=== PATIENT | female | born 1935 | race Caucasian/White ===

== ENCOUNTER 2021-02-25 16:56 | Inpatient (IN) | payer MEDICARE, OTHER, SELFPAY ==
--- NOTE | 2021-02-25 | ECG_ITS ---
Test Reason : LOW BP Blood Pressure : / mmHG Vent. Rate : 119 BPM Atrial Rate : 119 BPM P-R Int : 198 ms QRS Dur : 080 ms QT Int : 344 ms P-R-T Axes : 077 009 013 degrees QTc Int : 483 ms Sinus tachycardia Nonspecific ST and T wave abnormality Abnormal ECG When compared with ECG of 21-NOV-2012 16:13, Vent. rate has increased BY [address] now depressed in Lateral leads Inferior leads Referred By: Generic ED Physician Electronically Signed By:SHYANNE BOJORQUEZ MD
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
--- NOTE | ~2021-02-25 | XR_ITS ---
EXAMINATION: XR CHEST CLINICAL INFORMATION: Shortness of breath. COMPARISON: CT chest dated 08/20/2016. TECHNIQUE: Frontal view of the chest was obtained. FINDINGS: Diffuse, chronic-appearing interstitial prominence. Focal left lower lobe airspace opacity, which could represent atelectasis versus pneumonia. No pleural effusion or pneumothorax. Unremarkable cardiomediastinal silhouette. XR/XR chest 1V IMPRESSION: Left lower lobe opacity which could represent atelectasis versus pneumonia.
[2021-02-25 17:21] VITALS: BP 82/40; PULSE 124; RESP 20; TEMP 36.5; O2SAT 99; BMI 23.8
--- NOTE | 2021-02-25 18:07 | ED.NAVMDI ---
HPI - Nausea/Vomiting/Diarrhea General Chief complaint: Nausea/Vomiting/Diarrhea Stated complaint: vomiting Time Seen by Provider: 02/25/21 17:43 Source: patient Mode of arrival: ambulatory Limitations: no limitations History of Present Illness HPI Narrative: 85 y/o female with history of HTN, thyroid nodule, HLD who presents to the ER from home with 1 day of nausea, vomiting and diarrhea. She reports being at her sister's house playing cards yesterday afternoon, she drank 2 glasses of wine like she usually does. She had ham sandwich at home for lunch. On the way home from her sister's she started feeling unwell with severe nausea. She developed dark brown diarrhea last night and then vomiting all day today. She continues to have episodes of loose very dark stools. She feels very weak. She has some generalized abdominal discomfort but denies any pain. No fever, chills, urinary symptoms, chest pain or SOB. She has not eaten or drank anything today. No one else at home is sick. She is not on blood thinners. No hx GI bleed. Reports drinking ETOH 2x per week on Wednesdays and Fridays. MD elicited complaint: nausea, vomiting and diarrhea Onset (ago): day(s) (1) Description of vomiting: coffee grounds and continuous Description of diarrhea: black tarry Associated nausea: Yes Associated abdominal pain: No Location of pain: none Pain consistency: intermittent Severity: mild Quality: cramping Exacerbating factors: none Relieving factors: none Associated symptoms: loss of appetite, malaise and nausea/vomiting Related Data Home Medications Medication Instructions Recorded Confirmed amlodipine 5 mg tablet 1 tab PO DAILY 02/25/21 02/25/21 aspirin 81 mg tablet,delayed 81 mg PO Q7D 02/25/21 02/25/21 release losartan 100 1 tab PO DAILY 02/25/21 02/25/21 mg-hydrochlorothiazide 25 mg tablet methimazole 5 mg tablet 1 tab PO DAILY 02/25/21 02/25/21 metoprolol succinate 200 mg 200 mg PO DAILY 02/25/21 02/25/21 tablet,extended release 24 hr pravastatin 80 mg tablet 1 tab PO BEDTIME 02/25/21 02/25/21 Allergies Allergy/AdvReac Type Severity Reaction Status Date / Time No Known Allergies Allergy Verified 02/25/21 17:21 Review of Systems Review of Systems: Constitutional: No Fever, No Chills ENT/Mouth: No sore throat, No Rhinorrhea, No Swallowing Difficulty Eyes: No Eye Pain, No Swelling, No Redness Cardiovascular: No Chest Pain, No SOB, No Orthopnea, No Edema Respiratory: No Cough, No Sputum, No Wheezing, No dyspnea Gastrointestinal: + Nausea, + Vomiting, + Diarrhea, No abdominal Pain, No Hematochezia, + Melena Genitourinary: No Dysuria, No Urinary Frequency, No Hematuria Musculoskeletal: No joint pain, No Myalgias Skin: No Skin Lesions, No rash Neuro: + Weakness, No Numbness, No Dizziness, No Headache Psych: No Anxiety/Panic, No Depression Heme/Lymph: No Bruising, No Lymphadenopathy Endocrine: No Polyuria, No Polydipsia Gastrointestinal: Gastrointestinal: Reports nausea PMFSH Past Medical History Medical History (Updated 02/25/21 @ 21:34 by GEOFF Cash) High cholesterol Hypertension Surgical History (Updated 02/25/21 @ 17:24 by Jyothi Bangura RN) H/O: hysterectomy Social History Social History Advance Directives: No Advance Directives Information Provided: No Physical Exam Vital Signs: Vital Signs: Last Vital Signs Temp 98.0 F 02/25/21 20:00 Pulse 124 H 02/25/21 20:00 Resp 20 02/25/21 20:00 BP 109/43 L 02/25/21 20:00 Pulse Ox 99 02/25/21 20:00 Body Mass Index 23.8 Appearance: Alert. Oriented X3. No acute distress. Eyes: Pupils equal, round and reactive to light. ENT: Pharynx normal. Neck: Normal inspection. Neck supple. CVS: Normal heart rate and rhythm. Pulses normal. Respiratory: Mild respiratory distress with increased RR. Able to speak in complete sentences. Lungs are clear throughout Abdomen: Soft and nontender. +BS x4 JOSEMANUEL: black stool on panty liner, black stool on glove, no stool in rectal vault. normal rectal tone. no palpable hemorrhoids. Skin: Skin warm and dry. Normal skin color. Normal skin turgor. No rashes. Extremities: No lower extremity edema. Neuro: Oriented X 3. No motor deficit. No sensory deficit. Course Course Course Narrative: 85 y/o female presenting with 1 day of nausea with coffee ground emesis and melena. She is hypotensive and tachycardic on arrival, tachypenic with exertion. Concern for GI bleed and severe dehydration. Will give 30 cc/kg NS bolus now, IV protonix and IV zofran. CBC, coags, basic lab workup ordered as well as lactic acid and cultures. Reevaluation(s) Reevaluation #1: BP improved to 110s systolic before fluids started. Labs showing normocytic anemia with H/H 9.3/27.1, with a baseline of 13.4/39.1 back in August 2016. She also has a leukocytosis with WBC 15.3 which is most likely reactive from vomiting. Lactic acid 4.4. BUN significantly elevated at 70 concerning for UGIB. Doubt sepsis at this time, most likely etiology is GI bleed and dehydration. Will repeat lactic and H/H after hydration. Hold off on abx for now and will get CT abd/pelvis for further evaluation. Reevaluation #2: CT abdomen pelvis did not show any acute intra-abdominal findings. Her lactic acid improved to 2.4 after IV fluids. She remained slightly tachycardic in the low 100s. She is hoping to hold off on blood transfusion for now. Her hemoglobin remained stable at in the 9 range, although her hematocrit did down trend, this could be dilutional. She has had small amounts of melena but no large volume black tarry stool and no hematemesis or coffee-ground emesis while in the ED. Patient is to be admitted for further evaluation and management. Patient agreeable with plan. MDM - Nausea/Vomiting/Diarrhea Medical Records Attestation: I reviewed the patient's medical records. Lab Data Attestation: I reviewed the patient's lab results. Result diagrams: 02/25/21 20:23 02/25/21 17:59 Labs: Lab Results 02/25/21 02/25/21 02/25/21 Range/Units 17:59 17:59 17:59 WBC 15.3 H (4.8-10.8) X10*3/uL RBC 2.98 L (4.20-5.50) X10*6/uL Hgb 9.3 L (12.0-16.0) g/dl Hct 27.1 L (37.0-47.0) % MCV 90.9 (80.0-98.0) fL MCH 31.2 (27.0-33.0) pg MCHC 34.3 (31.0-35.0) g/dl RDW 12.5 (11.0-16.0) % Plt Count 373 (160-400) X10*3/uL MPV 9.9 (9.4-12.3) fL Immature Gran % (Auto) 0.6 H (0.0-0.4) % Neut % (Auto) 84.7 H (45-73) % Lymph % (Auto) 9.0 L (20-40) % [place] % (Auto) 5.4 (2-11) % Eos % (Auto) 0.1 (0-4) % Baso % (Auto) 0.2 (0-2) % Lymph # (Auto) 1.4 (1.2-4.9) X10*3/uL [place] # (Auto) 0.8 (0.1-1.2) X10*3/uL Eos # (Auto) 0.0 (0.0-0.4) X10*3/uL Baso # (Auto) 0.0 (0.0-0.2) X10*3/uL Abs Immat Gran (auto) 0.09 H (0.00-0.03) X10*3/uL Absolute Neuts (auto) 13.0 H (2.0-8.3) x10*3/uL Absolute Nucleated RBC 0.000 (0.0-0.012) X10*3/uL Nucleated RBC % (auto) 0.0 (0.0-0.2) /100WBC PT (9.9-13.0) SEC INR (0.9-1.1) Sodium 131 L (135-145) mmol/L Potassium 3.5 (3.3-5.1) mmol/L Chloride 96 (96-108) mmol/L Carbon Dioxide 22 (22-29) mmol/L Anion Gap 17 (12-20) BUN 70 H (9-16) mg/dL Creatinine 0.71 (0.5-1.4) mg/dL Estim Creat Clear Calc 47.4 Estimated GFR > 60 Random Glucose 192 H (60-115) mg/dL Lactic Acid 4.4 H* (0.5-2.0) mmol/L Calcium 10.2 (8.4-10.2) mg/dL Total Bilirubin 0.6 (0.0-1.0) mg/dL Direct Bilirubin 0.2 (0.0-0.5) mg/dL AST 17 (5-31) U/L ALT 13 (0-31) U/L Alkaline Phosphatase 61 (39-117) U/L Total Protein 6.0 L (6.5-8.0) g/dL Albumin 3.5 (3.5-5.0) g/dL Lipase 18 (8-78) U/L Urine Color Urine Appearance Urine pH (5.0-8.0) Ur Specific [place] (1.005-1.025) Urine Protein (NEG-TRACE) MG/DL Urine Glucose (UA) (NEG) MG/DL Urine Ketones (NEG) MG/DL Urine Blood (NEG) Urine Nitrite (NEG) Ur Leukocyte Esterase (NEG) Stool Occult Blood (NEGATIVE) COVID-19 (ERROL) (Negative) COVID-19 Clin Com Blood Type Antibody Screen 02/25/21 02/25/21 02/25/21 Range/Units 18:00 18:18 18:27 WBC (4.8-10.8) X10*3/uL RBC (4.20-5.50) X10*6/uL Hgb (12.0-16.0) g/dl Hct (37.0-47.0) % MCV (80.0-98.0) fL MCH (27.0-33.0) pg MCHC (31.0-35.0) g/dl RDW (11.0-16.0) % Plt Count (160-400) X10*3/uL MPV (9.4-12.3) fL Immature Gran % (Auto) (0.0-0.4) % Neut % (Auto) (45-73) % Lymph % (Auto) (20-40) % [place] % (Auto) (2-11) % Eos % (Auto) (0-4) % Baso % (Auto) (0-2) % Lymph # (Auto) (1.2-4.9) X10*3/uL [place] # (Auto) (0.1-1.2) X10*3/uL Eos # (Auto) (0.0-0.4) X10*3/uL Baso # (Auto) (0.0-0.2) X10*3/uL Abs Immat Gran (auto) (0.00-0.03) X10*3/uL Absolute Neuts (auto) (2.0-8.3) x10*3/uL Absolute Nucleated RBC (0.0-0.012) X10*3/uL Nucleated RBC % (auto) (0.0-0.2) /100WBC PT 12.7 (9.9-13.0) SEC INR 1.1 (0.9-1.1) Sodium (135-145) mmol/L Potassium (3.3-5.1) mmol/L Chloride (96-108) mmol/L Carbon Dioxide (22-29) mmol/L Anion Gap (12-20) BUN (9-16) mg/dL Creatinine (0.5-1.4) mg/dL Estim Creat Clear Calc Estimated GFR Random Glucose (60-115) mg/dL Lactic Acid (0.5-2.0) mmol/L Calcium (8.4-10.2) mg/dL Total Bilirubin (0.0-1.0) mg/dL Direct Bilirubin (0.0-0.5) mg/dL AST (5-31) U/L ALT (0-31) U/L Alkaline Phosphatase (39-117) U/L Total Protein (6.5-8.0) g/dL Albumin (3.5-5.0) g/dL Lipase (8-78) U/L Urine Color Urine Appearance Urine pH (5.0-8.0) Ur Specific [place] (1.005-1.025) Urine Protein (NEG-TRACE) MG/DL Urine Glucose (UA) (NEG) MG/DL Urine Ketones (NEG) MG/DL Urine Blood (NEG) Urine Nitrite (NEG) Ur Leukocyte Esterase (NEG) Stool Occult Blood POSITIVE (NEGATIVE) COVID-19 (ERROL) (Negative) COVID-19 Clin Com Blood Type O Positive Antibody Screen NEGATIVE 02/25/21 02/25/21 02/25/21 Range/Units 20:22 20:23 20:23 WBC (4.8-10.8) X10*3/uL RBC (4.20-5.50) X10*6/uL Hgb 9.1 L (12.0-16.0) g/dl Hct 23.8 L (37.0-47.0) % MCV (80.0-98.0) fL MCH (27.0-33.0) pg MCHC (31.0-35.0) g/dl RDW (11.0-16.0) % Plt Count (160-400) X10*3/uL MPV (9.4-12.3) fL Immature Gran % (Auto) (0.0-0.4) % Neut % (Auto) (45-73) % Lymph % (Auto) (20-40) % [place] % (Auto) (2-11) % Eos % (Auto) (0-4) % Baso % (Auto) (0-2) % Lymph # (Auto) (1.2-4.9) X10*3/uL [place] # (Auto) (0.1-1.2) X10*3/uL Eos # (Auto) (0.0-0.4) X10*3/uL Baso # (Auto) (0.0-0.2) X10*3/uL Abs Immat Gran (auto) (0.00-0.03) X10*3/uL Absolute Neuts (auto) (2.0-8.3) x10*3/uL Absolute Nucleated RBC (0.0-0.012) X10*3/uL Nucleated RBC % (auto) (0.0-0.2) /100WBC PT (9.9-13.0) SEC INR (0.9-1.1) Sodium (135-145) mmol/L Potassium (3.3-5.1) mmol/L Chloride (96-108) mmol/L Carbon Dioxide (22-29) mmol/L Anion Gap (12-20) BUN (9-16) mg/dL Creatinine (0.5-1.4) mg/dL Estim Creat Clear Calc Estimated GFR Random Glucose (60-115) mg/dL Lactic Acid 2.4 H* (0.5-2.0) mmol/L Calcium (8.4-10.2) mg/dL Total Bilirubin (0.0-1.0) mg/dL Direct Bilirubin (0.0-0.5) mg/dL AST (5-31) U/L ALT (0-31) U/L Alkaline Phosphatase (39-117) U/L Total Protein (6.5-8.0) g/dL Albumin (3.5-5.0) g/dL Lipase (8-78) U/L Urine Color Urine Appearance Urine pH (5.0-8.0) Ur Specific [place] (1.005-1.025) Urine Protein (NEG-TRACE) MG/DL Urine Glucose (UA) (NEG) MG/DL Urine Ketones (NEG) MG/DL Urine Blood (NEG) Urine Nitrite (NEG) Ur Leukocyte Esterase (NEG) Stool Occult Blood (NEGATIVE) COVID-19 (ERROL) Negative (Negative) COVID-19 Clin Com See Note Blood Type Antibody Screen 02/25/21 Range/Units 20:34 WBC (4.8-10.8) X10*3/uL RBC (4.20-5.50) X10*6/uL Hgb (12.0-16.0) g/dl Hct (37.0-47.0) % MCV (80.0-98.0) fL MCH (27.0-33.0) pg MCHC (31.0-35.0) g/dl RDW (11.0-16.0) % Plt Count (160-400) X10*3/uL MPV (9.4-12.3) fL Immature Gran % (Auto) (0.0-0.4) % Neut % (Auto) (45-73) % Lymph % (Auto) (20-40) % [place] % (Auto) (2-11) % Eos % (Auto) (0-4) % Baso % (Auto) (0-2) % Lymph # (Auto) (1.2-4.9) X10*3/uL [place] # (Auto) (0.1-1.2) X10*3/uL Eos # (Auto) (0.0-0.4) X10*3/uL Baso # (Auto) (0.0-0.2) X10*3/uL Abs Immat Gran (auto) (0.00-0.03) X10*3/uL Absolute Neuts (auto) (2.0-8.3) x10*3/uL Absolute Nucleated RBC (0.0-0.012) X10*3/uL Nucleated RBC % (auto) (0.0-0.2) /100WBC PT (9.9-13.0) SEC INR (0.9-1.1) Sodium (135-145) mmol/L Potassium (3.3-5.1) mmol/L Chloride (96-108) mmol/L Carbon Dioxide (22-29) mmol/L Anion Gap (12-20) BUN (9-16) mg/dL Creatinine (0.5-1.4) mg/dL Estim Creat Clear Calc Estimated GFR Random Glucose (60-115) mg/dL Lactic Acid (0.5-2.0) mmol/L Calcium (8.4-10.2) mg/dL Total Bilirubin (0.0-1.0) mg/dL Direct Bilirubin (0.0-0.5) mg/dL AST (5-31) U/L ALT (0-31) U/L Alkaline Phosphatase (39-117) U/L Total Protein (6.5-8.0) g/dL Albumin (3.5-5.0) g/dL Lipase (8-78) U/L Urine Color YELLOW Urine Appearance CLEAR Urine pH 5.5 (5.0-8.0) Ur Specific [place] <= 1.005 (1.005-1.025) Urine Protein NEG (NEG-TRACE) MG/DL Urine Glucose (UA) NEG (NEG) MG/DL Urine Ketones NEG (NEG) MG/DL Urine Blood NEG (NEG) Urine Nitrite NEG (NEG) Ur Leukocyte Esterase NEG (NEG) Stool Occult Blood (NEGATIVE) COVID-19 (ERROL) (Negative) COVID-19 Clin Com Blood Type Antibody Screen ECG Data Attestation: I personally reviewed and interpreted this ECG as follows: ECG interpretation date: 02/25/21 ECG interpretation time: 19:23 Interpretation: Sinus tachycardia, HR 119 bpm, nonspecific ST and T wave abnormality, No ST segment elevations. Critical Care Time Critical Care Time Critical Care Time: Yes Total Critical Care Time: 48 Attestation: I have personally provided critical care time exclusive of time spent on separately billable procedures. Time includes review of lab data, radiology results, discussion with consultants, and monitoring for potential decompensation. Intervention performed as documented. Discharge Plan Discharge Clinical Impression: Acute GI bleeding, Hypovolemia, Gastroenteritis Patient Disposition: Admitted As Inpatient
[2021-02-25] MEDS: 0.9 % Sodium Chloride 1,769.01 ML 1769.01 ML IV (18:24)
[2021-02-25 18:25] LABS: MANUAL DIFF FLAG NO
[2021-02-25] MEDS: Pantoprazole Sodium 40 MG/10 ML VIAL IVPUSH (18:25)
[2021-02-25] MEDS: ondansetron HCL 4 MG/2 ML VIAL IVPUSH (18:25)
[2021-02-25 18:34] LABS: OBS Int Ctl Valid YES; OBS1 POSITIVE (NEGATIVE)
[2021-02-25 18:38] LABS: INTERNATIONAL NORM RATIO 1.1 (0.9-1.1); Prothrombin Time 12.7 SEC (9.9-13.0)
[2021-02-25 18:43] LABS: Alanine Aminotransferase 13 U/L (0-31); Albumin Level 3.5 g/dL (3.5-5.0); Alkaline Phosphatase 61 U/L (39-117); Anion Gap 17 (12-20); Aspartate Amino Transferase 17 U/L (5-31); Bilirubin Direct 0.2 mg/dL (0.0-0.5); Bilirubin Total 0.6 mg/dL (0.0-1.0); Blood Urea Nitrogen 70 mg/dL (9-16); Calcium 10.2 mg/dL (8.4-10.2); Carbon Dioxide 22 mmol/L (22-29); Chloride 96 mmol/L (96-108); Creatinine Clr Calc Pharmacy 47.4; Estimated Glomerular Filt Rate > 60; Glucose Random 192 mg/dL (60-115); Lipase 18 U/L (8-78); Potassium 3.5 mmol/L (3.3-5.1); Sodium 131 mmol/L (135-145)
[2021-02-25 18:45] LABS: Lactic Acid 4.4 mmol/L (0.5-2.0)
[2021-02-25 18:49] LABS: Basophils Percent Auto 0.2 % (0-2); Eosinophils Percent Auto 0.1 % (0-4); Hematocrit 27.1 % (37.0-47.0); Hemoglobin 9.3 g/dl (12.0-16.0); Imm Gran Abs Auto 0.09 X10*3/uL (0.00-0.03); Imm Gran Pct Auto 0.6 % (0.0-0.4); Lymphocytes Absolute Auto 1.4 X10*3/uL (1.2-4.9); Mean Corpuscular HGB Conc 34.3 g/dl (31.0-35.0); Mean Corpuscular Hemoglobin 31.2 pg (27.0-33.0); Mean Corpuscular Volume 90.9 fL (80.0-98.0); Mean Platelet Volume 9.9 fL (9.4-12.3); Monocytes Absolute Auto 0.8 X10*3/uL (0.1-1.2); Monocytes Percent Auto 5.4 % (2-11); Neutrophils Percent Auto 84.7 % (45-73); Platelet Count 373 X10*3/uL (160-400); Red Blood Count 2.98 X10*6/uL (4.20-5.50); Red Cell Distribution Width 12.5 % (11.0-16.0); White Blood Count 15.3 X10*3/uL (4.8-10.8)
[2021-02-25 19:00] VITALS: BP 126/65; PULSE 108; RESP 21; TEMP 36.9; O2SAT 99
[2021-02-25] MEDS: iohexoL 350 MG/ML 100 ML INFUS..BTL IV (19:18)
--- NOTE | 2021-02-25 19:47 | PHA.MEDREC ---
Pharmacy Consult ? Medication Reconciliation Pharmacy has completed the medication reconciliation. Patient takes ASA 81mg once a week Thanks Ruddy Valenzuela
[2021-02-25 20:00] VITALS: BP 109/43; PULSE 124; RESP 20; TEMP 36.7; O2SAT 99
[2021-02-25 20:23] LABS: Reflex Lactate? Lactic Acid Added
[2021-02-25 20:30] LABS: Hematocrit 23.8 % (37.0-47.0); Hemoglobin 9.1 g/dl (12.0-16.0)
[2021-02-25 20:41] LABS: Appearance Urine CLEAR; Color Urine YELLOW; Glucose Urine UA NEG (NEG); Leukocyte Esterase Urine NEG (NEG); Nitrite Urine NEG (NEG); PH 5.5 (5.0-8.0); Specific Gravity - Urine <= 1.005 (1.005-1.025); Urine Blood NEG (NEG); Urine Ketones NEG (NEG); Urine Protein NEG (NEG-TRACE)
[2021-02-25] MEDS: Piperacillin Sodium/Tazobactam 3.375 GM in 0.9 % Sodium Chloride 50 ML IV (20:43)
[2021-02-25 20:44] LABS: COVID-19 Test Negative (Negative)
[2021-02-25 20:49] LABS: Lactic Acid 2.4 mmol/L (0.5-2.0)
[2021-02-25 21:42] VITALS: BP 125/51; PULSE 114; RESP 16; TEMP 36.8; O2SAT 99
[2021-02-25 22:27] LABS: Reflex Lactate? Lactic Acid Added
--- NOTE | 2021-02-25 22:40 | P.HPHOSP_ITS ---
History of Present Illness Date of Service: 02/25/21 Chief Complaint: Nausea/vomiting 85-year-old female with a past medical history of hypertension, hyperlipidemia presented to the hospital with a chief complaint of nausea/vomiting. Patient reported that suggest today she has been having profuse nausea and vomiting, productive vomiting; dark brown vomitus; also had diarrhea with a dark stool. Mentioned that she has poor oral intake; and has been tired and exhausted; subsequently came to the ER for further evaluation. Mentions that she has abdominal discomfort secondary to vomiting. Denies any chest pain palpitations. Denies any numbness tingling or focal weakness. Denies any urinary symptoms. Denies any cough or sputum production. Review of all other systems is negative except mentioned above ER course: Per ER team patient was initially noted to be hypotensive with blood pressure of 80/40; noted to be dehydrated; given IR IV fluids. Blood pressure improved. Lactate was noted to be severely elevated; patient stool guaiac was positive; given pantoprazole. Admitted to the hospital for further management. [facility] Medical History (Updated 02/25/21 @ 21:34 by GEOFF Cash) High cholesterol Hypertension Pertinent family history: Reviewed Surgical History (Updated 02/25/21 @ 17:24 by Jyothi Bangura RN) H/O: hysterectomy Social History Smoked in Last 30 Days: No Advance Directives: No Advance Directives Information Provided: No Meds Allergies Allergy/AdvReac Type Severity Reaction Status Date / Time No Known Allergies Allergy Verified 02/25/21 17:21 Active Medications: Current Medications Acetaminophen (Acetaminophen 325 Mg Tablet) 650 mg PO Q6H PRN PRN Reason: Pain, Mild (Pain Scale 1-3) Dextrose/Sodium Chloride (D5ns) 1,000 mls @ 75 mls/hr IVCONT .[id number] MUNIRA Melatonin (Melatonin 3 Mg Tablet) 6 mg PO BEDTIME PRN PRN Reason: Insomnia Methimazole (Methimazole 5 Mg Tablet) 5 mg PO DAILY MUNIRA Metoprolol Succinate (Metoprolol Succinate Er 12.5 Mg Halftab.Er.24h) 12.5 mg PO DAILY MUNIRA; Protocol Ondansetron HCl (Ondansetron Hcl 4 Mg/2 Ml Vial) 4 mg IVPUSH Q8H PRN PRN Reason: Nausea and Vomiting Pantoprazole Sodium (Pantoprazole Sodium 40 Mg/10 Ml Vial) 40 mg IVPUSH DAILY@0630 [facility] Pharmacy Consult (Consult Rx Perform Med Rec) 1 each MISCELLANE ONCE PRN PRN Reason: Consult order Pravastatin Sodium (Pravastatin Sodium 80 Mg Tablet) 80 mg PO BEDTIME [facility] Senna (Sennosides 8.6 Mg Tablet) 17.2 mg PO BEDTIME PRN PRN Reason: Constipation Sodium Chloride (0.9 % Sodium Chloride Flush 3 Ml Syringe) 3 ml IVFLUSH QSHIFT [facility] Home Medications Medication Instructions Recorded Confirmed Last Taken Type amlodipine 5 mg tablet 1 tab PO DAILY 02/25/21 02/25/21 02/25/21 History aspirin 81 mg tablet,delayed 81 mg PO Q7D 02/25/21 02/25/21 02/24/21 History release losartan 100 1 tab PO DAILY 02/25/21 02/25/21 02/25/21 History mg-hydrochlorothiazide 25 mg tablet methimazole 5 mg tablet 1 tab PO DAILY 02/25/21 02/25/21 02/25/21 History metoprolol succinate 200 mg 200 mg PO DAILY 02/25/21 02/25/21 02/25/21 History tablet,extended release 24 hr pravastatin 80 mg tablet 1 tab PO BEDTIME 02/25/21 02/25/21 02/24/21 History Physical Exam Vital Signs and Narrative: Vital Signs: Last Vital Signs Temp 98.2 F 02/25/21 21:42 Pulse 114 H 02/25/21 21:42 Resp 16 02/25/21 21:42 BP 125/51 L 02/25/21 21:42 Pulse Ox 99 02/25/21 21:42 Body Mass Index 23.8 Gen: Appears be in no acute distress HEENT: NCAT, Moist mucosa. Pulmonary: Vesicular breath sounds, fair air entry CVS: Normal S1-S2 Abdomen: BS+, Soft, Nontender Extremities: Warm well perfused Neuro: Alert and awake. Results Labs CBC and Chem 7: 02/26/21 05:32 02/25/21 17:59 Labs: Laboratory Results - last 24 hr 02/25/21 02/25/21 02/25/21 17:59 17:59 17:59 MCV 90.9 MCH 31.2 MCHC 34.3 RDW 12.5 Plt Count 373 MPV 9.9 Immature Gran % (Auto) 0.6 H Neut % (Auto) 84.7 H Lymph % (Auto) 9.0 L [place] % (Auto) 5.4 Eos % (Auto) 0.1 Baso % (Auto) 0.2 Lymph # (Auto) 1.4 [place] # (Auto) 0.8 Eos # (Auto) 0.0 Baso # (Auto) 0.0 Abs Immat Gran (auto) 0.09 H Absolute Neuts (auto) 13.0 H Absolute Nucleated RBC 0.000 Nucleated RBC % (auto) 0.0 PT INR Anion Gap 17 Estim Creat Clear Calc 47.4 Estimated GFR > 60 Random Glucose 192 H Lactic Acid 4.4 H* Calcium 10.2 Total Bilirubin 0.6 Direct Bilirubin 0.2 AST 17 ALT 13 Alkaline Phosphatase 61 Total Protein 6.0 L Albumin 3.5 Lipase 18 Urine Color Urine Appearance Urine pH Ur Specific [place] Urine Protein Urine Glucose (UA) Urine Ketones Urine Blood Urine Nitrite Ur Leukocyte Esterase Stool Occult Blood COVID-19 (ERROL) COVID-19 [facility] Blood Type Antibody Screen 02/25/21 02/25/21 02/25/21 18:00 18:18 18:27 MCV MCH MCHC RDW Plt Count MPV Immature Gran % (Auto) Neut % (Auto) Lymph % (Auto) [place] % (Auto) Eos % (Auto) Baso % (Auto) Lymph # (Auto) [place] # (Auto) Eos # (Auto) Baso # (Auto) Abs Immat Gran (auto) Absolute Neuts (auto) Absolute Nucleated RBC Nucleated RBC % (auto) PT 12.7 INR 1.1 Anion Gap Estim Creat Clear Calc Estimated GFR Random Glucose Lactic Acid Calcium Total Bilirubin Direct Bilirubin AST ALT Alkaline Phosphatase Total Protein Albumin Lipase Urine Color Urine Appearance Urine pH Ur Specific [place] Urine Protein Urine Glucose (UA) Urine Ketones Urine Blood Urine Nitrite Ur Leukocyte Esterase Stool Occult Blood POSITIVE COVID-19 (ERROL) COVID-19 [facility] Com Blood Type O Positive Antibody Screen NEGATIVE 02/25/21 02/25/21 02/25/21 20:22 20:23 20:34 MCV MCH MCHC RDW Plt Count MPV Immature Gran % (Auto) Neut % (Auto) Lymph % (Auto) [place] % (Auto) Eos % (Auto) Baso % (Auto) Lymph # (Auto) [place] # (Auto) Eos # (Auto) Baso # (Auto) Abs Immat Gran (auto) Absolute Neuts (auto) Absolute Nucleated RBC Nucleated RBC % (auto) PT INR Anion Gap Estim Creat Clear Calc Estimated GFR Random Glucose Lactic Acid 2.4 H* Calcium Total Bilirubin Direct Bilirubin AST ALT Alkaline Phosphatase Total Protein Albumin Lipase Urine Color YELLOW Urine Appearance CLEAR Urine pH 5.5 Ur Specific [employer] <= 1.005 Urine Protein NEG Urine Glucose (UA) NEG Urine Ketones NEG Urine Blood NEG Urine Nitrite NEG Ur Leukocyte Esterase NEG Stool Occult Blood COVID-19 (ERROL) Negative COVID-19 Clin Com See Note Blood Type Antibody Screen Imaging Radiologist's Impressions: Impressions Chest X-Ray 02/25/21 18:17 IMPRESSION: Left lower lobe opacity which could represent atelectasis versus pneumonia. Abdomen/Pelvis CT 02/25/21 18:52 IMPRESSION: CHEST: Left 7th through 11th anterior lateral rib fractures. Small left pleural effusion. No pneumothorax. Small amount of fluid in the superior pericardial recess. Heterogeneous thyroid gland with question dominant lower right or isthmus nodule. This could be better evaluated with thyroid ultrasound. ABDOMEN AND PELVIS: Liver and bilateral renal cysts. Diverticulosis. Large high attenuation collection in the left lateral and posterior abdominal wall adjacent to the left lower ribs suggestive of hematoma. Old L2 vertebral body compression fracture. Findings were communicated to Belkys Frank by telephone 08/20/2016 at 1:50 PM. SPLEEN: Unremarkable. ADRENAL GLANDS: Lobulated left adrenal gland, unchanged. Unremarkable right adrenal gland. No new adrenal nodule. KIDNEYS AND URETERS: The kidneys are normal in size, shape, and attenuation. No hydronephrosis, hydroureter, or calculi seen. Multiple bilateral renal cysts have slightly increased in size when compared to the prior examination. Findings are not clinically significant and no follow-up imaging is recommended. BLADDER: Small amount of air within the urinary bladder, likely related to recent instrumentation. No wall thickening or inflammatory change. GASTROINTESTINAL TRACT: Colonic diverticulosis without evidence of acute diverticulitis. No bowel wall thickening or associated inflammatory change. No small or large bowel obstruction. Appendix not identified, however, no right lower quadrant inflammatory change to suggest acute appendicitis. Redemonstration of a small, sliding hiatal hernia. PERITONEAL CAVITY: No intra-abdominal free air or free fluid. No intra-abdominal fluid collection/abscess formation. ABDOMINAL WALL: No significant hernia is appreciated. LYMPH NODES: No significant lymphadenopathy. VASCULAR: No abdominal aortic dilatation or dissection. Scattered atherosclerotic calcifications. PELVIC VISCERA: Uterus appears surgically absent. OSSEOUS STRUCTURES: Chronic superior endplate compression deformity of L1, unchanged. No acute osseous abnormality. IMPRESSION: 1. No acute intra-abdominal or intrapelvic findings to explain the patient's pain. 2. Diverticulosis without evidence of acute diverticulitis. No small or large bowel obstruction. 3. Additional chronic findings, not significantly changed as above. Assessment and Plan (1) Acute GI bleeding: Status: Acute (2) Hypovolemia: Status: Acute (3) Gastroenteritis: Status: Acute 85-year-old female with a past medical history of hypertension, hyperlipidemia presented to the hospital with a chief complaint of nausea/vomiting. Gastroenteritis: IV fluids. Supportive care. If any further episodes of diarrhea will send stool studies. GI bleed: Patient reports dark vomitus and dark stool. Stool guaiac was positive. IV tPA. Gastroenterology consult. Serial H7H f/u HGB dropped to 6.8; Obtained blood consent; Will transfuse 1 u. Lactic acidosis: In The setting of dehydration. On IV fluids. Hypotension: Patient blood pressure improving with IV fluids. Will hold home antihypertensives except for metoprolol. Metoprolol dose reduced to 12.5 mg with holding parameters. DVT prophylaxis: SCD boots Code status: Full code Quality Stroke Does the patient have a stroke diagnosis?: No VTE Prior VTE?: No VTE Risk Level:: Medical - moderate - high VTE Device Contraindication: N/A - Device Ordered VTE Drug Contraindication: Treatment Not Indicated
[2021-02-25 22:48] VITALS: BP 121/63; PULSE 102; RESP 18; TEMP 37.1; O2SAT 99
[2021-02-25] MEDS: Dextrose 5 % and 0.9 % NaCl 1,000 ML 75 ML IVCONT (22:50)
[2021-02-25 23:30] LABS: ~Lactic Acid-LAB USE ONLY 1.2 mmol/L (0.5-2.0)
[2021-02-26] VITALS (18 sets, daily range): BP systolic 92–153; BP diastolic 45–72; PULSE 79–106; RESP 14–22; TEMP 36.1–37.4; O2SAT 96–100
[2021-02-26 05:49] LABS: MANUAL DIFF FLAG NO
[2021-02-26 05:51] LABS: Basophils Percent Auto 0.4 % (0-2); Eosinophils Percent Auto 0.1 % (0-4); Imm Gran Abs Auto 0.03 X10*3/uL (0.00-0.03); Imm Gran Pct Auto 0.4 % (0.0-0.4); Lymphocytes Absolute Auto 1.2 X10*3/uL (1.2-4.9); Lymphocytes Percent Auto 14.7 % (20-40); Mean Corpuscular HGB Conc 35.1 g/dl (31.0-35.0); Mean Corpuscular Hemoglobin 31.8 pg (27.0-33.0); Mean Corpuscular Volume 90.7 fL (80.0-98.0); Mean Platelet Volume 9.3 fL (9.4-12.3); Monocytes Absolute Auto 0.8 X10*3/uL (0.1-1.2); Monocytes Percent Auto 9.4 % (2-11); Neutrophils Absolute Auto 6.2 x10*3/uL (2.0-8.3); Platelet Count 244 X10*3/uL (160-400); Red Blood Count 2.14 X10*6/uL (4.20-5.50); Red Cell Distribution Width 12.7 % (11.0-16.0); White Blood Count 8.3 X10*3/uL (4.8-10.8)
[2021-02-26 05:57] LABS: Hemoglobin 6.8 g/dl (12.0-16.0)
[2021-02-26 05:58] LABS: Hematocrit 19.4 % (37.0-47.0)
[2021-02-26 06:13] LABS: Anion Gap 8 (12-20); Blood Urea Nitrogen 45 mg/dL (9-16); Calcium 9.1 mg/dL (8.4-10.2); Carbon Dioxide 27 mmol/L (22-29); Chloride 106 mmol/L (96-108); Creatinine Clr Calc Pharmacy 59.1; Estimated Glomerular Filt Rate > 60; Glucose Random 123 mg/dL (60-115); Sodium 138 mmol/L (135-145)
[2021-02-26] MEDS: Pantoprazole Sodium 40 MG/10 ML VIAL IVPUSH ×2 (06:23→16:00)
[2021-02-26] MEDS: 0.9 % Sodium Chloride Flush 3 ML SYRINGE IVFLUSH (08:00)
[2021-02-26] MEDS: methIMAzole 5 MG TABLET PO (08:40)
[2021-02-26] MEDS: Metoprolol Succinate ER 12.5 MG HALFTAB.ER.24H PO (08:40)
--- NOTE | 2021-02-26 08:46 | P.PNIM_ITS ---
Subjective Subjective Date of Service: 02/26/21 Interval History: cc: melena and hematemesis interval history: feeling much better, no beeding so far today Cardiovascular Cardiovascular: Reports no additional cardiovascular complaints Respiratory Respiratory: Reports no additional respiratory complaints Physical Exam Vital Signs: Vital Signs: Last Vital Signs Temp 97 F 02/26/21 06:51 Pulse 101 H 02/26/21 08:40 Resp 19 02/26/21 07:57 BP 134/69 02/26/21 08:40 Pulse Ox 100 02/26/21 07:57 Body Mass Index 23.8 General: AO X 3, no acute distress Resp: CTA bilateral, no accessory muscles used CVS: S1,S2,RRR GI: soft, non tender, non distended Neuro: motor grossly intact, alert Psych: appropriate affect, appropriate insight Objective Data Active Medications Acetaminophen (Acetaminophen 325 Mg Tablet) 650 mg PO Q6H PRN PRN Reason: Pain, Mild (Pain Scale 1-3) Dextrose/Sodium Chloride (D5ns) 1,000 mls @ 75 mls/hr IVCONT .[id number] [facility] Last Admin: 02/25/21 22:50 Dose: 75 mls/hr Documented by: LEW Melatonin (Melatonin 3 Mg Tablet) 6 mg PO BEDTIME PRN PRN Reason: Insomnia Methimazole (Methimazole 5 Mg Tablet) 5 mg PO DAILY [facility] Last Admin: 02/26/21 08:40 Dose: 5 mg Documented by: CHRISTINA Metoprolol Succinate (Metoprolol Succinate Er 12.5 Mg Halftab.Er.24h) 12.5 mg PO DAILY [facility]; Protocol Last Admin: 02/26/21 08:40 Dose: 12.5 mg Documented by: CHRISTINA Ondansetron HCl (Ondansetron Hcl 4 Mg/2 Ml Vial) 4 mg IVPUSH Q8H PRN PRN Reason: Nausea and Vomiting Pantoprazole Sodium (Pantoprazole Sodium 40 Mg/10 Ml Vial) 40 mg IVPUSH BID@0630,1630 [facility] Pharmacy Consult (Consult Rx Perform Med Rec) 1 each MISCELLANE ONCE PRN PRN Reason: Consult order Pravastatin Sodium (Pravastatin Sodium 80 Mg Tablet) 80 mg PO BEDTIME [facility] Senna (Sennosides 8.6 Mg Tablet) 17.2 mg PO BEDTIME PRN PRN Reason: Constipation Sodium Chloride (0.9 % Sodium Chloride Flush 3 Ml Syringe) 3 ml IVFLUSH QSHIFT [facility] Last Admin: 02/26/21 08:00 Dose: 3 ml Documented by: CHRISTINA Labs CBC & Chem 7: 02/26/21 05:32 02/26/21 05:32 Labs: Laboratory Results - last 24 hr 02/25/21 02/25/21 02/25/21 17:59 17:59 17:59 MCV 90.9 MCH 31.2 MCHC 34.3 RDW 12.5 Plt Count 373 MPV 9.9 Immature Gran % (Auto) 0.6 H Neut % (Auto) 84.7 H Lymph % (Auto) 9.0 L Bullock % (Auto) 5.4 Eos % (Auto) 0.1 Baso % (Auto) 0.2 Lymph # (Auto) 1.4 Bullock # (Auto) 0.8 Eos # (Auto) 0.0 Baso # (Auto) 0.0 Abs Immat Gran (auto) 0.09 H Absolute Neuts (auto) 13.0 H Absolute Nucleated RBC 0.000 Nucleated RBC % (auto) 0.0 PT INR Anion Gap 17 Estim Creat Clear Calc 47.4 Estimated GFR > 60 Random Glucose 192 H Lactic Acid 4.4 H* Lactic Acid Fup @ 2Hr Calcium 10.2 Total Bilirubin 0.6 Direct Bilirubin 0.2 AST 17 ALT 13 Alkaline Phosphatase 61 Total Protein 6.0 L Albumin 3.5 Lipase 18 Urine Color Urine Appearance Urine pH Ur Specific [place] Urine Protein Urine Glucose (UA) Urine Ketones Urine Blood Urine Nitrite Ur Leukocyte Esterase Stool Occult Blood COVID-19 (ERROL) COVID-19 Clin Com Blood Type Antibody Screen Crossmatch 02/25/21 02/25/21 02/25/21 18:00 18:18 18:27 MCV MCH MCHC RDW Plt Count MPV Immature Gran % (Auto) Neut % (Auto) Lymph % (Auto) Bullock % (Auto) Eos % (Auto) Baso % (Auto) Lymph # (Auto) Bull[place] # (Auto) Eos # (Auto) Baso # (Auto) Abs Immat Gran (auto) Absolute Neuts (auto) Absolute Nucleated RBC Nucleated RBC % (auto) PT 12.7 INR 1.1 Anion Gap Estim Creat Clear Calc Estimated GFR Random Glucose Lactic Acid Lactic Acid Fup @ 2Hr Calcium Total Bilirubin Direct Bilirubin AST ALT Alkaline Phosphatase Total Protein Albumin Lipase Urine Color Urine Appearance Urine pH Ur Specific [place] Urine Protein Urine Glucose (UA) Urine Ketones Urine Blood Urine Nitrite Ur Leukocyte Esterase Stool Occult Blood POSITIVE COVID-19 (ERROL) COVID-19 Clin Com Blood Type O Positive Antibody Screen NEGATIVE Crossmatch See Detail 02/25/21 02/25/21 02/25/21 20:22 20:23 20:34 MCV MCH MCHC RDW Plt Count MPV Immature Gran % (Auto) Neut % (Auto) Lymph % (Auto) [place] % (Auto) Eos % (Auto) Baso % (Auto) Lymph # (Auto) Bull[place] # (Auto) Eos # (Auto) Baso # (Auto) Abs Immat Gran (auto) Absolute Neuts (auto) Absolute Nucleated RBC Nucleated RBC % (auto) PT INR Anion Gap Estim Creat Clear Calc Estimated GFR Random Glucose Lactic Acid 2.4 H* Lactic Acid Fup @ 2Hr Calcium Total Bilirubin Direct Bilirubin AST ALT Alkaline Phosphatase Total Protein Albumin Lipase Urine Color YELLOW Urine Appearance CLEAR Urine pH 5.5 Ur Specific [place] <= 1.005 Urine Protein NEG Urine Glucose (UA) NEG Urine Ketones NEG Urine Blood NEG Urine Nitrite NEG Ur Leukocyte Esterase NEG Stool Occult Blood COVID-19 (ERROL) Negative COVID-19 Clin Com See Note Blood Type Antibody Screen Crossmatch 02/25/21 02/26/21 02/26/21 23:11 05:32 05:32 MCV 90.7 MCH 31.8 MCHC 35.1 H RDW 12.7 Plt Count 244 D MPV 9.3 L Immature Gran % (Auto) 0.4 Neut % (Auto) 75.0 H Lymph % (Auto) 14.7 L Bull[place] % (Auto) 9.4 Eos % (Auto) 0.1 Baso % (Auto) 0.4 Lymph # (Auto) 1.2 [place] # (Auto) 0.8 Eos # (Auto) 0.0 Baso # (Auto) 0.0 Abs Immat Gran (auto) 0.03 Absolute Neuts (auto) 6.2 Absolute Nucleated RBC 0.000 Nucleated RBC % (auto) 0.0 PT INR Anion Gap 8 L Estim Creat Clear Calc 59.1 Estimated GFR > 60 Random Glucose 123 H Lactic Acid Lactic Acid Fup @ 2Hr 1.2 Calcium 9.1 D Total Bilirubin Direct Bilirubin AST ALT Alkaline Phosphatase Total Protein Albumin Lipase Urine Color Urine Appearance Urine pH Ur Specific [place] Urine Protein Urine Glucose (UA) Urine Ketones Urine Blood Urine Nitrite Ur Leukocyte Esterase Stool Occult Blood COVID-19 (ERROL) COVID-19 Clin Com Blood Type Antibody Screen Crossmatch Assessment and Plan (1) Acute GI bleeding: Status: Acute Assessment and Plan: 85F presented with coffee ground emesis and melena acute blood loss anemia due to upper GI bleed complicated by hypotension and lactic acidosis IV protonix bid transsfuse 2 untis prbc monitor cbc GI eval hold aspirin hold antihypertensives lactic acidosis due to hypovolemia not sepsis hyperthyroid tapazole dvt prophylaxis - mechanical due to gi bleed Quality Stroke Does the patient have a stroke diagnosis?: No VTE Prior VTE?: No VTE Risk Level:: Medical - moderate - high VTE Device Contraindication: N/A - Device Ordered VTE Drug Contraindication: Treatment Not Indicated
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
[2021-02-26] MEDS: Dextrose 5 % and 0.9 % NaCl 1,000 ML 75 ML IVCONT (11:50)
[2021-02-26] MEDS: Furosemide 20 MG/2 ML VIAL IVPUSH (13:02)
--- NOTE | 2021-02-26 13:39 | PC.NURSE ---
Patient left to short stay for EGD at 1338.
--- NOTE | 2021-02-26 13:48 | MHC.SHP ---
Pre-Procedural Eval Section A Date of Service: 02/26/21 The patient is an INPATIENT: Yes Changes since office visit: No Cold of Flu in the past 2 weeks, No New Medical Problems, No Changes in Medication and No Patient answered all questions The History & Physical has been completed within 30 days and I have reviewed it.: Yes Section B Chief Complaint: Nausea/Vomiting Allergies: Allergies Allergy/AdvReac Type Severity Reaction Status Date / Time No Known Allergies Allergy Verified 02/25/21 17:21 Plan I have reviewed the history and physical and performed a pertinent physical examination on my patient. No changes have occurred unless specified.
--- NOTE | 2021-02-26 13:48 | PM.EVENT ---
Event Note Date of Service: 02/26/21 Event Note: GI 85 yo admitted with UGI bleed s/p 2u PRBCs, ddx includes pud, ca, avms, esophagitis and gastritis. Plan for EGD today pt aware of risks and benefits and agrees to proceed.
--- NOTE | 2021-02-26 13:54 | HO.ANESPROP2 ---
[facility] Active Problems Active Problems: All Active Problems (Updated 02/25/21 @ 21:34 by GEOFF Cash) Acute GI bleeding (Acute) Hypovolemia (Acute) Gastroenteritis (Acute) Past Medical History Medical History (Updated 02/25/21 @ 21:34 by GEOFF Cash) High cholesterol Hypertension Surgical History Surgical History (Updated 02/25/21 @ 17:24 by Jyothi Bangura RN) H/O: hysterectomy Social History Social History Patient Tobacco Use Status: Former Tobacco user Tobacco use type: Cigarette Years Smoked: 10 Smoked in Last 30 Days: No Use of substances other than those prescribed or required for medical reasons: No Are you DNR?: No Advance Directives: No Advance Directives Information Provided: No service: No Current occupational status: retired [employer] Allergies Allergy/AdvReac Type Severity Reaction Status Date / Time No Known Allergies Allergy Verified 02/25/21 17:21 Active Medications: Current Medications Acetaminophen (Acetaminophen 325 Mg Tablet) 650 mg PO Q6H PRN PRN Reason: Pain, Mild (Pain Scale 1-3) Dextrose/Sodium Chloride (D5ns) 1,000 mls @ 75 mls/hr IVCONT .[id number] [facility] Last Admin: 02/26/21 11:50 Dose: 75 mls/hr Documented by: Melatonin (Melatonin 3 Mg Tablet) 6 mg PO BEDTIME PRN PRN Reason: Insomnia Methimazole (Methimazole 5 Mg Tablet) 5 mg PO DAILY [facility] Last Admin: 02/26/21 08:40 Dose: 5 mg Documented by: Metoprolol Succinate (Metoprolol Succinate Er 12.5 Mg Halftab.Er.24h) 12.5 mg PO DAILY [facility]; Protocol Last Admin: 02/26/21 08:40 Dose: 12.5 mg Documented by: Ondansetron HCl (Ondansetron Hcl 4 Mg/2 Ml Vial) 4 mg IVPUSH Q8H PRN PRN Reason: Nausea and Vomiting Pantoprazole Sodium (Pantoprazole Sodium 40 Mg/10 Ml Vial) 40 mg IVPUSH BID@0630,1630 [facility] Pharmacy Consult (Consult Rx Perform Med Rec) 1 each MISCELLANE ONCE PRN PRN Reason: Consult order Pravastatin Sodium (Pravastatin Sodium 80 Mg Tablet) 80 mg PO BEDTIME [facility] Senna (Sennosides 8.6 Mg Tablet) 17.2 mg PO BEDTIME PRN PRN Reason: Constipation Sodium Chloride (0.9 % Sodium Chloride Flush 3 Ml Syringe) 3 ml IVFLUSH QSHIFT [facility] Last Admin: 02/26/21 08:00 Dose: 3 ml Documented by: Home Medications Medication Instructions Recorded Confirmed Last Taken Type amlodipine 5 mg tablet 1 tab PO DAILY 02/25/21 02/25/21 02/25/21 History aspirin 81 mg tablet,delayed 81 mg PO Q7D 02/25/21 02/25/21 02/21/21 History release losartan 100 1 tab PO DAILY 02/25/21 02/25/21 02/25/21 History mg-hydrochlorothiazide 25 mg tablet methimazole 5 mg tablet 1 tab PO DAILY 02/25/21 02/25/21 02/25/21 History metoprolol succinate 200 mg 200 mg PO DAILY 02/25/21 02/25/21 02/25/21 History tablet,extended release 24 hr pravastatin 80 mg tablet 1 tab PO BEDTIME 02/25/21 02/25/21 02/24/21 History Exam Exam Date and Time: February 26, 2021 1354 Height,Weight and Vital Signs: Height 5 ft 2 in Weight 58.967 kg Last Vital Signs Temp 97.9 F 02/26/21 13:49 Pulse 95 02/26/21 13:49 Resp 16 02/26/21 13:49 BP 153/71 H 02/26/21 13:49 Pulse Ox 99 02/26/21 13:49 Pertinent Lab Results Pertinent Lab Results: Laboratory Tests 02/25/21 02/25/21 02/25/21 17:59 17:59 17:59 WBC 15.3 H RBC 2.98 L Hgb 9.3 L Hct 27.1 L MCV 90.9 MCH 31.2 MCHC 34.3 RDW 12.5 Plt Count 373 MPV 9.9 Immature Gran % (Auto) 0.6 H Neut % (Auto) 84.7 H Lymph % (Auto) 9.0 L [place] % (Auto) 5.4 Eos % (Auto) 0.1 Baso % (Auto) 0.2 Lymph # (Auto) 1.4 [place] # (Auto) 0.8 Eos # (Auto) 0.0 Baso # (Auto) 0.0 Abs Immat Gran (auto) 0.09 H Absolute Neuts (auto) 13.0 H Absolute Nucleated RBC 0.000 Nucleated RBC % (auto) 0.0 PT INR Sodium 131 L Potassium 3.5 Chloride 96 Carbon Dioxide 22 Anion Gap 17 BUN 70 H Creatinine 0.71 Estim Creat Clear Calc 47.4 Estimated GFR > 60 Random Glucose 192 H Lactic Acid 4.4 H* Lactic Acid Fup @ 2Hr Calcium 10.2 Total Bilirubin 0.6 Direct Bilirubin 0.2 AST 17 ALT 13 Alkaline Phosphatase 61 Total Protein 6.0 L Albumin 3.5 Lipase 18 Urine Color Urine Appearance Urine pH Ur Specific [place] Urine Protein Urine Glucose (UA) Urine Ketones Urine Blood Urine Nitrite Ur Leukocyte Esterase Stool Occult Blood COVID-19 (ERROL) [employer] Blood Type Antibody Screen Crossmatch 02/25/21 02/25/21 02/25/21 18:00 18:18 18:27 WBC RBC Hgb Hct MCV MCH MCHC RDW Plt Count MPV Immature Gran % (Auto) Neut % (Auto) Lymph % (Auto) [place] % (Auto) Eos % (Auto) Baso % (Auto) Lymph # (Auto) [place] # (Auto) Eos # (Auto) Baso # (Auto) Abs Immat Gran (auto) Absolute Neuts (auto) Absolute Nucleated RBC Nucleated RBC % (auto) PT 12.7 INR 1.1 Sodium Potassium Chloride Carbon Dioxide Anion Gap BUN Creatinine Estim Creat Clear Calc Estimated GFR Random Glucose Lactic Acid Lactic Acid Fup @ 2Hr Calcium Total Bilirubin Direct Bilirubin AST ALT Alkaline Phosphatase Total Protein Albumin Lipase Urine Color Urine Appearance Urine pH Ur Specific [place] Urine Protein Urine Glucose (UA) Urine Ketones Urine Blood Urine Nitrite Ur Leukocyte Esterase Stool Occult Blood POSITIVE COVID-19 (ERROL) [email or web address] Blood Type O Positive Antibody Screen NEGATIVE Crossmatch See Detail 02/25/21 02/25/21 02/25/21 20:22 20:23 20:23 WBC RBC Hgb 9.1 L Hct 23.8 L MCV MCH MCHC RDW Plt Count MPV Immature Gran % (Auto) Neut % (Auto) Lymph % (Auto) [place] % (Auto) Eos % (Auto) Baso % (Auto) Lymph # (Auto) [place] # (Auto) Eos # (Auto) Baso # (Auto) Abs Immat Gran (auto) Absolute Neuts (auto) Absolute Nucleated RBC Nucleated RBC % (auto) PT INR Sodium Potassium Chloride Carbon Dioxide Anion Gap BUN Creatinine Estim Creat Clear Calc Estimated GFR Random Glucose Lactic Acid 2.4 H* Lactic Acid Fup @ 2Hr Calcium Total Bilirubin Direct Bilirubin AST ALT Alkaline Phosphatase Total Protein Albumin Lipase Urine Color Urine Appearance Urine pH Ur Specific [place] Urine Protein Urine Glucose (UA) Urine Ketones Urine Blood Urine Nitrite Ur Leukocyte Esterase Stool Occult Blood COVID-19 (ERROL) Negative COVID-19 Clin Com See Note Blood Type Antibody Screen Crossmatch 02/25/21 02/25/21 02/26/21 20:34 23:11 05:32 WBC 8.3 RBC 2.14 L D Hgb 6.8 L* D Hct 19.4 L* MCV 90.7 MCH 31.8 MCHC 35.1 H RDW 12.7 Plt Count 244 D MPV 9.3 L Immature Gran % (Auto) 0.4 Neut % (Auto) 75.0 H Lymph % (Auto) 14.7 L [place] % (Auto) 9.4 Eos % (Auto) 0.1 Baso % (Auto) 0.4 Lymph # (Auto) 1.2 [place] # (Auto) 0.8 Eos # (Auto) 0.0 Baso # (Auto) 0.0 Abs Immat Gran (auto) 0.03 Absolute Neuts (auto) 6.2 Absolute Nucleated RBC 0.000 Nucleated RBC % (auto) 0.0 PT INR Sodium Potassium Chloride Carbon Dioxide Anion Gap BUN Creatinine Estim Creat Clear Calc Estimated GFR Random Glucose Lactic Acid Lactic Acid Fup @ 2Hr 1.2 Calcium Total Bilirubin Direct Bilirubin AST ALT Alkaline Phosphatase Total Protein Albumin Lipase Urine Color YELLOW Urine Appearance CLEAR Urine pH 5.5 Ur Specific [place] <= 1.005 Urine Protein NEG Urine Glucose (UA) NEG Urine Ketones NEG Urine Blood NEG Urine Nitrite NEG Ur Leukocyte Esterase NEG Stool Occult Blood COVID-19 (ERROL) COVID-19 Clin Com Blood Type Antibody Screen Crossmatch 02/26/21 05:32 WBC RBC Hgb Hct MCV MCH MCHC RDW Plt Count MPV Immature Gran % (Auto) Neut % (Auto) Lymph % (Auto) [place] % (Auto) Eos % (Auto) Baso % (Auto) Lymph # (Auto) [place] # (Auto) Eos # (Auto) Baso # (Auto) Abs Immat Gran (auto) Absolute Neuts (auto) Absolute Nucleated RBC Nucleated RBC % (auto) PT INR Sodium 138 Potassium 3.0 L Chloride 106 Carbon Dioxide 27 Anion Gap 8 L BUN 45 H Creatinine 0.57 Estim Creat Clear Calc 59.1 Estimated GFR > 60 Random Glucose 123 H Lactic Acid Lactic Acid Fup @ 2Hr Calcium 9.1 D Total Bilirubin Direct Bilirubin AST ALT Alkaline Phosphatase Total Protein Albumin Lipase Urine Color Urine Appearance Urine pH Ur Specific [place] Urine Protein Urine Glucose (UA) Urine Ketones Urine Blood Urine Nitrite Ur Leukocyte Esterase Stool Occult Blood COVID-19 (ERROL) COVID-19 Clin Com Blood Type Antibody Screen Crossmatch Airway Mallampati Class: II TM Dist: >3cm Neck ROM: Full Partial: Upper and Lower
--- NOTE | 2021-02-26 13:57 | PC.NURSE ---
Dr. Wang made aware of Hgb 6.8 and Hct 19.4 that were drawn this am pre RBC transfusions. No new labs ordered. Okay to proceed with procedure.
[2021-02-26] MEDS: Lactated Ringers 1,000 ML 100 ML IVCONT ×2 (14:09→16:07)
--- NOTE | 2021-02-26 14:18 | PM.EVENT ---
Event Note Date of Service: 02/26/21 Event Note: EGD nonbleeding 12 mm antral ulcer with clean base. bxs obtained from margin of ulcer cont ppi, no nsaids/etoh advance diet, follow hct f/u bx results
--- NOTE | 2021-02-26 14:20 | PM.OP ---
Brief Operative Note Date of Service: 02/26/21 Pre-op diagnosis: ugi bleed Post-op diagnosis: same (gastric ulcer) Procedure: egd Surgeon: Alfonzo Mary Anesthesia: MAC Was an Transportation Superintendent used for this Procedure?: No Estimated blood loss (mL): 2 Pathology: other (bx's gastric ulcer) Condition: stable Disposition: PACU
--- NOTE | 2021-02-26 15:15 | OP_ITS ---
SURGEON: Alfonzo Mary MD INDICATIONS: Upper GI bleeding. PREOPERATIVE DIAGNOSIS: POSTOPERATIVE DIAGNOSIS: PROCEDURE PERFORMED: Upper endoscopy with biopsy. ESTIMATED BLOOD LOSS: COMPLICATIONS: ANESTHESIA: ASSISTANTS: SPECIMENS: MEDICATIONS: Monitored anesthesia care. DESCRIPTION OF PROCEDURE: History and physical performed. The risks and benefits of the procedure were explained to the patient. Informed consent was obtained. The patient was placed in left lateral decubitus position. The Olympus video gastroscope was introduced into the esophagus, stomach, and duodenum. Examination was performed and the scope was removed. She tolerated the procedure well and was taken to recovery area in stable condition. FINDINGS: Esophagus: The esophagus was normal. There was no esophagitis. Stomach: The stomach showed antral gastritis with a 12 mm ulcer in the antrum with a clean base on the lesser curvature approximately 3 cm before the pylorus. There was no blood in the stomach. Duodenum: The bulb and second portion were normal. Biopsies were obtained from the margin of the ulcer. No therapy was performed. IMPRESSION: Gastric ulcer. RECOMMENDATIONS: 1. Continue proton pump inhibitor. 2. Avoid NSAIDs and alcohol. 3. Follow up the biopsy results. 4. Repeat endoscopy in 12 weeks to assess for healing. MD BEE Engel/VALERI / [id number]
--- NOTE | 2021-02-26 15:36 | CONS_ITS ---
DATE OF SERVICE: 02/26/2021 REFERRING PHYSICIAN: Sunil Shepard REASON FOR CONSULTATION: Upper GI bleeding. HISTORY OF PRESENT ILLNESS: The patient is a pleasant 85-year-old woman, who presented to the emergency room with black stool and coffee-grounds emesis. She states she was well until the day of admission. She had played cards with her sister the day before and had 2 glasses of wine. She went to bed, but woke up feeling nauseous, tired, and generally weak. She vomited coffee-ground materials at home and had black stools at home. She denies abdominal pain. She has no prior history of peptic ulcer disease. She denies chronic reflux symptoms. She has not had previous endoscopy. She does take a baby aspirin, but does not use regular doses of other nonsteroidals. She drinks alcohol 1 to 2 drinks once or twice per week. She does not smoke. In the emergency department, she was evaluated with laboratory testing, which showed a hematocrit of 27.1, this dropped to 19.4 this morning. She did have black tarry stools, but no further hematemesis. She was transfused 2 units of packed red blood cells and feels much better. PAST MEDICAL HISTORY: 1. Hypertension. 2. Elevated cholesterol. 3. Hysterectomy. 4. Hyperthyroidism. CURRENT MEDICATIONS: Her current medication list is reviewed in the chart. ALLERGIES: THERE ARE NONE REPORTED. FAMILY HISTORY: This is reviewed with the patient and is negative for GI malignancy. SOCIAL HISTORY: She does not smoke. Alcohol use is as above. REVIEW OF SYSTEMS: SKIN: No pruritus. HEENT: Negative. CARDIOPULMONARY: She denies shortness of breath or chest pain. GASTROINTESTINAL: As above. GENITOURINARY: Negative. NEUROPSYCHIATRIC: Negative. PHYSICAL EXAMINATION: GENERAL: Shows a pleasant female, lying in bed. VITAL SIGNS: Reviewed in the electronic medical record and are stable. SKIN: Anicteric. HEENT: Shows no scleral icterus. NECK: Without lymphadenopathy or thyromegaly. LUNGS: Clear. HEART: Shows a regular rate and rhythm. S1, S2. No murmur. ABDOMEN: Soft without focal masses or tenderness. Bowel sounds are present. No organomegaly is noted. EXTREMITIES: Without edema. LABORATORY DATA: Reviewed. IMPRESSION: Gastrointestinal bleeding. Her presentation appears consistent with an upper GI source. Differential diagnosis for this includes peptic ulcer disease, esophagitis, gastritis, AVMs, and malignancy. I discussed risks and benefits of upper endoscopy with her. She understands these and agrees to proceed. This will be arranged for later today. I would recommend continuing a proton pump inhibitor as you are doing and discontinuing NSAIDs and alcohol. Thanks for asking me to see her. I will follow her in the hospital with you. MD BEE Engel/VALERI / [id number]
[2021-02-26] MEDS: Pravastatin Sodium 80 MG TABLET PO (20:34)
[2021-02-27] VITALS: BP 134/62; PULSE 72; RESP 74; TEMP 36.2; O2SAT 98
[2021-02-27] MEDS: Lactated Ringers 1,000 ML 100 ML IVCONT (02:19)
[2021-02-27 04:00] VITALS: BP 142/74; PULSE 64; RESP 16; TEMP 36.7; O2SAT 97
[2021-02-27] MEDS: Pantoprazole Sodium 40 MG/10 ML VIAL IVPUSH (05:37)
[2021-02-27 05:55] LABS: Anion Gap 10 (12-20); Blood Urea Nitrogen 11 mg/dL (9-16); Calcium 8.9 mg/dL (8.4-10.2); Carbon Dioxide 27 mmol/L (22-29); Chloride 106 mmol/L (96-108); Creatinine Clr Calc Pharmacy 70.2; Estimated Glomerular Filt Rate > 60; Glucose Fasting 92 mg/dL (60-99); Potassium 2.7 mmol/L (3.3-5.1); Sodium 140 mmol/L (135-145)
[2021-02-27 06:04] LABS: Hematocrit 27.9 % (37.0-47.0); Mean Corpuscular HGB Conc 35.8 g/dl (31.0-35.0); Mean Corpuscular Hemoglobin 31.4 pg (27.0-33.0); Mean Corpuscular Volume 87.7 fL (80.0-98.0); Mean Platelet Volume 9.2 fL (9.4-12.3); Platelet Count 218 X10*3/uL (160-400); Red Blood Count 3.18 X10*6/uL (4.20-5.50); Red Cell Distribution Width 13.6 % (11.0-16.0); White Blood Count 6.8 X10*3/uL (4.8-10.8)
[2021-02-27 08:00] VITALS: BP 118/57; PULSE 98; RESP 16; TEMP 36.5; O2SAT 99
[2021-02-27] MEDS: 0.9 % Sodium Chloride Flush 3 ML SYRINGE IVFLUSH (08:00)
[2021-02-27] MEDS: Metoprolol Succinate ER 12.5 MG HALFTAB.ER.24H PO (08:51)
[2021-02-27] MEDS: methIMAzole 5 MG TABLET PO (08:52)
[2021-02-27] MEDS: Potassium Chloride ER 20 MEQ TAB.ER.PRT 40 MEQ PO (08:52)
--- NOTE | 2021-02-27 09:41 | PM.DS ---
DS: Providers Provider Date of Service: 02/27/21 Date of admission: 02/25/21 22:23 Primary care physician: Sunitha Matt MD Consults: 02/25/21 22:26 Consult to Gastroenterology Routine Consulting Provider: Alfonzo Mary Reason for consultation: GI bleed DS: Diagnosis Discharge Diagnosis (1) Acute GI bleeding: Status: Acute DS: Summary Hospital Course Hospital Course: Patient was admitted for acute blood loss anemia due to upper GI bleeding complicated by hypotension and lactic acidosis. She was treated with IV Protonix. She was transfused 2 units PRBC. Her aspirin was held. She was seen by Gastroenterology who performed EGD which showed nonbleeding gastric ulcer. Patient's blood pressure stabilized, her hemoglobin improved appropriately after transfusion, it is 10 on discharge. She is feeling much better will be discharged home. Her amlodipine will be held as well as her aspirin, she will be started on omeprazole and will follow up with Gastroenterology for biopsy results and repeat EGD in about 12 weeks. Time Spent with Patient Time attestation: Total time spent providing and/or coordinating discharge services: Discharge coordination time: Greater than 30 minutes Quality: Stroke Does the patient have a stroke diagnosis?: No Physical Exam Vital Signs: Vital Signs: Last Vital Signs Temp 97.7 F 02/27/21 08:00 Pulse 98 02/27/21 08:00 Resp 16 02/27/21 08:00 BP 118/57 L 02/27/21 08:00 Pulse Ox 99 02/27/21 08:00 Body Mass Index 23.8 General: AO X 3, no acute distress Resp: CTA bilateral, no accessory muscles used CVS: S1,S2,RRR GI: soft, non tender, non distended Neuro: motor grossly intact, alert Psych: appropriate affect, appropriate insight DS: Data Data Completed and Pending Pending studies at discharge: Pending at discharge 02/26/21 14:09 Surgical [PTH] Routine Labs on day of discharge: Laboratory Results - last 24 hr 02/25/21 02/27/21 02/27/21 18:18 05:28 05:28 WBC 6.8 RBC 3.18 L D Hgb 10.0 L D Hct 27.9 L D MCV 87.7 MCH 31.4 MCHC 35.8 H RDW 13.6 Plt Count 218 MPV 9.2 L Absolute Nucleated RBC 0.000 Nucleated RBC % (auto) 0.0 Sodium 140 Potassium 2.7 L Chloride 106 Carbon Dioxide 27 Anion Gap 10 L BUN 11 D Creatinine 0.48 L Estim Creat Clear Calc 70.2 Estimated GFR > 60 Fasting Glucose 92 Calcium 8.9 Crossmatch See Detail Preliminary micro results at discharge 02/25/21 17:59 Blood Culture - Preliminary Blood - Venous No growth after 24 hours. 02/25/21 18:18 Blood Culture - Preliminary Blood - Venous No growth after 24 hours. Discharge Plan Discharge Patient Disposition: Home, Self-Care Discharge Diagnosis: gi bleed Referrals: Alfonzo Mary [Physician] - 1 Week Po,Sunitha Mora MD [Primary Care Provider] - 1 Week Discharge Medications: New omeprazole 40 mg capsule,delayed release(DR/EC) 40 mg PO BID Qty: 60 RF: 0 Continued metoprolol succinate 200 mg tablet extended release 24 hr 200 mg PO DAILY RF: 0 losartan-hydrochlorothiazide 100-25 mg tablet 1 tab PO DAILY RF: 0 pravastatin 80 mg tablet 1 tab PO BEDTIME RF: 0 methimazole 5 mg tablet 1 tab PO DAILY RF: 0 Discontinued amlodipine 5 mg tablet 1 tab PO DAILY RF: 0 aspirin 81 mg Tablet,Delayed Release (Dr/Ec) 81 mg PO Q7D RF: 0 Discharge Orders: Discharge Order (Routine); Ordered 02/27/21 Ordered By: Ludwig Randall Diet: advance to usual diet Activity on Discharge: As tolerated Stand Alone Forms: Patient Portal Discharge page Care Plan Goals: Recovery Health Concerns: Stomach ulcer Plan of Treatment: Start omeprazole, follow-up with Gastroenterology, repeat EGD in 12 weeks, will hold off on amlodipine because her blood pressure has been borderline. Hold aspirin, avoid alcohol Assessment: see above
--- NOTE | 2021-02-27 10:00 | MHC.CM.PN ---
PATIENT IS DISCHARGED HOME - SELF CARE FAMILY TO TRANSPORT
[2021-02-27] MEDS: Potassium Chloride ER 20 MEQ TAB.ER.PRT PO (10:01)
--- NOTE | 2021-02-28 19:46 | HO.POSTANES ---
Post Anesthesia Evaluation Post Anesthesia Evaluation Anesthesia: Monitored Mental Status: Awake Pain Control: Satisfactory Nausea/Vomiting: None Hydration: Adequate Anesthesia-Related Issues: No Anes. Related Issues
== END 2021-02-27 11:45 | disposition home or self-care (01) | DRG 378 ==
LOC: HO.ED 19:27 → HO.EDOVER 22:56 → HO.S3 02-26 15:16
PROVIDERS: Internal Medicine Gastroenterology; Physician Assistant; Admitting Provider Hospitalist; Emergency Provider Internal Medicine; PCP Internal Medicine; Visit Provider Internal Medicine
PROC: 0DJ08ZZ Inspection of Upper Intestinal Tract, Via Natural or Artificial Opening Endoscopic (ICD-10-PCS; CPT 43235; principal; 2021-02-26 14:00)
DX: K29.71 Gastritis, unspecified, with bleeding (principal); E87.2 Acidosis; D62 Acute posthemorrhagic anemia; K25.4 Chronic or unspecified gastric ulcer with hemorrhage; I10 Essential (primary) hypertension; E05.90 Thyrotoxicosis, unspecified without thyrotoxic crisis or storm; E78.5 Hyperlipidemia, unspecified; I95.9 Hypotension, unspecified; E86.0 Dehydration; Z72.89 Other problems related to lifestyle; Z20.822 Contact with and (suspected) exposure to COVID-19; Z87.891 Personal history of nicotine dependence; Z79.899 Other long term (current) drug therapy
CPT/HCPCS: 36415; 71045; 74177; 80048; 80076; 81003; 82272; 83605; 83690; 85014; 85018; 85025; 85027; 85610; 86850; 86900; 86901; 86923; 87040; 87635; 88305; 88342; 93005; 96361; 96365; 96375; 99285; 99291; J1940; J2370; J2405; J2543; P9016; Q9967

== ENCOUNTER 2021-03-08 15:32 | Outpatient (REF) | payer MEDICARE, OTHER, SELFPAY ==
[2021-03-08 16:43] LABS: Hemoglobin 12.2 g/dl (12.0-16.0); Mean Corpuscular HGB Conc 33.9 g/dl (31.0-35.0); Mean Corpuscular Volume 91.4 fL (80.0-98.0); Mean Platelet Volume 9.9 fL (9.4-12.3); Platelet Count 507 X10*3/uL (160-400); Red Blood Count 3.94 X10*6/uL (4.20-5.50); Red Cell Distribution Width 13.2 % (11.0-16.0); White Blood Count 8.1 X10*3/uL (4.8-10.8)
[2021-03-08 16:45] LABS: Anion Gap 14 (12-20); Blood Urea Nitrogen 7 mg/dL (9-16); Calcium 10.9 mg/dL (8.4-10.2); Carbon Dioxide 28 mmol/L (22-29); Chloride 98 mmol/L (96-108); Estimated Glomerular Filt Rate > 60; Glucose Random 99 mg/dL (60-115); Sodium 136 mmol/L (135-145)
== END 2021-03-08 15:33 | disposition home or self-care (01) ==
LOC: HO.LAB 15:32
PROVIDERS: PCP Internal Medicine; Visit Provider Nurse Practitioner Family
DX: K25.0 Acute gastric ulcer with hemorrhage (principal)
CPT/HCPCS: 36415; 80048; 85027

== ENCOUNTER 2021-03-22 07:52 | Outpatient (REF) | payer MEDICARE, OTHER, SELFPAY ==
[2021-03-22 08:40] LABS: Platelet Count 379 X10*3/uL (160-400)
== END 2021-03-22 07:53 | disposition home or self-care (01) ==
LOC: HO.LAB 07:52
PROVIDERS: PCP Internal Medicine; Visit Provider Nurse Practitioner Family
DX: R79.89 Other specified abnormal findings of blood chemistry (principal)
CPT/HCPCS: 36415; 85049

== ENCOUNTER 2021-06-08 06:16 | Day surgery (SDC) | payer MEDICARE, OTHER, SELFPAY ==
[2021-05-31 15:12] VITALS: BMI 23.2
--- NOTE | 2021-06-04 12:40 | P.CONAN_ITS ---
Documented by User: Merry Mason NP 06/04/21 12:41 HPI - Anesthesia Eval Consult details Narrative: 85yo F for Upper Endoscopy PMFSH Active Problems Active Problems: All Active Problems (Updated 05/31/21 @ 15:16 by Keri Blanchard RN) Acute GI bleeding (Acute) Hypovolemia (Acute) Gastroenteritis (Acute) Gastric ulcer (Acute) High platelet count (Acute) Hyperthyroidism (Acute) Osteoarthritis (Acute) Anxiety, generalized (Acute) High cholesterol (Acute) Hypertension (Acute) Past Medical History Medical History Arthritis COVID-19 vaccine series completed Gastric ulcer High cholesterol History of blood transfusion Hx of flexible sigmoidoscopy Hypertension Hyperthyroidism Surgical History Surgical History History of endoscopy History of tonsillectomy Hx of cataract extraction S/P JEFF-BSO Social History Social History Household Members: Spouse Household Members Other:: lives w/ in 2 family home-daughter lives on 1st floor Housing: House Are you a primary hospice home care coordinator to a significant other at home: No Do you presently have visiting nurse or other home services: No Alcohol intake: current Alcohol intake frequency: does not drink Patient Tobacco Use Status: Former Tobacco user Quit Date: Tobacco use type: Cigarette Years Smoked: 10 e-Cigarette/Vaping Use: Never Used Second Hand Smoke Exposure: No Use of substances other than those prescribed or required for medical reasons: No Have you been hit, kicked, punched, or otherwise hurt by someone within the past year? If so, by whom?: No Are you DNR?: No Advance Directives Information Provided: Yes (brochure mailed) Advance Directives on File: No Recently lost weight without trying: No Eating poorly because of decreased appetite: No Nutrition Risks: Surgical patient >75years Poor oral hygiene: No (upper & lower partials) service: No Current occupational status: retired Cognitive needs: Yes (cane) Hearing needs: No Vision needs: Yes (Reading glasses) Meds Allergies Allergy/AdvReac Type Severity Reaction Status Date / Time No Known Allergies Allergy Verified 05/05/21 10:12 Home Medications Medication Instructions Recorded Confirmed Last Taken Type pravastatin 80 mg tablet 1 tab PO BEDTIME 02/25/21 05/31/21 02/24/21 History cholecalciferol (vitamin D3) 25 25 mcg PO DAILY 05/05/21 05/31/21 Unknown History mcg (1,000 unit) capsule glucosamine-chondroitin 250 mg-200 2 tab PO DAILY tab 05/05/21 05/31/21 Unknown History mg tablet (Osteo Bi-Flex) melatonin 5 mg tablet 10 mg PO BEDTIME 05/31/21 05/31/21 Unknown History Exam Exam Date and Time: June 04, 2021 1240 Height,Weight and Vital Signs: Height 5 ft 2 in Weight 57.606 kg Pertinent Lab Results Pertinent Lab Results: Laboratory Tests 03/08/21 03/08/21 03/22/21 15:41 15:41 08:14 WBC 8.1 Hgb 12.2 D Hct 36.0 L D Plt Count 379 D Sodium 136 Potassium 4.0 D Chloride 98 Carbon Dioxide 28 BUN 7 L Creatinine 0.68 Narrative Narrative: EKG 02/2021 Vent. Rate : 119 BPM ? ? Atrial Rate : 119 BPM ?? P-R Int : 198 ms? QRS Dur : 080 ms ? ? QT Int : 344 ms ? ? ? P-R-T Axes : 077 009 013 degrees ?? QTc Int : 483 ms ? Sinus tachycardia Nonspecific ST and T wave abnormality Abnormal ECG When compared with ECG of 21-NOV-2012 16:13, Vent. rate has increased BY? [address] now depressed in Lateral leads Inferior leads Assessment and Plan Assessment Anesthesia Assessment: Chart Reviewed Documented by User: Ifrah Wang MD 06/08/21 07:24 [facility] Past Medical History Medical History Arthritis COVID-19 vaccine series completed Gastric ulcer High cholesterol History of blood transfusion Hx of flexible sigmoidoscopy Hypertension Hyperthyroidism Functional capacity: independent ambulation Patient : No Family History Family history of problems with anesthesia: No Surgical History Surgical History History of endoscopy History of tonsillectomy Hx of cataract extraction S/P JEFF-BSO History of Problems with Anesthesia: No Social History Social History Household Members: Spouse Household Members Other:: lives w/ in 2 family home-daughter lives on 1st floor Housing: House Are you a primary hospice home care coordinator to a significant other at home: No Do you presently have visiting nurse or other home services: No Alcohol intake: current Alcohol intake frequency: does not drink Patient Tobacco Use Status: Former Tobacco user Quit Date: Tobacco use type: Cigarette Years Smoked: 10 e-Cigarette/Vaping Use: Never Used Second Hand Smoke Exposure: No Use of substances other than those prescribed or required for medical reasons: No Have you been hit, kicked, punched, or otherwise hurt by someone within the past year? If so, by whom?: No Are you DNR?: No Advance Directives Information Provided: Yes (brochure mailed) Advance Directives on File: No Recently lost weight without trying: No Eating poorly because of decreased appetite: No Nutrition Risks: Surgical patient >75years Poor oral hygiene: No (upper & lower partials) service: No Current occupational status: retired Cognitive needs: Yes (cane) Hearing needs: No Vision needs: Yes (Reading glasses) Meds Allergies Allergy/AdvReac Type Severity Reaction Status Date / Time No Known Allergies Allergy Verified 05/05/21 10:12 Home Medications Medication Instructions Recorded Confirmed Last Taken Type pravastatin 80 mg tablet 1 tab PO BEDTIME 02/25/21 05/31/21 02/24/21 History cholecalciferol (vitamin D3) 25 25 mcg PO DAILY 05/05/21 05/31/21 Unknown History mcg (1,000 unit) capsule glucosamine-chondroitin 250 mg-200 2 tab PO DAILY tab 05/05/21 05/31/21 Unknown History mg tablet (Osteo Bi-Flex) melatonin 5 mg tablet 10 mg PO BEDTIME 05/31/21 05/31/21 Unknown History Exam Airway Mallampati Class: II TM Dist: >3cm Neck ROM: Full Heart: RRR Lungs: CTA Assessment and Plan Final Anesthetic Review Family History of Problems with Anesthesia: No History of Problems with Anesthesia: No Final Preanesthetic Review: No Changes in Pt Med Stat, Meds/Allgs Chart Reviewed, Consent Obtained/Reviewed and Anes Risks/Benef Reviewed Patient Risk: Low Procedure Risk: Low Anesthetic Plan Anesthetic Plan: MAC: Disposition: Standard PACU
[2021-06-08 06:28] VITALS: BP 157/85; PULSE 79; RESP 16; TEMP 36.8; O2SAT 96
[2021-06-08] MEDS: Lactated Ringers 1,000 ML 100 ML IVCONT (06:42)
--- NOTE | 2021-06-08 07:19 | MHC.SHP ---
Pre-Procedural Eval Section A Date of Service: 06/08/21 Section B Chief Complaint: ulcer Details of Present Illness: See H&P no changes Relevant Family History (Specify if Yes): No Relevant Social History: None Present Medications: see Short Stay Collaborative assessment Medical History: No relevant PMH Allergies: Allergies Allergy/AdvReac Type Severity Reaction Status Date / Time No Known Allergies Allergy Verified 05/05/21 10:12 Review of Systems Sugical H&P ROS: Negative: Constitution, Cardiovascular, Respiratory, Neurological, Psychiatric, Hem-Onc, Allergic/Immunologic, Gastrointestinal, Genitourinary, Musculoskeletal, Integumentary, Endocrine and Eyes/Ears/Nose/Throat Exam Surgical H&P Exam: Normal: HEENT, Normal: Heart, Normal: Lungs, Normal: Extremities, Normal: Abdomen, Normal: Skin and Normal: Neurological Plan Diagnosis/Plan: Unchanged I have reviewed the history and physical and performed a pertinent physical examination on my patient. No changes have occurred unless specified.
--- NOTE | 2021-06-08 07:43 | PM.OP ---
Brief Operative Note Date of Service: 06/08/21 Pre-op diagnosis: gastric ulcer Post-op diagnosis: same (normal egd) Procedure: egd Surgeon: Alfonzo Mary Anesthesia: MAC Was an Traveling Nurse used for this Procedure?: No Estimated blood loss (mL): 2 Pathology: other (antral biopsies)
[2021-06-08 07:48] VITALS: BP 92/59; PULSE 59; RESP 16; TEMP 36.4; O2SAT 98
--- NOTE | 2021-06-08 08:00 | OP_ITS ---
SURGEON: Alfonzo Mary MD INDICATIONS: Gastric ulcer with history of upper gastrointestinal bleeding. PREOPERATIVE DIAGNOSIS: POSTOPERATIVE DIAGNOSIS: PROCEDURE PERFORMED: ESTIMATED BLOOD LOSS: COMPLICATIONS: ANESTHESIA: ASSISTANTS: SPECIMENS: PROCEDURE: Upper endoscopy with biopsy. MEDICATIONS: Monitored anesthesia care. DESCRIPTION OF PROCEDURE: History and physical performed. The risks and benefits of the procedure were explained to the patient. Informed consent was obtained. The patient was placed in the left lateral decubitus position. The Olympus video gastroscope was introduced into the esophagus, stomach, and duodenum. Examination was performed. The scope was removed. She tolerated the procedure well and was taken to recovery room in stable condition. FINDINGS: Esophagus: The esophagus was normal. There was no esophagitis. Stomach: The stomach showed no evidence of masses or polyps. The site where the previous ulcer had been did show some slight scarring, but was healed completely. Biopsies were obtained from the antrum at the ulcer site. Duodenum: The bulb and second portion were normal. IMPRESSION: Normal upper endoscopy. RECOMMENDATION: Follow up the biopsy results. MD BEE Engel/MODL / [id number]
[2021-06-08 08:02] VITALS: BP 109/58; PULSE 65; RESP 18; TEMP 36.2; O2SAT 99
--- NOTE | 2021-06-08 14:06 | HO.POSTANES ---
Post Anesthesia Evaluation Post Anesthesia Evaluation Vital Signs: Vital Signs Temp Pulse Resp BP Pulse Ox 06/08/21 08:02 97.1 F 65 18 109/58 L 99 06/08/21 07:48 97.6 F 59 16 92/59 L 98 06/08/21 06:28 98.3 F 79 16 157/85 H 96 Anesthesia: Monitored Mental Status: Awake Pain Control: Satisfactory Nausea/Vomiting: None Hydration: Adequate Anesthesia-Related Issues: No Anes. Related Issues
== END 2021-06-08 09:28 | disposition home or self-care (01) ==
PROVIDERS: PCP Internal Medicine; Visit Provider Internal Medicine Gastroenterology
PROC: 0DJ08ZZ Inspection of Upper Intestinal Tract, Via Natural or Artificial Opening Endoscopic (ICD-10-PCS; CPT 43235; principal; 2021-06-08 07:30)
DX: K31.9 Disease of stomach and duodenum, unspecified (principal); I10 Essential (primary) hypertension; E78.00 Pure hypercholesterolemia, unspecified; E05.90 Thyrotoxicosis, unspecified without thyrotoxic crisis or storm; Z79.82 Long term (current) use of aspirin; Z79.899 Other long term (current) drug therapy; Z87.891 Personal history of nicotine dependence
CPT/HCPCS: 43239; 88305; 88342

== ENCOUNTER 2021-06-28 07:45 | Outpatient (REF) | payer MEDICARE, OTHER, SELFPAY ==
[2021-06-28 08:00] LABS: MANUAL DIFF FLAG NO
[2021-06-28 08:40] LABS: Basophils Absolute Auto 0.1 X10*3/uL (0.0-0.2); Basophils Percent Auto 0.8 % (0-2); Eosinophils Absolute Auto 0.2 X10*3/uL (0.0-0.4); Hematocrit 34.6 % (37.0-47.0); Hemoglobin 12.9 g/dl (12.0-16.0); Imm Gran Abs Auto 0.01 X10*3/uL (0.00-0.03); Imm Gran Pct Auto 0.2 % (0.0-0.4); Immature Retic Fraction 5.9 % (3.0-15.9); Lymphocytes Absolute Auto 1.8 X10*3/uL (1.2-4.9); Lymphocytes Percent Auto 29.9 % (20-40); Mean Corpuscular HGB Conc 37.3 g/dl (31.0-35.0); Mean Corpuscular Volume 91.3 fL (80.0-98.0); Mean Platelet Volume 9.6 fL (9.4-12.3); Monocytes Absolute Auto 0.7 X10*3/uL (0.1-1.2); Monocytes Percent Auto 10.7 % (2-11); Neutrophils Absolute Auto 3.4 x10*3/uL (2.0-8.3); Neutrophils Percent Auto 55.4 % (45-73); Platelet Count 416 X10*3/uL (160-400); Red Blood Count 3.79 X10*6/uL (4.20-5.50); Red Cell Distribution Width 14.6 % (11.0-16.0); Retic HGB Equivalent 33.4 pg (30.0-35.0); Reticulocyte Percent 1.5 % (0.5-1.8); Reticulocytes Absolute 0.055 X10*6/uL (0.026-0.095); White Blood Count 6.1 X10*3/uL (4.8-10.8)
[2021-06-28 09:30] LABS: Alanine Aminotransferase 14 U/L (0-31); Albumin Level 4.1 g/dL (3.5-5.0); Alkaline Phosphatase 87 U/L (39-117); Anion Gap 13 (12-20); Aspartate Amino Transferase 24 U/L (5-31); Bilirubin Total 0.6 mg/dL (0.0-1.0); Blood Urea Nitrogen 8 mg/dL (9-16); Carbon Dioxide 30 mmol/L (22-29); Chloride 96 mmol/L (96-108); Cholesterol 190 mg/dL; Estimated Glomerular Filt Rate > 60; Glucose Random 113 mg/dL (60-115); HDL Cholesterol 67 mg/dL; Iron 111 mcg/dL (30-160); LDL Cholesterol Calculated 104 mg/dl; Percent Iron Saturation 29 % (15-50); Potassium 4.1 mmol/L (3.3-5.1); Sodium 135 mmol/L (135-145); Total Iron Binding Capacity 384 mcg/dL (228-428); Total Protein 7.3 g/dL (6.5-8.0); Triglycerides 99 mg/dL; Unsaturated Iron Binding 273 ug/dL
[2021-06-28 09:41] LABS: Calcium 11.2 mg/dL (8.4-10.2)
[2021-06-28 09:47] LABS: Folate 3.5 ng/mL (> or = 4.0); Vitamin B12 283 pg/mL (200-900)
[2021-06-28 09:50] LABS: Ferritin 72 ng/mL (10-250); Free T4 (Free Thyroxine) 1.09 ng/dL (0.71-1.85); Thyroid Stimulating Hormone 3.17 uIU/mL (0.32-4.0); Vitamin D 25-OH Total 34.5 ng/mL (>30)
== END 2021-06-28 07:46 | disposition home or self-care (01) ==
LOC: HO.LAB 07:45
PROVIDERS: PCP Internal Medicine; Visit Provider Internal Medicine
DX: I10 Essential (primary) hypertension (principal); E78.00 Pure hypercholesterolemia, unspecified
CPT/HCPCS: 36415; 80053; 80061; 82306; 82607; 82728; 82746; 83540; 84439; 84443; 85025; 85045

== ENCOUNTER 2021-06-29 12:19 | Outpatient (REF) | payer MEDICARE, OTHER, SELFPAY ==
[2021-06-30 14:21] LABS: Calcium (PTHI) 10.5 mg/dL (8.6-10.4); PTHI 121 pg/mL (16-77)
[2021-06-30 14:37] LABS: Calcium, Ionized 5.4 mg/dL (4.8-5.6)
== END 2021-06-29 12:20 | disposition home or self-care (01) ==
LOC: HO.LAB 12:19
PROVIDERS: PCP Internal Medicine; Visit Provider Internal Medicine
DX: E83.52 Hypercalcemia (principal)
CPT/HCPCS: 36415; 82330; 83970

== ENCOUNTER → 2021-07-28 08:48 | Outpatient (BNVA) | payer MEDICARE, OTHER, SELFPAY | PROVIDERS: PCP Internal Medicine; Visit Provider Internal Medicine Endocrinology, Diabetes & Metabolism | DX: E83.52 Hypercalcemia (principal); E05.90 Thyrotoxicosis, unspecified without thyrotoxic crisis or storm | CPT/HCPCS: 99202 ==

== ENCOUNTER 2021-08-23 07:09 | Outpatient (REF) | payer MEDICARE, OTHER, SELFPAY ==
[2021-08-23 08:05] LABS: Albumin Level 3.9 g/dL (3.5-5.0); Calcium 10.7 mg/dL (8.4-10.2)
[2021-08-24 12:42] LABS: Calcium (PTHI) 10.4 mg/dL (8.6-10.4); PTHI 102 pg/mL (16-77)
== END 2021-08-23 07:10 | disposition home or self-care (01) ==
LOC: HO.LAB 07:09
PROVIDERS: Internal Medicine Endocrinology, Diabetes & Metabolism; Absent Provider Internal Medicine; PCP Internal Medicine; Visit Provider Physical Medicine & Rehabilitation
DX: E83.52 Hypercalcemia (principal)
CPT/HCPCS: 36415; 82040; 82310; 83970

== ENCOUNTER 2021-09-27 07:13 | Outpatient (REF) | payer MEDICARE, OTHER, SELFPAY ==
[2021-09-27 07:32] LABS: MANUAL DIFF FLAG NO
[2021-09-27 08:16] LABS: Basophils Absolute Auto 0.1 X10*3/uL (0.0-0.2); Basophils Percent Auto 1.2 % (0-2); Eosinophils Absolute Auto 0.2 X10*3/uL (0.0-0.4); Eosinophils Percent Auto 3.2 % (0-4); Hematocrit 36.2 % (37.0-47.0); Hemoglobin 13.4 g/dl (12.0-16.0); Imm Gran Abs Auto 0.02 X10*3/uL (0.00-0.03); Imm Gran Pct Auto 0.4 % (0.0-0.4); Lymphocytes Absolute Auto 1.1 X10*3/uL (1.2-4.9); Lymphocytes Percent Auto 22.8 % (20-40); Mean Corpuscular Hemoglobin 34.2 pg (27.0-33.0); Mean Corpuscular Volume 92.3 fL (80.0-98.0); Mean Platelet Volume 9.9 fL (9.4-12.3); Monocytes Absolute Auto 0.5 X10*3/uL (0.1-1.2); Monocytes Percent Auto 10.8 % (2-11); Neutrophils Absolute Auto 3.1 x10*3/uL (2.0-8.3); Neutrophils Percent Auto 61.6 % (45-73); Platelet Count 357 X10*3/uL (160-400); Red Blood Count 3.92 X10*6/uL (4.20-5.50)
[2021-09-27 08:29] LABS: Alanine Aminotransferase 11 U/L (0-31); Albumin Level 4.2 g/dL (3.5-5.0); Alkaline Phosphatase 90 U/L (39-117); Anion Gap 11 (12-20); Aspartate Amino Transferase 17 U/L (5-31); Bilirubin Total 0.9 mg/dL (0.0-1.0); Blood Urea Nitrogen 8 mg/dL (9-16); Calcium 10.7 mg/dL (8.4-10.2); Carbon Dioxide 28 mmol/L (22-29); Chloride 101 mmol/L (96-108); Estimated Glomerular Filt Rate > 60; Glucose Random 118 mg/dL (60-115); Potassium 4.1 mmol/L (3.3-5.1); Sodium 136 mmol/L (135-145); Total Protein 7.2 g/dL (6.5-8.0)
[2021-09-27 08:42] LABS: Vitamin D 25-OH Total 36.2 ng/mL (>30)
[2021-09-27 08:47] LABS: Thyroid Stimulating Hormone 0.98 uIU/mL (0.32-4.0)
[2021-09-27 09:50] LABS: Folate > 20.0 ng/mL (> or = 4.0); Vitamin B12 603 pg/mL (200-900)
[2021-09-28 14:16] LABS: PTHI 118 pg/mL (16-77)
== END 2021-09-27 07:14 | disposition home or self-care (01) ==
LOC: HO.LAB 07:13
PROVIDERS: Absent Provider Internal Medicine Endocrinology, Diabetes & Metabolism; PCP Internal Medicine; Visit Provider Internal Medicine
DX: E21.3 Hyperparathyroidism, unspecified (principal); R79.89 Other specified abnormal findings of blood chemistry; E05.90 Thyrotoxicosis, unspecified without thyrotoxic crisis or storm
CPT/HCPCS: 36415; 80053; 82306; 82607; 82746; 83970; 84443; 85025

== ENCOUNTER 2021-10-08 14:12 | Outpatient (REF) | payer MEDICARE, OTHER, SELFPAY ==
--- NOTE | ~2021-10-08 | MM_ITS ---
EXAMINATION: BONE DENSITOMETRY CLINICAL INDICATION: Hyperparathyroidism. COMPARISON: Previous BD dated 08/03/2012 and baseline BD dated 03/04/2005. TECHNIQUE: Using a [employer] DXA System (software version: 13.1) manufactured by [employer], dual-energy x-ray absorptiometry was performed of the lumbar spine, left hip, and left forearm radius 33%. The images are of good technical quality. Summary results are attached. FINDINGS: AP SPINE L1-L4: Current: BMD 1.192 g/cm2, Z-score 2.2, T-score 0.1, normal, 0.7% decrease from previous, 7.4% increase from baseline (<5% change is not significant). Prior: BMD 1.200 g/cm2. Baseline: BMD 1.110 g/cm2. LEFT FEMUR, NECK: Current: BMD 0.587 g/cm2, Z-score -0.8, T-score -3.2, osteoporosis. Prior: BMD 0.628 g/cm2. Baseline: BMD 0.703 g/cm2. LEFT FEMUR, TOTAL: Current: BMD 0.537 g/cm2, Z-score -1.4, T-score -3.7, osteoporosis, 18.9% decrease from previous, 26.1% decrease from baseline (<5% change is not significant). Prior: BMD 0.662 g/cm2. Baseline: BMD 0.727 g/cm2. LEFT FOREARM RADIUS 33%: BMD 0.513 g/cm2, Z-score -1.1, T-score -4.1, osteoporosis. IDENTIFIED RISK FACTORS: Early menopause, height loss, history of fracture (adult), bilateral oophorectomy, hyperparathyroidism, hysterectomy, secondary osteoporosis. HISTORY OF FRACTURE: Spine. MEDICATIONS: Calcium, vitamin D. MM/XR DEXA appendicular skeleton IMPRESSION: 1. DIAGNOSIS: Severe osteoporosis based on the lowest T-score value of -4.1 in the forearm radius 33% and history of fracture of spine applying World Health Organization criteria. 2. 10-YEAR FRACTURE RISK PREDICTION, FRAX: Major osteoporotic fracture (clinical spine, forearm, hip or shoulder) 27.4%. Hip fracture 12.1%. 3. Treatment Recommendations: NOF guidelines recommend consideration for treatment in postmenopausal women and men age 50 and older presenting with the following: -A hip or vertebral (clinical or morphometric) fracture. -T-score less than or equal to -2.5 at the femoral neck or spine after appropriate evaluation to exclude secondary causes. -Low bone mass at the hip or spine and a 10-year fracture probability by FRAX of greater than or equal to 3% for hip fracture or greater than or equal to 20% for major osteoporotic fracture based on the [place] adapted WHO algorithm. 4. Other Recommendations: All treatment decisions require clinical judgment and consideration of individual patient factors, including patient preferences, comorbidities, previous drug use, risk factors not captured in the FRAX model (e.g. frailty, falls, vitamin D deficiency, increased bone turnover, interval significant decline in bone density) and possible under or overestimation of fracture risk by FRAX. Additional medical evaluation for secondary cause of low bone mineral density may be appropriate. FUTURE SCAN RECOMMENDATION: People with diagnosed cases of osteoporosis or at high risk for fracture should have regular bone mineral density tests. For patients eligible for Medicare, routine testing is allowed once every 2 years. The testing frequency can be increased to one year for patients who have rapidly progressing disease, those who are receiving or discontinuing medical therapy to restore bone mass, or have additional risk factors.
== END 2021-10-08 14:13 | disposition home or self-care (01) ==
LOC: HO.MAMMO 14:12
PROVIDERS: PCP Internal Medicine; Visit Provider Internal Medicine Endocrinology, Diabetes & Metabolism
DX: Z13.820 Encounter for screening for osteoporosis (principal); E21.3 Hyperparathyroidism, unspecified; Z78.0 Asymptomatic menopausal state; M81.0 Age-related osteoporosis without current pathological fracture
CPT/HCPCS: 77081

== ENCOUNTER 2021-10-14 07:36 | Outpatient (REF) | payer MEDICARE, OTHER, SELFPAY ==
[2021-10-14 09:35] LABS: Albumin Level 4.5 g/dL (3.5-5.0); Calcium 10.5 mg/dL (8.4-10.2); Estimated Glomerular Filt Rate > 60
[2021-10-14 11:23] LABS: Total Volume 24 Hour Urine 1650 mL
[2021-10-14 11:59] LABS: Creatinine, 24Hr Urine 0.6 G/Day (1.0-2.0); Creatinine, mg/dL 37.14
[2021-10-16 17:56] LABS: Calcium, 24 Hr Urine 274 mg/24 h; Calcium/Creatinine Ratio 405 mg/g creat (30-275); Creatinine 24Hr Urine 0.68 g/24 h (0.50-2.15)
== END 2021-10-14 07:37 | disposition home or self-care (01) ==
LOC: HO.LAB 07:36
PROVIDERS: PCP Internal Medicine; Visit Provider Internal Medicine Endocrinology, Diabetes & Metabolism
DX: E21.3 Hyperparathyroidism, unspecified (principal)
CPT/HCPCS: 36415; 82040; 82310; 82340; 82565; 82570

== ENCOUNTER → 2021-11-04 09:39 | Outpatient (BNVA) | payer MEDICARE, OTHER, SELFPAY | PROVIDERS: PCP Internal Medicine; Visit Provider Internal Medicine Endocrinology, Diabetes & Metabolism | DX: E21.3 Hyperparathyroidism, unspecified (principal); M81.0 Age-related osteoporosis without current pathological fracture; R82.994 Hypercalciuria; Z79.899 Other long term (current) drug therapy | CPT/HCPCS: 99212 ==

== ENCOUNTER 2022-01-14 12:31 | Outpatient (REF) | payer MEDICARE, OTHER, SELFPAY ==
[2022-01-14 13:51] LABS: Calcium 10.9 mg/dL (8.4-10.2)
== END 2022-01-14 12:32 | disposition home or self-care (01) ==
LOC: HO.LAB 12:31
PROVIDERS: PCP Internal Medicine; Visit Provider Internal Medicine Endocrinology, Diabetes & Metabolism
DX: E21.3 Hyperparathyroidism, unspecified (principal)
CPT/HCPCS: 36415; 82310

== ENCOUNTER 2022-04-19 08:22 | Outpatient (REF) | payer MEDICARE, OTHER, SELFPAY ==
--- NOTE | ~2022-04-19 | US_ITS ---
EXAMINATION: US THYROID CLINICAL INFORMATION: Nontoxic single thyroid nodule. COMPARISON: CT chest 02/25/2021. Nuclear medicine thyroid uptake scan 09/19/2018. CTA neck 11/21/2012. TECHNIQUE: Linear transducer grayscale and color Doppler examination with attention to the region of the thyroid. FINDINGS: SIZE: Measurements of the thyroid lobes and nodules are given in sagittal, anteroposterior and transverse dimensions respectively. Right Thyroid Lobe: 5.9 x 1.9 x 1.7 cm, volume 9.7 mL. Parenchyma: The gland echotexture is heterogeneous. Thyroid vascularity is increased. Left Thyroid Lobe: 5.1 x 2.3 x 1.4 cm, volume 8.8 mL. Parenchyma: The gland echotexture is heterogeneous. Thyroid vascularity is increased. Isthmus: 0.6 cm in maximum AP dimension. Estimated total number of nodules greater than or equal to 1 cm: 5. Precision Machine Operator nodules are described as follows: 1. Location: Isthmus. Size: 2.4 x 1.1 x 2.0 cm, volume 2.7 mL. Nodule characteristics: Composition: Mixed cystic and solid (1). Echogenicity: Hypoechoic (2). Shape: Not taller than wide (0). Margins: Ill-defined (0). Echogenic Foci: Macrocalcifications (1). ACR TI-RADS total points: 4 ACR TI-RADS category: 4 2. Location: Right medial/mid pole. Size: 1.3 x 0.6 x 1.3 cm, volume 0.6 mL. Nodule characteristics: Composition: Solid/almost completely solid (2). Echogenicity: Isoechoic (1). Shape: Not taller than wide (0). Margins: Ill-defined (0). Echogenic Foci: Punctate echogenic foci (3). ACR TI-RADS total points: 6 ACR TI-RADS category: 4 3. Location: Right mid pole. Size: 1.1 x 0.8 x 0.8 cm, volume 0.3 mL. Nodule characteristics: Composition: Solid/almost completely solid (2). Echogenicity: Isoechoic (1). Shape: Not taller than wide (0). Margins: Smooth (0). Echogenic Foci: Macrocalcifications (1). ACR TI-RADS total points: 4 ACR TI-RADS category: 4 4. Location: Left mid pole. Size: 1.2 x 0.6 x 1.0 cm, volume 0.4 mL. Nodule characteristics: Composition: Solid/almost completely solid (2). Echogenicity: Isoechoic (1). Shape: Not taller than wide (0). Margins: Smooth (0). Echogenic Foci: Comet-tail artifacts (0). ACR TI-RADS total points: 3 ACR TI-RADS category: 3 5. Location: Left mid pole. Size: 1.5 x 0.8 x 1.4 cm, volume 0.9 mL. Nodule characteristics: Composition: Mixed cystic and solid (1). Echogenicity: Isoechoic (1). Shape: Not taller than wide (0). Margins: Ill-defined (0). Echogenic Foci: None (0). ACR TI-RADS total points: 2 ACR TI-RADS category: 2 NODES: No lymphadenopathy is seen in the tissue surrounding the thyroid gland. US/US thyroid IMPRESSION: 1. Diffusely heterogeneous, hypervascular thyroid gland. 2. Isthmus 2.4 cm TR 4 nodule for which fine-needle aspiration is recommended. 3. Right mid 1.3 cm and 1.1 cm TR 4 nodules for which follow-up in 1 year is recommended. ACR TI-RADS RECOMMENDATION REFERENCE: Ultrasound-guided fine-needle aspiration, followup ultrasound, no further follow up. * TR1 (0 point) and TR 2 (2 points): No FNA or follow up. * TR3 (3 points): FNA if more than or equal to 2.5 cm in maximum dimension, followup ultrasound in 1, 3 and 5 years if 1.5 to 2.4 cm in maximum dimension. * TR4 (4-6 points): FNA if more than or equal to 1.5 cm in maximum dimension, followup ultrasound in 1, 2, 3 and 5 years if 1 to 1.4 cm in maximum dimension. * TR5 (more than or equal to 7 points): FNA if more than or equal to 1 cm in maximum dimension, followup ultrasound every year for 5 years if 0.5 to 0.9 cm in maximum dimension. * TR3, TR4 or TR5 nodules that are below the size threshold for followup receive no follow up.
== END 2022-04-19 08:23 | disposition home or self-care (01) ==
LOC: HO.US 08:22
PROVIDERS: Visit Provider Internal Medicine Endocrinology, Diabetes & Metabolism
DX: E04.1 Nontoxic single thyroid nodule (principal)
CPT/HCPCS: 76536

== ENCOUNTER → 2022-05-10 08:53 | Outpatient (BNVA) | payer MEDICARE, OTHER, SELFPAY | PROVIDERS: PCP Internal Medicine; Visit Provider Internal Medicine Endocrinology, Diabetes & Metabolism | DX: E21.0 Primary hyperparathyroidism (principal); E04.2 Nontoxic multinodular goiter; M81.0 Age-related osteoporosis without current pathological fracture | CPT/HCPCS: 99212 ==

== ENCOUNTER 2022-06-16 09:40 | Outpatient (REF) | payer MEDICARE, OTHER, SELFPAY ==
[2022-06-16 09:49] LABS: MANUAL DIFF FLAG NO
[2022-06-16 11:11] LABS: Basophils Percent Auto 0.9 % (0-2); Eosinophils Percent Auto 1.9 % (0-4); Hematocrit 42.4 % (37.0-47.0); Hemoglobin 13.9 g/dl (12.0-16.0); Imm Gran Abs Auto 0.04 X10*3/uL (0.00-0.03); Imm Gran Pct Auto 0.5 % (0.0-0.4); Lymphocytes Absolute Auto 1.7 X10*3/uL (1.2-4.9); Lymphocytes Percent Auto 20.4 % (20-40); Mean Corpuscular HGB Conc 32.8 g/dl (31.0-35.0); Mean Corpuscular Volume 88.5 fL (80.0-98.0); Mean Platelet Volume 9.9 fL (9.4-12.3); Monocytes Absolute Auto 0.9 X10*3/uL (0.1-1.2); Monocytes Percent Auto 10.6 % (2-11); Neutrophils Absolute Auto 5.4 x10*3/uL (2.0-8.3); Neutrophils Percent Auto 65.7 % (45-73); Platelet Count 386 X10*3/uL (160-400); Red Blood Count 4.79 X10*6/uL (4.20-5.50); Red Cell Distribution Width 13.1 % (11.0-16.0); White Blood Count 8.2 X10*3/uL (4.8-10.8)
[2022-06-16 11:12] LABS: Basophils Absolute Auto 0.1 X10*3/uL (0.0-0.2); Eosinophils Absolute Auto 0.2 X10*3/uL (0.0-0.4)
[2022-06-16 11:33] LABS: Alanine Aminotransferase 13 U/L (0-31); Albumin Level 4.5 g/dL (3.5-5.0); Alkaline Phosphatase 100 U/L (39-117); Anion Gap 14 (12-20); Aspartate Amino Transferase 19 U/L (5-31); Bilirubin Total 0.8 mg/dL (0.0-1.0); Blood Urea Nitrogen 8 mg/dL (9-16); Calcium 10.6 mg/dL (8.4-10.2); Carbon Dioxide 26 mmol/L (22-29); Chloride 97 mmol/L (96-108); Cholesterol 187 mg/dL; Estimated Glomerular Filt Rate > 60; Glucose Random 112 mg/dL (60-115); HDL Cholesterol 77 mg/dL; LDL Cholesterol Calculated 92 mg/dl; Potassium 3.7 mmol/L (3.3-5.1); Sodium 133 mmol/L (135-145); Total Protein 7.5 g/dL (6.5-8.0); Triglycerides 91 mg/dL
[2022-06-16 11:51] LABS: Folate > 20.0 ng/mL (> or = 4.0); Free T4 (Free Thyroxine) 1.08 ng/dL (0.71-1.85); Vitamin B12 1192 pg/mL (200-900); Vitamin D 25-OH Total 37.4 ng/mL (>30)
== END 2022-06-16 09:41 | disposition home or self-care (01) ==
LOC: HO.LAB 09:40
PROVIDERS: PCP Internal Medicine; Visit Provider Internal Medicine
DX: I10 Essential (primary) hypertension (principal); E05.90 Thyrotoxicosis, unspecified without thyrotoxic crisis or storm; E78.00 Pure hypercholesterolemia, unspecified; M81.0 Age-related osteoporosis without current pathological fracture
CPT/HCPCS: 36415; 80053; 80061; 82306; 82607; 82746; 84439; 84443; 85025

== ENCOUNTER 2022-08-25 07:58 | Outpatient (REF) | payer MEDICARE, OTHER, SELFPAY ==
--- NOTE | 2022-08-25 08:37 | P.BOP_ITS ---
Brief Operative Note Date of Service: 08/25/22 Pre-op diagnosis: Multinodular Thyroid Procedure: EXAMINATION: US THYROID CLINICAL INFORMATION: Multinodular Thyroid COMPARISON: Prior TECHNIQUE: Linear transducer lozano-scale and color Doppler examination with attention to the region of the thyroid. FINDINGS: The thyroid is diffusely heterogenous with multiple spongiform nodules bilaterally. Nodules were not individually measured at this time. NODES: No lymphadenopathy is seen in the tissue surrounding the thyroid gland. Surgeon: Elizabeth Emanuel, DO Was an Brasswind Instrument Repairer used for this Procedure?: No Estimated blood loss (mL): 0
== END 2022-08-25 07:59 | disposition home or self-care (01) ==
LOC: HO.US 07:58
PROVIDERS: PCP Internal Medicine; Visit Provider Internal Medicine Endocrinology, Diabetes & Metabolism
DX: E04.2 Nontoxic multinodular goiter (principal)
CPT/HCPCS: 76536

== ENCOUNTER → 2022-09-08 08:08 | Outpatient (BNVA) | payer MEDICARE, OTHER, SELFPAY | PROVIDERS: PCP Internal Medicine; Visit Provider Internal Medicine Endocrinology, Diabetes & Metabolism | DX: E21.3 Hyperparathyroidism, unspecified (principal); E04.2 Nontoxic multinodular goiter | CPT/HCPCS: 99212 ==

== ENCOUNTER 2023-03-23 08:35 | Outpatient (REF) | payer MEDICARE, OTHER, SELFPAY ==
[2023-03-23 08:53] LABS: MANUAL DIFF FLAG NO
[2023-03-23 10:28] LABS: Basophils Absolute Auto 0.1 X10*3/uL (0.0-0.2); Basophils Percent Auto 0.9 % (0-2); Eosinophils Absolute Auto 0.2 X10*3/uL (0.0-0.4); Eosinophils Percent Auto 2.1 % (0-4); Hematocrit 42.6 % (37.0-47.0); Imm Gran Abs Auto 0.02 X10*3/uL (0.00-0.03); Imm Gran Pct Auto 0.3 % (0.0-0.4); Lymphocytes Absolute Auto 1.7 X10*3/uL (1.2-4.9); Lymphocytes Percent Auto 22.9 % (20-40); Mean Corpuscular HGB Conc 32.9 g/dl (31.0-35.0); Mean Corpuscular Hemoglobin 29.4 pg (27.0-33.0); Mean Corpuscular Volume 89.5 fL (80.0-98.0); Mean Platelet Volume 9.8 fL (9.4-12.3); Monocytes Absolute Auto 0.7 X10*3/uL (0.1-1.2); Monocytes Percent Auto 9.1 % (2-11); Neutrophils Absolute Auto 4.9 x10*3/uL (2.0-8.3); Neutrophils Percent Auto 64.7 % (45-73); Platelet Count 413 X10*3/uL (160-400); Red Blood Count 4.76 X10*6/uL (4.20-5.50); Red Cell Distribution Width 12.5 % (11.0-16.0); White Blood Count 7.5 X10*3/uL (4.8-10.8)
[2023-03-23 10:59] LABS: Alanine Aminotransferase 8 U/L (0-31); Albumin Level 4.4 g/dL (3.5-5.0); Alkaline Phosphatase 109 U/L (39-117); Anion Gap 13 (12-20); Aspartate Amino Transferase 17 U/L (5-31); Bilirubin Total 0.6 mg/dL (0.0-1.0); Blood Urea Nitrogen 9 mg/dL (9-16); Calcium 10.4 mg/dL (8.4-10.2); Carbon Dioxide 28 mmol/L (22-29); Chloride 102 mmol/L (96-108); Cholesterol 198 mg/dL (<200); Estimated Glomerular Filt Rate > 60; Glucose Random 101 mg/dL (60-115); HDL Cholesterol 79 mg/dL (>40); LDL Cholesterol Calculated 99 mg/dL (<100); Potassium 3.4 mmol/L (3.3-5.1); Sodium 140 mmol/L (135-145); Total Protein 7.9 g/dL (6.5-8.0); Triglycerides 100 mg/dL (<150)
[2023-03-23 11:03] LABS: Free T4 (Free Thyroxine) 0.91 ng/dL (0.71-1.85); Thyroid Stimulating Hormone 1.05 uIU/mL (0.32-4.0); Vitamin D 25-OH Total 41.9 ng/mL (>30)
[2023-03-23 11:12] LABS: Folate 15.6 ng/mL (> or = 4.0); Vitamin B12 863 pg/mL (200-900)
== END 2023-03-23 08:36 | disposition home or self-care (01) ==
LOC: HO.LAB 08:35
PROVIDERS: PCP Internal Medicine; Visit Provider Internal Medicine
DX: E05.90 Thyrotoxicosis, unspecified without thyrotoxic crisis or storm (principal); E78.00 Pure hypercholesterolemia, unspecified
CPT/HCPCS: 36415; 80053; 80061; 82306; 82607; 82746; 84439; 84443; 85025

== ENCOUNTER 2023-03-30 08:10 | Outpatient (AMB) | payer MEDICARE, OTHER, SELFPAY ==
[2023-03-30 08:27] VITALS: BP 136/74; PULSE 74; O2SAT 97; BMI 22.7
--- NOTE | 2023-03-30 08:27 | A.OFFPC_ITS ---
Vital Signs 03/30/23 08:27 Height 5 ft 2 in Weight 124 lb BMI 22.7 BP 136/74 Blood Pressure Location Lt brachial Position Sitting Pulse 74 Pulse Source Pulse Oximeter Pulse Oximetry (%) 97 Oxygen Delivery Method Room Air Intake Visit Reasons: hyperparathyroid, hyperthyroid Allergies hydrochlorothiazide Adverse Reaction (Intermediate, Verified 03/30/23 08:27) hypercalcemia Tobacco use date assessed: 06/20/22 Fall risk assessment: No Falls in past year Last assessed Fall Risk: 03/30/23 Dental Screening Dental Screen Date: 03/30/23 Did you have a dental visit in the last 12 months?: No Did you have a dental problem in the last 6 months where you did not have access to dental care?: No Was dental information given to patient?: No HPI hyperparathyroid, hyperthyroid HPI Details 87-year-old female with osteoporosis hyp erparathyroidism hyperthyroidism hypertension hypercholesterolemia coming in for follow-up. Patient was last seen in September 2022. Patient just had blood work done. Noted weight [facility] Medical History Arthritis COVID-19 vaccine series completed Gastric ulcer High cholesterol History of blood transfusion Hx of flexible sigmoidoscopy Hypertension Hyperthyroidism Multinodular goiter (nontoxic) Surgical History History of endoscopy History of tonsillectomy Hx of cataract extraction S/P JEFF-BSO Social History Household Members: Family Household Members Other:: 2 family home-daughter lives on 1st floor Housing: House Are you a primary progressive care unit registered nurse to a significant other at home: No Do you presently have visiting nurse or other home services: No Alcohol intake: current Alcohol type: wine Patient Tobacco Use Status: Former Tobacco user Quit Date: Tobacco use type: Cigarette e-Cigarette/Vaping Use: Never Used Second Hand Smoke Exposure: No service: No Current occupational status: retired Cognitive needs: Yes (cane) Hearing needs: No Vision needs: Yes (Reading glasses) Questionnaire PHQ-9 Over the last 2 weeks, how often have you been bothered by any of the following problems? 1. Little interest or pleasure in doing things: not at all 2. Feeling down, depressed, or hopeless: not at all 3. Trouble falling or staying asleep, or sleeping too much: not at all 4. Feeling tired or having little energy: not at all 5. Poor appetite or overeating: not at all 6. Feeling bad about yourself - or that you are a failure or have let yourself or your family down: not at all 7. Trouble concentrating on things, such as reading the newspaper or watching television: not at all 8. Moving or speaking so slowly that other people could have noticed. Or the opposite - being so fidgety or restless that you have been moving around a lot more than usual: not at all 9. Thoughts that you would be better off or of hurting yourself in some way: not at all Total score: 0 Depression Screening Interpretation: Negative Depression Screening Done: Yes Source: Developed by Drs. Drake Love, Lidia Muniz, Zak Crandall and colleagues, with an educational esperanza from [employer]. Thrive Questionnaire Date Thrive assessed: 06/20/22 AUDIT C Alcohol Use Questionnaire (AUDIT-C) 1. How often do you have a drink containing alcohol?: Never Total Score: 0 SWATI-7 AMB Questionnaire SWATI-7 Date SWATI - 7 assessed: 06/20/22 Source: Developed by Drs. Drake Love, Lidia Muniz, Zak Crandall and colleagues, with an educational esperanza from [employer]. Physical exam (Primary Care) Vital Signs: Last Vital Signs Pulse 74 03/30/23 08:27 BP 136/74 03/30/23 08:27 Pulse Ox 97 03/30/23 08:27 Oxygen Delivery Method Room Air 03/30/23 08:27 BMI result Body Mass Index 22.7 Tobacco/Smoking Status: Tobacco use Status Tobacco use date assessed 06/20/22 03/30/23 08:33 Patient Tobacco Use Status Former Tobacco user 03/30/23 08:33 Tobacco use type Cigarette 03/30/23 08:33 e-Cigarette/Vaping Use Never Used 03/30/23 08:33 PHQ-9: PHQ-9 Score PHQ-9: Total score 0 03/30/23 08:33 Depression Screening Interpretation: Negative Thrive Assessment: Date of Thrive Assessment Date Thrive assessed 06/20/22 03/30/23 08:33 Const General: alert; No acute distress Eyes Conjunctivae: conjunctivae normal Resp Auscultation: clear to auscultation bilaterally Cardio Rate: regular rate Rhythm: regular rhythm GI Inspection: Yes normal to inspection Extrem General: Yes normal to inspection and No edema Assessment and Plan Assessment & Plan (1) Hypertension: Code(s): I10 - Essential (primary) hypertension Plan: Continue with blood pressure medication. Decrease salt intake and exercise presently on amlodipine 5 mg once a day losartan 100 mg once a day and metoprolol 200 mg once a day (2) High cholesterol: Code(s): E78.00 - Pure hypercholesterolemia, unspecified Plan: Avoid fried foods, chicken skin, eggs, butter margarine, pastries and meat. Be it pork or beef they have a lot of cholesterol LDL goal of less than 130 and triglyceride of less than 150 patient is on pravastatin 80 mg once a day (3) Hyperthyroidism: Code(s): E05.90 - Thyrotoxicosis, unspecified without thyrotoxic crisis or storm Plan: Continue with methimazole 5 mg once a day (4) Hyperparathyroidism: Code(s): E21.3 - Hyperparathyroidism, unspecified Plan: Continuing to monitor. Patient does have osteoporosis (5) Hypokalemia: Code(s): E87.6 - Hypokalemia Plan: Will do some replacement Medications: Discontinued alendronate Discontinued Reason: Patient Refused 70 mg PO QWEEK 7 tabs 4RF Coding Level of Care Code Est Pt Level 4 (09620) Diagnoses Hypertension I10 High cholesterol E78.00 Hyperthyroidism E05.90 Hyperparathyroidism E21.3 Hypokalemia E87.6
== END 2023-03-30 08:57 | disposition home or self-care (01) ==
PROVIDERS: PCP Internal Medicine; Visit Provider Internal Medicine
DX: I10 Essential (primary) hypertension (principal); E78.00 Pure hypercholesterolemia, unspecified; E05.90 Thyrotoxicosis, unspecified without thyrotoxic crisis or storm; E21.3 Hyperparathyroidism, unspecified; E87.6 Hypokalemia
CPT/HCPCS: 99214

== ENCOUNTER 2023-09-29 08:37 | Outpatient (AMB) | payer MEDICARE, OTHER, SELFPAY ==
[2023-09-29 08:38] VITALS: BP 146/82; PULSE 88; O2SAT 98; BMI 24.1
--- NOTE | 2023-09-29 08:38 | A.OFFPC_ITS ---
Vital Signs 09/29/23 08:38 Height 5 ft 2 in Weight 132 lb 0.2 oz BMI 24.1 BP 146/82 H Blood Pressure Location Lt brachial Position Sitting Pulse 88 Pulse Source Pulse Oximeter Pulse Oximetry (%) 98 Oxygen Delivery Method Room Air Intake Visit Reasons: Hypertension Formula Maker Required: No Allergies hydrochlorothiazide Adverse Reaction (Intermediate, Verified 09/29/23 08:38) hypercalcemia Tobacco use date assessed: 09/29/23 Fall risk assessment: No Falls in past year Last assessed Fall Risk: 09/29/23 Dental Screening Dental Screen Date: 03/30/23 HPI Hypertension HPI Details 88-year-old female with hypertension hyp ercholesterolemia hyperthyroidism hyperparathyroidism coming in for follow-up. Last seen in 04/05/2023. eat ing better and icecream [facility] Medical History Arthritis COVID-19 vaccine series completed Gastric ulcer High cholesterol History of blood transfusion Hx of flexible sigmoidoscopy Hypertension Hyperthyroidism Multinodular goiter (nontoxic) Surgical History History of endoscopy History of tonsillectomy Hx of cataract extraction S/P JEFF-BSO Social History Household Members: Family Household Members Other:: 2 family home-daughter lives on 1st floor Housing: House Are you a primary client care coordinator to a significant other at home: No Do you presently have visiting nurse or other home services: No Alcohol intake: current Alcohol type: wine Patient Tobacco Use Status: Former Tobacco user Tobacco use type: Cigarette e-Cigarette/Vaping Use: Never Used Second Hand Smoke Exposure: No service: No Current occupational status: retired Cognitive needs: Yes (cane) Hearing needs: No Vision needs: Yes (Reading glasses) Questionnaire PHQ-9 Over the last 2 weeks, how often have you been bothered by any of the following problems? 1. Little interest or pleasure in doing things: not at all 2. Feeling down, depressed, or hopeless: not at all 3. Trouble falling or staying asleep, or sleeping too much: not at all 4. Feeling tired or having little energy: not at all 5. Poor appetite or overeating: not at all 6. Feeling bad about yourself - or that you are a failure or have let yourself or your family down: not at all 7. Trouble concentrating on things, such as reading the newspaper or watching television: not at all 8. Moving or speaking so slowly that other people could have noticed. Or the opposite - being so fidgety or restless that you have been moving around a lot more than usual: not at all 9. Thoughts that you would be better off or of hurting yourself in some way: not at all Total score: 0 Depression Screening Interpretation: Negative Depression Screening Done: Yes Source: Developed by Drs. Drake Love, Lidia Muniz, Zak Crandall and colleagues, with an educational esperanza from [employer]. Thrive Questionnaire Date Thrive assessed: 09/29/23 I am a: Patient What is your living situation today?: I have a steady place to live Within the past 12 months, did the food you bought not last and you didn't have the money to get more?: Never true Within the past 12 months, did you worry whether your food would run out before you got money to buy more?: Never true Do you have trouble paying for medicines?: No Do you have trouble getting transportation to medical appointments?: No Do you have trouble paying your heating and electricity bill?: No Do you have trouble taking care of your child, family member or friend?: No Do you have trouble with day-to-day activities such as bathing, preparing meals, shopping, managing finances, etc.?: No Are you currently unemployed and looking for a job?: No Are you interested in more education?: No Please select the resources that you would like help with: None Currently or been in a relationship where the following occur: no concerns reported THRIVE Score: 0 AUDIT C Alcohol Use Questionnaire (AUDIT-C) 1. How often do you have a drink containing alcohol?: Never 3. How often do you have six or more drinks on one occasion?: Never Total Score: 0 SWATI-7 AMB Questionnaire SWATI-7 Date SWATI - 7 assessed: 09/29/23 Feeling nervous, anxious, or on edge: 0 = Not at all Not being able to stop or control worryin = Not at all Worrying too much about different things: 0 = Not at all Trouble relaxin = Not at all Being so restless that it is hard to sit still: 0 = Not at all Becoming easily annoyed or irritable: 0 = Not at all Feeling afraid as if something awful might happen: 0 = Not at all Total SWATI-7 score (0-4 normal; 5-9 mild; 10-14 moderate; 15-21 severe): 0 Source: Developed by Drs. Drake Love, Lidia Muniz, Zak Crandall and colleagues, with an educational esperanza from [employer]. SWATI-7 Assessment Billing SWATI-7 Assessment Tool: SWATI-7 Assessment 96205 Physical exam (Primary Care) Vital Signs: Last Vital Signs Pulse 88 09/29/23 08:38 BP 146/82 H 09/29/23 08:38 Pulse Ox 98 09/29/23 08:38 Oxygen Delivery Method Room Air 09/29/23 08:38 BMI result Body Mass Index 24.1 Tobacco/Smoking Status: Tobacco use Status Tobacco use date assessed 09/29/23 09/29/23 08:40 Patient Tobacco Use Status Former Tobacco user 09/29/23 08:40 Tobacco use type Cigarette 09/29/23 08:40 e-Cigarette/Vaping Use Never Used 09/29/23 08:40 PHQ-9: PHQ-9 Score PHQ-9: Total score 0 09/29/23 08:40 Depression Screening Interpretation: Negative Thrive Assessment: Date of Thrive Assessment Date Thrive assessed 09/29/23 09/29/23 08:40 Currently or been in a relationship where the following occur: no concerns reported Const General: alert; No acute distress Eyes Conjunctivae: conjunctivae normal Resp Auscultation: clear to auscultation bilaterally Cardio Rate: regular rate Rhythm: regular rhythm GI Inspection: Yes normal to inspection Extrem General: Yes normal to inspection and No edema Assessment and Plan Assessment & Plan (1) Hyperthyroidism: Code(s): E05.90 - Thyrotoxicosis, unspecified without thyrotoxic crisis or storm Plan: Presently on methimazole last blood work March (2) Hypertension: Code(s): I10 - Essential (primary) hypertension Plan: Continue with blood pressure medication. Decrease salt intake and exercise metoprolol 200 mg once a day losartan 100 mg once a day amlodipine 5 mg once a day (3) High cholesterol: Code(s): E78.00 - Pure hypercholesterolemia, unspecified Plan: Avoid fried foods, chicken skin, eggs, butter margarine, pastries and meat. Be it pork or beef they have a lot of cholesterol 04/05/2023 last blood work on pravastatin 80 mg once a day (4) Hyperparathyroidism: Code(s): E21.3 - Hyperparathyroidism, unspecified Plan: Continue to monitor calcium (5) Osteoporosis: Comment: 10/04/2021 last bone density Code(s): M81.0 - Age-related osteoporosis without current pathological fracture Plan: . Orders: Orders Complete Blood Count Auto Diff 6 Months I10 - Essential (primary) hypertension Lipid Panel 6 Months E78.00 - Pure hypercholesterolemia, unspecified, I10 - Essential (primary) hypertension Thyroid Stimulating Hormone 6 Months I10 - Essential (primary) hypertension Vitamin D 25-OH Total 6 Months I10 - Essential (primary) hypertension Comprehensive Met. Panel 6 Months I10 - Essential (primary) hypertension Free T4 (Free Thyroxine) 6 Months I10 - Essential (primary) hypertension Vitamin B12 and Folate 6 Months I10 - Essential (primary) hypertension Coding Level of Care Code Est Pt Level 4 (84539) Diagnoses Hyperthyroidism E05.90 Hypertension I10 High cholesterol E78.00 Hyperparathyroidism E21.3 Osteoporosis M81.0 Additional Codes SWATI-7 Assessment Billing - SWATI-7 Assessment Tool: SWATI-7 Assessment [id number] ([id number])
== END 2023-09-29 09:09 | disposition home or self-care (01) ==
PROVIDERS: PCP Internal Medicine; Visit Provider Internal Medicine
DX: I10 Essential (primary) hypertension (principal); E05.90 Thyrotoxicosis, unspecified without thyrotoxic crisis or storm; E78.00 Pure hypercholesterolemia, unspecified; E21.3 Hyperparathyroidism, unspecified; M81.0 Age-related osteoporosis without current pathological fracture
CPT/HCPCS: 99214

== ENCOUNTER 2024-03-12 14:50 | Outpatient (AMB) | payer MEDICARE, OTHER, SELFPAY ==
[2024-03-12 15:00] VITALS: BP 138/68; PULSE 70; O2SAT 94; BMI 24.6
--- NOTE | 2024-03-12 15:00 | MHC.PC.OV ---
Vital Signs 03/12/24 15:00 Height 5 ft 2 in Weight 134 lb 4.184 oz BMI 24.6 BP 138/68 Blood Pressure Location Lt brachial Position Sitting Pulse 70 Pulse Source Pulse Oximeter Pulse Oximetry (%) 94 Oxygen Delivery Method Room Air Intake Visit Reasons: Shakiness Allergies hydrochlorothiazide Adverse Reaction (Intermediate, Verified 03/12/24 15:01) hypercalcemia Tobacco use date assessed: 09/29/23 Fall risk assessment: No Falls in past year Last assessed Fall Risk: 03/12/24 Dental Screening Dental Screen Date: 03/30/23 HPI Shakiness HPI Details 88-year-old female with hyperthyroidism hypertension hypercholesterolemia hyperparathyroidism and osteoporosis last seen in September 2023. Patient last complete blood work was in March 2023. Patient complains of having tremors inside. Denies any nausea no vomiting no cough no bowel bladder symptoms no chest pains. Patient seems to think that her anxiety is getting bad but could not name reason for why anxiety would be bad. Patient has the alprazolam to take half a tablet every day and this time has not been coming her. Did discussed with the patient that she can take a full tablet. [facility] Medical History Arthritis COVID-19 vaccine series completed Gastric ulcer High cholesterol History of blood transfusion Hx of flexible sigmoidoscopy Hypertension Hyperthyroidism Multinodular goiter (nontoxic) Surgical History History of endoscopy History of tonsillectomy Hx of cataract extraction S/P JEFF-BSO Social History Household Members: Family Household Members Other:: 2 family home-daughter lives on 1st floor Housing: House Are you a primary healthcare sales representative to a significant other at home: No Do you presently have visiting nurse or other home services: No Alcohol intake: current Alcohol type: wine Patient Tobacco Use Status: Former Tobacco user Tobacco use type: Cigarette e-Cigarette/Vaping Use: Never Used Second Hand Smoke Exposure: No service: No Current occupational status: retired Cognitive needs: Yes (cane) Hearing needs: No Vision needs: Yes (Reading glasses) Questionnaire PHQ-9 Over the last 2 weeks, how often have you been bothered by any of the following problems? 1. Little interest or pleasure in doing things: not at all 2. Feeling down, depressed, or hopeless: not at all 3. Trouble falling or staying asleep, or sleeping too much: not at all 4. Feeling tired or having little energy: not at all 5. Poor appetite or overeating: not at all 6. Feeling bad about yourself - or that you are a failure or have let yourself or your family down: not at all 7. Trouble concentrating on things, such as reading the newspaper or watching television: not at all 8. Moving or speaking so slowly that other people could have noticed. Or the opposite - being so fidgety or restless that you have been moving around a lot more than usual: not at all 9. Thoughts that you would be better off or of hurting yourself in some way: not at all Total score: 0 Depression Screening Interpretation: Negative Depression Screening Done: Yes Source: Developed by Drs. Drake Love, Zak Jones and colleagues, with an educational esperanza from [employer]. Thrive Questionnaire Date Thrive assessed: 09/29/23 AUDIT C Alcohol Use Questionnaire (AUDIT-C) 1. How often do you have a drink containing alcohol?: Never 3. How often do you have six or more drinks on one occasion?: Never Total Score: 0 SWATI-7 AMB Questionnaire SWATI-7 Date SWATI - 7 assessed: 09/29/23 Source: Developed by Drs. Drake Love, Zak Jones and colleagues, with an educational esperanza from [employer]. Physical exam (Primary Care) Vital Signs: Last Vital Signs Pulse 70 03/12/24 15:00 BP 138/68 03/12/24 15:00 Pulse Ox 94 03/12/24 15:00 Oxygen Delivery Method Room Air 03/12/24 15:00 BMI result Body Mass Index 24.6 Tobacco/Smoking Status: Tobacco use Status Tobacco use date assessed 09/29/23 03/12/24 15:07 Patient Tobacco Use Status Former Tobacco user 03/12/24 15:07 Tobacco use type Cigarette 03/12/24 15:07 e-Cigarette/Vaping Use Never Used 03/12/24 15:07 PHQ-9: PHQ-9 Score PHQ-9: Total score 0 03/12/24 15:07 Depression Screening Interpretation: Negative Thrive Assessment: Date of Thrive Assessment Date Thrive assessed 09/29/23 03/12/24 15:07 Const General: alert; No acute distress Eyes Conjunctivae: conjunctivae normal Resp Other: Noted bibasilar crackles Cardio Rate: regular rate Rhythm: regular rhythm GI Inspection: Yes normal to inspection Extrem General: Yes normal to inspection and No edema Coding Level of Care Code Est Pt Level 4 (65602) Diagnoses Hyperparathyroidism E21.3 Hyperthyroidism E05.90 Primary hypertension I10 Hypertension type: primary hypertension Tremor R25.1 Assessment & Plan Assessment & Plan (1) Hyperparathyroidism: Code(s): E21.3 - Hyperparathyroidism, unspecified Category: Medical Plan: Continuing to monitor calcium. (2) Hyperthyroidism: Code(s): E05.90 - Thyrotoxicosis, unspecified without thyrotoxic crisis or storm Category: Medical Plan: On methimazole will have to retest blood work (3) Hypertension: Code(s): I10 - Essential (primary) hypertension Category: Medical Qualifiers: Hypertension type: primary hypertension Qualified Code(s): I10 - Essential (primary) hypertension Plan: Continue with blood pressure medication. Decrease salt intake and exercise patient on losartan, amlodipine. (4) Tremor: Code(s): R25.1 - Tremor, unspecified Category: Medical Plan: With bibasilar crackles chest x-ray is requested. Advised to get nonfasting blood work as well as urinalysis this time. Discussion about anxiety medication. We can do this after the workup has been negative. Orders: Orders Thyroid Stimulating Hormone Today R25.1 - Tremor, unspecified Phosphorus Today R25.1 - Tremor, unspecified XR chest 2V Today R25.1 - Tremor, unspecified Complete Blood Count Auto Diff Today R25.1 - Tremor, unspecified Comprehensive Met. Panel Today R25.1 - Tremor, unspecified Free T4 (Free Thyroxine) Today R25.1 - Tremor, unspecified Magnesium Today R25.1 - Tremor, unspecified UA CC w/rflx Micro + Cult Today R25.1 - Tremor, unspecified, R30.0 - Dysuria
== END 2024-03-12 16:10 | disposition home or self-care (01) ==
PROVIDERS: PCP Internal Medicine; Visit Provider Internal Medicine
DX: E21.3 Hyperparathyroidism, unspecified (principal); E05.90 Thyrotoxicosis, unspecified without thyrotoxic crisis or storm; I10 Essential (primary) hypertension; R25.1 Tremor, unspecified

== ENCOUNTER 2024-03-12 14:50 | Outpatient (REF) | payer MEDICARE, OTHER, SELFPAY ==
--- NOTE | ~2024-03-12 | XR_ITS ---
EXAMINATION: XR CHEST CLINICAL INFORMATION: R25.1 - Tremor, unspecified COMPARISON: Chest x-ray February 25, 2021 TECHNIQUE: 2 views of the chest were obtained. FINDINGS: Chronic increased lung markings. No acute airspace disease. No pulmonary vascular congestion or pleural effusion. Cardiac and mediastinal contours normal. Calcifications of thoracic aortic arch. XR/XR chest 2V IMPRESSION: Chronic increased lung markings. No acute airspace disease. Electronically signed by: John Morley MD 03/13/2024 05:42 PM EST
[2024-03-12 15:51] LABS: MANUAL DIFF FLAG NO
[2024-03-12 17:37] LABS: Alanine Aminotransferase 13 U/L (0-31); Albumin Level 4.1 g/dL (3.5-5.0); Alkaline Phosphatase 106 U/L (39-117); Anion Gap 12 (12-20); Aspartate Amino Transferase 21 U/L (5-31); Bilirubin Total 0.4 mg/dL (0.0-1.0); Blood Urea Nitrogen 11 mg/dL (9-16); Calcium 10.6 mg/dL (8.4-10.2); Carbon Dioxide 25 mmol/L (22-29); Chloride 99 mmol/L (96-108); Estimated Glomerular Filt Rate > 60; Glucose Random 133 mg/dL (60-115); Magnesium 2.1 mg/dL (1.6-2.6); Phosphorus 2.6 mg/dL (2.7-4.5); Potassium 3.4 mmol/L (3.3-5.1); Sodium 133 mmol/L (135-145); Total Protein 7.2 g/dL (6.5-8.0)
[2024-03-12 17:53] LABS: Free T4 (Free Thyroxine) 1.14 ng/dL (0.71-1.85); Thyroid Stimulating Hormone 1.15 uIU/mL (0.32-4.0)
[2024-03-12 18:31] LABS: Basophils Absolute Auto 0.1 X10*3/uL (0.0-0.2); Eosinophils Absolute Auto 0.2 X10*3/uL (0.0-0.4); Eosinophils Percent Auto 2.3 % (0-4); Hemoglobin 14.7 g/dl (12.0-16.0); Imm Gran Abs Auto 0.03 X10*3/uL (0.00-0.03); Imm Gran Pct Auto 0.4 % (0.0-0.4); Lymphocytes Absolute Auto 1.6 X10*3/uL (1.2-4.9); Lymphocytes Percent Auto 21.9 % (20-40); Mean Corpuscular HGB Conc 33.4 g/dl (31.0-35.0); Mean Corpuscular Hemoglobin 30.4 pg (27.0-33.0); Mean Corpuscular Volume 91.1 fL (80.0-98.0); Mean Platelet Volume 9.5 fL (9.4-12.3); Monocytes Absolute Auto 0.9 X10*3/uL (0.1-1.2); Monocytes Percent Auto 12.3 % (2-11); Neutrophils Absolute Auto 4.5 x10*3/uL (2.0-8.3); Neutrophils Percent Auto 62.1 % (45-73); Platelet Count 394 X10*3/uL (160-400); Red Blood Count 4.83 X10*6/uL (4.20-5.50); Red Cell Distribution Width 12.8 % (11.0-16.0); White Blood Count 7.3 X10*3/uL (4.8-10.8)
== END 2024-03-12 14:51 | disposition home or self-care (01) ==
LOC: HO.XRAY 14:50
PROVIDERS: PCP Internal Medicine; Visit Provider Internal Medicine
DX: R25.1 Tremor, unspecified (principal); E21.3 Hyperparathyroidism, unspecified; E05.90 Thyrotoxicosis, unspecified without thyrotoxic crisis or storm; I10 Essential (primary) hypertension
CPT/HCPCS: 36415; 71046; 80053; 83735; 84100; 84439; 84443; 85025; 99212

== ENCOUNTER 2024-03-18 02:15 | Outpatient (REF) | payer MEDICARE, OTHER, SELFPAY ==
[2024-03-18 09:06] LABS: Appearance Urine Clear; Color Urine Yellow; Glucose Urine UA Negative (Negative); Leukocyte Esterase Urine Negative (Negative); Nitrite Urine Negative (Negative); Specific Gravity - Urine <= 1.005 (1.005-1.025); Urine Blood Negative (Negative); Urine Ketones Negative (Negative); Urine Protein Negative (Neg-Trace)
== END 2024-03-18 02:16 | disposition home or self-care (01) ==
LOC: HO.LNP 02:15
PROVIDERS: Visit Provider Internal Medicine
DX: R30.0 Dysuria (principal); R25.1 Tremor, unspecified
CPT/HCPCS: 81003

== ENCOUNTER 2024-03-26 09:55 | Outpatient (REF) | payer MEDICARE, OTHER, SELFPAY ==
[2024-03-26 11:42] LABS: Basophils Percent Auto 0.5 % (0-2); Eosinophils Absolute Auto 0.1 X10*3/uL (0.0-0.4); Hemoglobin 14.3 g/dl (12.0-16.0); Imm Gran Abs Auto 0.03 X10*3/uL (0.00-0.03); Imm Gran Pct Auto 0.5 % (0.0-0.4); Lymphocytes Absolute Auto 1.3 X10*3/uL (1.2-4.9); Lymphocytes Percent Auto 21.3 % (20-40); MANUAL DIFF FLAG SCAN; Mean Corpuscular HGB Conc 34.9 g/dl (31.0-35.0); Mean Corpuscular Hemoglobin 30.2 pg (27.0-33.0); Mean Corpuscular Volume 86.5 fL (80.0-98.0); Mean Platelet Volume 9.4 fL (9.4-12.3); Monocytes Absolute Auto 1.5 X10*3/uL (0.1-1.2); Neutrophils Absolute Auto 3.1 x10*3/uL (2.0-8.3); Neutrophils Percent Auto 51.7 % (45-73); Platelet Count 382 X10*3/uL (160-400); Red Blood Count 4.74 X10*6/uL (4.20-5.50); Red Cell Distribution Width 12.3 % (11.0-16.0); SCAN SMEAR FLAG 1
[2024-03-26 11:47] LABS: SLIDE REVIEW VERIFIED
[2024-03-26 11:59] LABS: Alanine Aminotransferase 11 U/L (0-31); Albumin Level 3.8 g/dL (3.5-5.0); Alkaline Phosphatase 75 U/L (39-117); Anion Gap 14 (12-20); Aspartate Amino Transferase 31 U/L (5-31); Bilirubin Total 0.4 mg/dL (0.0-1.0); Blood Urea Nitrogen 10 mg/dL (9-16); Calcium 10.3 mg/dL (8.4-10.2); Carbon Dioxide 26 mmol/L (22-29); Chloride 96 mmol/L (96-108); Cholesterol 185 mg/dL (<200); Estimated Glomerular Filt Rate > 60; Glucose Random 111 mg/dL (60-115); HDL Cholesterol 45 mg/dL (>40); LDL Cholesterol Calculated 116 mg/dL (<100); Potassium 3.1 mmol/L (3.3-5.1); Sodium 133 mmol/L (135-145); Total Protein 7.1 g/dL (6.5-8.0); Triglycerides 120 mg/dL (<150)
[2024-03-26 12:17] LABS: Folate 17.4 ng/mL (> or = 4.0); Vitamin B12 1898 pg/mL (200-900)
[2024-03-26 12:20] LABS: Free T4 (Free Thyroxine) 1.23 ng/dL (0.71-1.85); Thyroid Stimulating Hormone 0.56 uIU/mL (0.32-4.0); Vitamin D 25-OH Total 36.9 ng/mL (>30)
== END 2024-03-26 09:56 | disposition home or self-care (01) ==
LOC: HO.LAB 09:55
PROVIDERS: PCP Internal Medicine; Visit Provider Internal Medicine
DX: I10 Essential (primary) hypertension (principal); E78.00 Pure hypercholesterolemia, unspecified
CPT/HCPCS: 36415; 80053; 80061; 82306; 82607; 82746; 84439; 84443; 85025

== ENCOUNTER 2024-04-02 08:22 | Outpatient (AMB) | payer MEDICARE, OTHER, SELFPAY ==
[2024-04-02 08:29] VITALS: BP 144/80; PULSE 105; O2SAT 95; BMI 23.6
--- NOTE | 2024-04-02 08:29 | MHC.PC.OV ---
Vital Signs 04/02/24 08:29 Height 5 ft 2 in Weight 128 lb 15.527 oz BMI 23.6 BP 144/80 H Blood Pressure Location Lt brachial Position Sitting Pulse 105 H Pulse Source Pulse Oximeter Pulse Oximetry (%) 95 Oxygen Delivery Method Room Air Intake Visit Reasons: Hypertension Intake Note: Getting over a cold. Has a productive cough. Allergies hydrochlorothiazide Adverse Reaction (Intermediate, Verified 04/02/24 08:30) hypercalcemia Tobacco use date assessed: 04/02/24 Fall risk assessment: 2 + Falls in past year Last assessed Fall Risk: 04/02/24 Dental Screening Dental Screen Date: 04/02/24 Did you have a dental visit in the last 12 months?: No Did you have a dental problem in the last 6 months where you did not have access to dental care?: No Was dental information given to patient?: Patient has dentist HPI Hypertension HPI Details The patient is an 88-year-old female presenting with tremors and generalized shakiness. She reports feeling very shaky, which is distressing. The patient has undergone extensive laboratory evaluation, revealing stable renal function and mildly low sodium levels (133 mmol/L), which were consistent with results from the previous year. Although potassium levels were detected to be low, the replacement therapy was delayed due to mail delivery issues. The patient consumes bananas to supplement potassium intake, yet experiences ongoing symptoms. She maintains a daily intake of one banana. Additional concerns include a history of falls, most notable when attempting to mobilize without support, and apprehension about using a walker. Furthermore, the patient describes an increased frequency of falls. Minor scarring in the lungs has been identified, but no new lung infections have been noted. Anxiety appears to exacerbate the patient's shakiness, and she is currently on short-acting anxiety medication, which she takes regularly. There is discussion of transitioning to a long-acting medication to manage symptoms more effectively. [facility] Medical History Arthritis COVID-19 vaccine series completed Gastric ulcer High cholesterol History of blood transfusion Hx of flexible sigmoidoscopy Hypertension Hyperthyroidism Multinodular goiter (nontoxic) Surgical History History of endoscopy History of tonsillectomy Hx of cataract extraction S/P JEFF-O Social History Household Members: Family Household Members Other:: 2 family home-daughter lives on 1st floor Housing: House Are you a primary career coordinator to a significant other at home: No Do you presently have visiting nurse or other home services: No Alcohol intake: current Alcohol type: wine Patient Tobacco Use Status: Former Tobacco user Tobacco use type: Cigarette e-Cigarette/Vaping Use: Never Used Second Hand Smoke Exposure: No service: No Current occupational status: retired Cognitive needs: Yes (cane) Hearing needs: No Vision needs: Yes (Reading glasses) Questionnaire PHQ-9 Over the last 2 weeks, how often have you been bothered by any of the following problems? 1. Little interest or pleasure in doing things: several days 2. Feeling down, depressed, or hopeless: several days 3. Trouble falling or staying asleep, or sleeping too much: not at all 4. Feeling tired or having little energy: nearly every day 5. Poor appetite or overeating: not at all 6. Feeling bad about yourself - or that you are a failure or have let yourself or your family down: not at all 7. Trouble concentrating on things, such as reading the newspaper or watching television: not at all 8. Moving or speaking so slowly that other people could have noticed. Or the opposite - being so fidgety or restless that you have been moving around a lot more than usual: not at all 9. Thoughts that you would be better off or of hurting yourself in some way: not at all Total score: 5 Depression Screening Interpretation: Negative Depression Screening Done: Yes Source: Developed by Drs. Draek Love, Lidia Muniz, Zak Crandall and colleagues, with an educational esperanza from [employer]. Thrive Questionnaire Date Thrive assessed: 09/29/23 AUDIT C Alcohol Use Questionnaire (AUDIT-C) 1. How often do you have a drink containing alcohol?: Never 3. How often do you have six or more drinks on one occasion?: Never Total Score: 0 SWATI-7 AMB Questionnaire SWATI-7 Date SWATI - 7 assessed: 09/29/23 Source: Developed by Drs. Drake Love, Lidia Muniz, Zak Crandall and colleagues, with an educational esperanza from [employer]. Physical exam (Primary Care) Vital Signs: Last Vital Signs Pulse 105 H 04/02/24 08:29 BP 144/80 H 04/02/24 08:29 Pulse Ox 95 04/02/24 08:29 Oxygen Delivery Method Room Air 04/02/24 08:29 BMI result Body Mass Index 23.6 Tobacco/Smoking Status: Tobacco use Status Tobacco use date assessed 04/02/24 04/02/24 08:41 Patient Tobacco Use Status Former Tobacco user 04/02/24 08:41 Tobacco use type Cigarette 04/02/24 08:41 e-Cigarette/Vaping Use Never Used 04/02/24 08:41 PHQ-9: PHQ-9 Score PHQ-9: Total score 5 04/02/24 08:50 Depression Screening Interpretation: Negative Thrive Assessment: Date of Thrive Assessment Date Thrive assessed 09/29/23 04/02/24 08:41 Const General: alert; No acute distress Eyes Conjunctivae: conjunctivae normal Resp Auscultation: clear to auscultation bilaterally Cardio Rate: regular rate Rhythm: regular rhythm GI Inspection: Yes normal to inspection Extrem General: Yes normal to inspection and No edema Coding Level of Care Code Est Pt Level 4 (30386) Diagnoses Tremor R25.1 Hypercalcemia E83.52 Hyperthyroidism E05.90 Anxiety, generalized F41.1 Primary hypertension I10 Hypertension type: primary hypertension High cholesterol E78.00 Hypokalemia E87.6 Assessment & Plan Assessment & Plan (1) Tremor: Code(s): R25.1 - Tremor, unspecified Category: Medical Plan: Workup done revealing hypokalemia with mild hyponatremia and mild elevation of the calcium. Hypokalemia prescription sent but due to delay in male medication has not been received. (2) Hypercalcemia: Code(s): E83.52 - Hypercalcemia Category: Medical Plan: Mild calcium elevation continue to monitor (3) Hyperthyroidism: Code(s): E05.90 - Thyrotoxicosis, unspecified without thyrotoxic crisis or storm Category: Medical Plan: Normal thyroid test (4) Anxiety, generalized: Code(s): F41.1 - Generalized anxiety disorder Category: Medical Plan: Continue to monitor (5) Hypertension: Code(s): I10 - Essential (primary) hypertension Category: Medical Qualifiers: Hypertension type: primary hypertension Qualified Code(s): I10 - Essential (primary) hypertension Plan: Continue with blood pressure medication. Decrease salt intake and exercise takes metoprolol 200 mg once a day losartan 100 mg once a day and amlodipine 5 mg once a day (6) High cholesterol: Code(s): E78.00 - Pure hypercholesterolemia, unspecified Category: Medical Plan: Avoid fried foods, chicken skin, eggs, butter margarine, pastries and meat. Be it pork or beef they have a lot of cholesterol patient on pravastatin 80 mg once a day (7) Hypokalemia: Code(s): E87.6 - Hypokalemia Category: Medical Plan: Patient is expecting to receive the potassium tomorrow. repeat testing in 1 week Plan - Prescribe a longer-acting anxiety medication to be taken at night to aid in both anxiety management and sleep. - Continue use of current short-acting anxiety medication on an as-needed basis. - Initiate potassium replacement therapy, and plan for follow-up blood work a week post-initiation to evaluate efficacy and potassium levels. - Refer to nephrology for further assessment of electrolyte imbalances, particularly hyponatremia and hypokalemia, in the absence of diuretic use. - Encourage safe mobility strategies to prevent falls, and discuss potential use of a walker for better stability. - Consider planning for future senior care placement to ensure safe and sustainable care when needed. - Review influenza and COVID-19 vaccination status and update as necessary. Orders: Orders Basic Metabolic Panel 1 Week E87.6 - Hypokalemia Referrals Nephrology Referral E87.6 - Hypokalemia Medications: New mirtazapine 7.5 mg PO BEDTIME 30 tabs 0RF F41.1 - Generalized anxiety disorder
== END 2024-04-02 09:28 | disposition home or self-care (01) ==
PROVIDERS: PCP Internal Medicine; Visit Provider Internal Medicine
DX: R25.1 Tremor, unspecified (principal); E83.52 Hypercalcemia; E05.90 Thyrotoxicosis, unspecified without thyrotoxic crisis or storm; F41.1 Generalized anxiety disorder; I10 Essential (primary) hypertension; E78.00 Pure hypercholesterolemia, unspecified; E87.6 Hypokalemia

== ENCOUNTER → 2024-04-02 08:22 | Outpatient (BNVA) | payer MEDICARE, OTHER, SELFPAY | PROVIDERS: PCP Internal Medicine; Visit Provider Internal Medicine | DX: R25.1 Tremor, unspecified (principal); E83.52 Hypercalcemia; E05.90 Thyrotoxicosis, unspecified without thyrotoxic crisis or storm; F41.1 Generalized anxiety disorder; E78.00 Pure hypercholesterolemia, unspecified; E87.6 Hypokalemia | CPT/HCPCS: 96127; 99212 ==

== ENCOUNTER 2024-04-12 09:13 | Outpatient (AMB) | payer MEDICARE, OTHER, SELFPAY ==
--- NOTE | 2024-04-12 09:32 | HO.NEPHOV ---
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 Required: No Accompanied by: Daughter Allergies hydrochlorothiazide Adverse Reaction (Intermediate, Verified 04/12/24 09:35) hypercalcemia Medication List - Last Reconciled 04/12/24 by Amado Medeiros MD alprazolam 0.25 mg PO DAILY PRN 90 days amlodipine 5 mg PO DAILY cholecalciferol (vitamin D3) 25 mcg PO DAILY folic acid 1 mg PO DAILY 90 days glucosamine-chondroitin 250-200 mg (Osteo Bi-Flex) 2 tabs PO DAILY losartan 100 mg PO DAILY 90 days melatonin 10 mg PO BEDTIME methimazole 5 mg PO DAILY 90 days metoprolol succinate ER 200 mg PO DAILY 90 days mirtazapine 7.5 mg PO BEDTIME omeprazole 40 mg PO DAILY 90 days potassium chloride ER (Klor-Con M) 20 mEq PO BID pravastatin 80 mg PO BEDTIME Do you need a note to return to daycare/school/sports/work: No HPI Comments Details: 88-year-old woman with a history of longstanding hypertension. She was found to have hypokalemia and potassium supplementation has been added. Two years ago she had an episode of hypokalemia. She had no alkalosis. She is not on any diuretics. No diarrhea PFSH Medical History Multinodular goiter (nontoxic) Arthritis Hx of flexible sigmoidoscopy COVID-19 vaccine series completed Gastric ulcer Hyperthyroidism History of blood transfusion High cholesterol Hypertension Surgical History Hx of cataract extraction History of tonsillectomy S/P JEFF-BSO History of endoscopy Social History Household Members: Family Household Members Other:: 2 family home-daughter lives on 1st floor Housing: House Are you a primary home child care provider to a significant other at home: No Do you presently have visiting nurse or other home services: No Alcohol intake: current Alcohol type: wine Patient Tobacco Use Status: Former Tobacco user Tobacco use type: Cigarette e-Cigarette/Vaping Use: Never Used Second Hand Smoke Exposure: No service: No Current occupational status: retired Cognitive needs: Yes (cane) Hearing needs: No Vision needs: Yes (Reading glasses) Review of Systems Const Denies fever(s) and Denies weight loss Card Denies chest pain Resp Denies cough and Denies hemoptysis GI Denies abdominal pain, Denies diarrhea and Denies nausea Musc Denies back pain Neuro Denies focal weakness Physical Exam Vital Signs: Last Vital Signs Pulse 86 04/12/24 09:33 BP 136/90 H 04/12/24 09:33 Pulse Ox 97 04/12/24 09:33 Oxygen Delivery Method Room Air 04/12/24 09:33 BMI result Body Mass Index 22.7 Comfortable Neck supple no JVD. Lungs entry equal no rales. Heart S1-S2 heard no gallop or rub. Abdomen soft nontender. Neuro alert awake oriented. No asterixis. Extremities no edema. Results Reviewed Nephrology Results: Hgb 14.3 g/dl (12.0-16.0) 03/26/24 WBC 6.0 X10*3/uL (4.8-10.8) 03/26/24 Plt Count 382 X10*3/uL (160-400) 03/26/24 Sodium 133 mmol/L (135-145) L 03/26/24 Potassium 3.1 mmol/L (3.3-5.1) L 03/26/24 Chloride 96 mmol/L (96-108) 03/26/24 Carbon Dioxide 26 mmol/L (22-29) 03/26/24 BUN 10 mg/dL (9-16) 03/26/24 Creatinine 0.71 mg/dL (0.5-1.4) 03/26/24 Calcium 10.3 mg/dL (8.4-10.2) H 03/26/24 Phosphorus 2.6 mg/dL (2.7-4.5) L 03/12/24 Urine Protein Negative mg/dL (Neg-Trace) 03/18/24 Assessment & Plan Assessment & Plan (1) Hypokalemia: Code(s): E87.6 - Hypokalemia Category: Medical (2) Hypercalcemia: Code(s): E83.52 - Hypercalcemia Category: Medical Plan With a history of resistant hypertension and hypokalemia hyperaldosteronism should be ruled out. I will check serum aldosterone and plasma renin activity. At the present time renal function stable. Blood pressure is better controlled with the current medications. Agree with potassium supplementation for now. Once the workup is completed I would consider adding spironolactone for the control blood pressure and to optimize serum potassium. Given her advanced age she and her daughter wants to be treated conservatively. They also wanted to stop pravastatin which I will defer to her and PCP Orders: Orders Basic Metabolic Panel Today E87.6 - Hypokalemia Chloride Urine Random Today E87.6 - Hypokalemia Cortisol, Free Today E87.6 - Hypokalemia Osmolality, Serum Today E87.6 - Hypokalemia Osmolality Urine Today E87.6 - Hypokalemia Sodium Urine Random Today E87.6 - Hypokalemia TSH reflex Free T4 Today E87.6 - Hypokalemia Potassium Urine Random Today E87.6 - Hypokalemia UA and rflx microscopic Today E87.6 - Hypokalemia Parathyroid Hormone Intact Today E83.52 - Hypercalcemia Renin Today E87.6 - Hypokalemia Aldosterone Today E87.6 - Hypokalemia Medications: Discontinued pravastatin Discontinued Reason: Patient Refused 80 mg PO BEDTIME 90 tabs 3RF E78.00 - Pure hypercholesterolemia, unspecified alprazolam Discontinued Reason: No Longer Medically Relevant 0.25 mg PO DAILY 90 days PRN 45 tabs 0RF anxiety F41.1 - Generalized anxiety disorder Coding Level of Care Code New Pt Level 4 (20710) Diagnoses Hypokalemia E87.6 Hypercalcemia E83.52
[2024-04-12 09:33] VITALS: BP 136/90; PULSE 86; O2SAT 97; BMI 22.7
== END 2024-04-12 09:54 | disposition home or self-care (01) ==
PROVIDERS: PCP Internal Medicine; Visit Provider Internal Medicine Hypertension Specialist
DX: E87.6 Hypokalemia (principal); E83.52 Hypercalcemia
CPT/HCPCS: 99204

== ENCOUNTER 2024-04-12 09:59 | Outpatient (REF) | payer MEDICARE, OTHER, SELFPAY ==
[2024-04-12 11:22] LABS: Anion Gap 12 (12-20); Blood Urea Nitrogen 6 mg/dL (9-16); Calcium 9.9 mg/dL (8.4-10.2); Carbon Dioxide 24 mmol/L (22-29); Chloride 102 mmol/L (96-108); Estimated Glomerular Filt Rate > 60; Glucose Random 108 mg/dL (60-115); Potassium 4.4 mmol/L (3.3-5.1); Sodium 134 mmol/L (135-145)
[2024-04-12 11:35] LABS: Osmolality, Serum 285 mosm/kg (281-305)
[2024-04-12 11:41] LABS: TSH reflex Free T4 0.94 uIU/mL (0.32-4.0)
[2024-04-12 12:18] LABS: Parathyroid Hormone Intact 124.4 pg/mL (8.7-77.1)
[2024-04-12 17:06] LABS: Appearance Urine Clear; Color Urine Yellow; Glucose Urine UA Negative (Negative); Leukocyte Esterase Urine Negative (Negative); Nitrite Urine Negative (Negative); Specific Gravity - Urine <= 1.005 (1.005-1.025); Urine Blood Negative (Negative); Urine Ketones Negative (Negative); Urine Protein Negative (Neg-Trace)
[2024-04-12 17:28] LABS: Potassium Urine Random 18.5 mmol/L; Sodium Urine Random < 20.0 mmol/L
[2024-04-12 17:54] LABS: Osmolality Urine 125 mosm/kg (373-1093)
[2024-04-18 17:28] LABS: Renin 0.73 ng/mL/h (0.25-5.82)
[2024-04-23 22:59] LABS: Cortisol, Free 0.99 mcg/dL
== END 2024-04-12 10:00 | disposition home or self-care (01) ==
LOC: HO.10HDL 09:59
PROVIDERS: Visit Provider Internal Medicine Hypertension Specialist
DX: E87.6 Hypokalemia (principal); E83.52 Hypercalcemia
CPT/HCPCS: 36415; 80048; 81003; 82088; 82436; 82530; 83930; 83935; 83970; 84133; 84244; 84300; 84443; 99202

== ENCOUNTER 2024-04-27 09:03 | Outpatient (AMB) | payer MEDICARE, OTHER, SELFPAY ==
[2024-04-27 09:07] VITALS: BP 120/78; PULSE 79; O2SAT 97
--- NOTE | 2024-04-27 09:07 | AM.OFFWIN_ITS ---
Intake Vital Signs 04/27/24 09:07 Weight 126 lb BP 120/78 Blood Pressure Location Lt brachial Position Sitting Pulse 79 Pulse Source Pulse Oximeter Pulse Oximetry (%) 97 Oxygen Delivery Method Room Air Intake Visit Reasons: EP ?wax removal/unable to hear/sore throat Intake Note: Patient here for bilat ear blockage that has been going on for about 1 week. Patient Tobacco Use Status: Former Tobacco user Allergies amoxicillin Adverse Reaction (Intermediate, Verified 04/27/24 09:13) Diarrhea hydrochlorothiazide Adverse Reaction (Intermediate, Verified 04/27/24 09:12) hypercalcemia Do you need a note to return to daycare/school/sports/work: No HPI EP ?wax removal/unable to hear/sore throat HPI Details Patient is an 88-year-old female comes to the walk-in clinic complaining of blockage sensation for the last week to the left more than the right ear, as well as decreased hearing. Patient presents with her daughter. She denies ear pain, headache, fever chills, treated from the ears, nausea vomiting, recent upper respiratory infection, or other significant associated symptoms. [facility] Medical History Multinodular goiter (nontoxic) Arthritis Hx of flexible sigmoidoscopy COVID-19 vaccine series completed Gastric ulcer Hyperthyroidism History of blood transfusion High cholesterol Hypertension Surgical History Hx of cataract extraction History of tonsillectomy S/P JEFF-BSO History of endoscopy Social History Household Members: Family Household Members Other:: 2 family home-daughter lives on 1st floor Housing: House Are you a primary care professionals to a significant other at home: No Do you presently have visiting nurse or other home services: No Alcohol intake: current Alcohol type: wine Patient Tobacco Use Status: Former Tobacco user Tobacco use type: Cigarette e-Cigarette/Vaping Use: Never Used Second Hand Smoke Exposure: No service: No Current occupational status: retired Cognitive needs: Yes (cane) Hearing needs: No Vision needs: Yes (Reading glasses) Review of Systems Const All systems reviewed & are unremarkable except as noted in HPI and below Physical Exam Vital Signs: Last Vital Signs Pulse 79 04/27/24 09:07 BP 120/78 04/27/24 09:07 Pulse Ox 97 04/27/24 09:07 Oxygen Delivery Method Room Air 04/27/24 09:07 HEENT Ears: external ears normal, Abnormal EAC present excessive cerumen (Left canal obstructed, mild amount in the right side), TM abnormal (Right side hazy) with loss of landmarks and unable to visualize TM on the left Office Procedures Cerumen Removal From which ear canal was the cerumen removed: bilateral Removal: irrigation and cerumen loop/spoon Notes: patient tolerated procedure well, no complications and ear canal clear [id number] Wax Removal by Spoon/Curette Assessment & Plan Assessment & Plan (1) Cerumen impaction: Code(s): H61.20 - Impacted cerumen, unspecified ear Qualifiers: Laterality: left Qualified Code(s): H61.22 - Impacted cerumen, left ear Plan: Patient presents with her daughter for cerumen impaction on the left side, mainly removed with ear lavage by the MA, with right side minimal and removed with a curette loop. No complications with the procedure and patient had improved hearing to the left side. After irrigation, there was some maceration to the left external canal at the 6 o'clock position. I wrote her for some Acetasol- HC to help this heal. There was some serous otitis B/L, which can be managed with Flonase, heat to the ears and gentle massage, in his the likely cause to persistent decreased hearing to the right side. Follow up as needed if symptoms persist or worsen. Medications: New hydrocortisone-acetic acid 1-2 % apply to (cotton) wick; replace wick every 24 hours 4 drps otic (ears) Q6H 10 mL 0RF Coding Level of Care Code Est Pt Level 4 (43731) Diagnoses Impacted cerumen of left ear H61.22 Laterality: left CPT Codes Office Procedure - CPT: 90680-Oph Wax Removal by Spoon/Curette ([id number])
== END 2024-04-27 10:21 | disposition home or self-care (01) ==
PROVIDERS: PCP Internal Medicine; Visit Provider Physician Assistant Medical
DX: H61.22 Impacted cerumen, left ear (principal)

== ENCOUNTER → 2024-04-27 09:03 | Outpatient (BNVA) | payer MEDICARE, OTHER, SELFPAY | PROVIDERS: PCP Internal Medicine; Visit Provider Physician Assistant Medical | DX: H61.22 Impacted cerumen, left ear (principal) | CPT/HCPCS: 69210; 99212 ==

== ENCOUNTER 2024-05-02 11:25 | Outpatient (AMB) | payer MEDICARE, OTHER, SELFPAY ==
--- NOTE | 2024-05-02 11:25 | HO.NEPHOV_ITS ---
Vital Signs 05/02/24 11:26 Height 5 ft 2 in Weight 126 lb BMI 23.0 Intake Visit Reasons: Proteinuria-Conf w/daughter Dye Machine Tender Required: No Accompanied by: Daughter Allergies amoxicillin Adverse Reaction (Intermediate, Verified 05/02/24 11:26) Diarrhea hydrochlorothiazide Adverse Reaction (Intermediate, Verified 05/02/24 11:26) hypercalcemia Medication List - Last Reconciled 05/02/24 by Amado Medeiros MD amlodipine 5 mg PO DAILY cholecalciferol (vitamin D3) 25 mcg PO DAILY folic acid 1 mg PO DAILY 90 days glucosamine-chondroitin 250-200 mg (Osteo Bi-Flex) 2 tabs PO DAILY hydrocortisone-acetic acid 1-2 % 4 drps otic (ears) Q6H methimazole 5 mg PO DAILY 90 days metoprolol succinate ER 200 mg PO DAILY 90 days mirtazapine 7.5 mg PO BEDTIME omeprazole 40 mg PO DAILY 90 days potassium chloride ER (Klor-Con M) 20 mEq PO DAILY HPI Comments Details: 88-year-old woman with a history of longstanding hypertension. She was found to have hypokalemia and potassium supplementation has been added. Two years ago she had an episode of hypokalemia. She had no alkalosis. She is not on any diuretics. No diarrhea 05/02/2024 Telehealth visit discussed with patient and daughter All meds reviewed [facility] Medical History Multinodular goiter (nontoxic) Arthritis Hx of flexible sigmoidoscopy COVID-19 vaccine series completed Gastric ulcer Hyperthyroidism History of blood transfusion High cholesterol Hypertension Surgical History Hx of cataract extraction History of tonsillectomy S/P JEFF-BSO History of endoscopy Social History Household Members: Family Household Members Other:: 2 family home-daughter lives on 1st floor Housing: House Are you a primary career placement specialist to a significant other at home: No Do you presently have visiting nurse or other home services: No Alcohol intake: current Alcohol type: wine Patient Tobacco Use Status: Former Tobacco user Tobacco use type: Cigarette e-Cigarette/Vaping Use: Never Used Second Hand Smoke Exposure: No service: No Current occupational status: retired Cognitive needs: Yes (cane) Hearing needs: No Vision needs: Yes (Reading glasses) Physical Exam Vital Signs: BMI result Body Mass Index 23.0 Telehealth Telehealth Telehealth Platform: Telephone Location of provider rendering services: practice address Location of patient: address on file Patient Identification confirmed using: Name, : Yes Telehealth method: voice only Results Reviewed Nephrology Results: Hgb 14.3 g/dl (12.0-16.0) 03/26/24 WBC 6.0 X10*3/uL (4.8-10.8) 03/26/24 Plt Count 382 X10*3/uL (160-400) 03/26/24 Sodium 134 mmol/L (135-145) L 04/12/24 Potassium 4.4 mmol/L (3.3-5.1) 04/12/24 Chloride 102 mmol/L (96-108) 04/12/24 Carbon Dioxide 24 mmol/L (22-29) 04/12/24 BUN 6 mg/dL (9-16) L 04/12/24 Creatinine 0.61 mg/dL (0.5-1.4) 04/12/24 Calcium 9.9 mg/dL (8.4-10.2) 04/12/24 PTH Intact 124.4 pg/mL (8.7-77.1) H 04/12/24 Urine Protein Negative mg/dL (Neg-Trace) 04/12/24 Assessment & Plan Assessment & Plan (1) Hypokalemia: Code(s): E87.6 - Hypokalemia Category: Medical (2) Hypercalcemia: Code(s): E83.52 - Hypercalcemia Category: Medical Plan With a history of resistant hypertension and hypokalemia hyperaldosteronism should be ruled out. Aldosterone level 14 PRA was 0.73. She is still on potassium supplementation Not on diuretics. A renal function stable. Blood pressure is better controlled with the current medications. Agree with potassium supplementation for now. Given her advanced age she and her daughter wants to be treated conservatively. Coding Level of Care Code Tele Est Pt Level 2 (24865) Diagnoses Hypokalemia E87.6 Hypercalcemia E83.52
[2024-05-02 11:26] VITALS: BMI 23.0
== END 2024-05-02 13:24 | disposition home or self-care (01) ==
PROVIDERS: PCP Internal Medicine; Visit Provider Internal Medicine Hypertension Specialist
DX: E87.6 Hypokalemia (principal); E83.52 Hypercalcemia
CPT/HCPCS: 98016

== ENCOUNTER → 2024-05-02 11:25 | Outpatient (BNVA) | payer MEDICARE, OTHER, SELFPAY | PROVIDERS: PCP Internal Medicine; Visit Provider Internal Medicine Hypertension Specialist ==

== ENCOUNTER 2024-06-07 11:11 | Outpatient (AMB) | payer MEDICARE, OTHER, SELFPAY ==
--- NOTE | 2024-06-07 11:12 | MHC.PC.OV ---
Intake Visit Reasons: Hypokalemia, generalized anxiety disorder Allergies amoxicillin Adverse Reaction (Intermediate, Verified 06/07/24 11:12) Diarrhea hydrochlorothiazide Adverse Reaction (Intermediate, Verified 06/07/24 11:12) hypercalcemia Tobacco use date assessed: 06/07/24 Fall risk assessment: No Falls in past year Last assessed Fall Risk: 06/07/24 Dental Screening Dental Screen Date: 06/07/24 Did you have a dental visit in the last 12 months?: Yes Did you have a dental problem in the last 6 months where you did not have access to dental care?: No Was dental information given to patient?: Patient has dentist HPI Hypokalemia, generalized anxiety disorder HPI Details diarrhea since march The patient is an 88-year-old female presenting with concerns of persistent watery stools following an antibiotic course initiated in March. The diarrhea began shortly after starting the antibiotic, prescribed for a problem with her ears. Although the diarrhea is not frequent, occurring around twice a week, each instance comprises watery stools with no control over it. The episodes started as early as late March or April, following antibiotic usage, and have persisted. There have been no changes in her thyroid medications. She recently moved to assisted living, where her diet includes coffee, toast for breakfast, and occasional waffles or pancakes, and she reports not consuming dairy with the exception of cheese occasionally. There is also concern regarding her tiredness during these episodes, and she is not consuming electrolyte-rich fluids. The patient has no past medical history of similar bowel issues, nor does she report any blood in her stools despite existing hemorrhoids. The patient does use potassium supplementation due to her existing hypertension and received treatment for her ears which might have involved anti-inflammatory medications. Despite the dietary changes related to moving to assisted living facilities, the symptoms have been consistent, raising concern for potential C. difficile infection post-antibiotic treatment. - Gastrointestinal: Reports persistent watery stools since antibiotic treatment. Denies blood in stools on general review, except associated with hemorrhoids. - General: Reports feeling tired during diarrhea episodes. [facility] Medical History Multinodular goiter (nontoxic) Arthritis Hx of flexible sigmoidoscopy COVID-19 vaccine series completed Gastric ulcer Hyperthyroidism History of blood transfusion High cholesterol Hypertension Surgical History Hx of cataract extraction History of tonsillectomy S/P JEFF-BSO History of endoscopy Social History Household Members: Family Household Members Other:: 2 family home-daughter lives on 1st floor Housing: House Are you a primary health care analyst to a significant other at home: No Do you presently have visiting nurse or other home services: No Alcohol intake: current Alcohol type: wine Patient Tobacco Use Status: Former Tobacco user Tobacco use type: Cigarette e-Cigarette/Vaping Use: Never Used Second Hand Smoke Exposure: No service: No Current occupational status: retired Cognitive needs: Yes (cane) Hearing needs: No Vision needs: Yes (Reading glasses) Questionnaire PHQ-9 Over the last 2 weeks, how often have you been bothered by any of the following problems? 1. Little interest or pleasure in doing things: several days 2. Feeling down, depressed, or hopeless: several days 3. Trouble falling or staying asleep, or sleeping too much: not at all 4. Feeling tired or having little energy: nearly every day 5. Poor appetite or overeating: not at all 6. Feeling bad about yourself - or that you are a failure or have let yourself or your family down: not at all 7. Trouble concentrating on things, such as reading the newspaper or watching television: not at all 8. Moving or speaking so slowly that other people could have noticed. Or the opposite - being so fidgety or restless that you have been moving around a lot more than usual: not at all 9. Thoughts that you would be better off or of hurting yourself in some way: not at all Total score: 5 Depression Screening Interpretation: Negative Depression Screening Done: Yes 68506 - PHQ-9 Billing: Yes Source: Developed by Drs. Drake Love, Lidia Muniz, Zak Crandall and colleagues, with an educational esperanza from [employer]. Thrive Questionnaire Date Thrive assessed: 06/07/24 I am a: Parent/Caregiver What is your living situation today?: I have a steady place to live Within the past 12 months, did the food you bought not last and you didn't have the money to get more?: Never true Within the past 12 months, did you worry whether your food would run out before you got money to buy more?: Never true Do you have trouble paying for medicines?: No Do you have trouble getting transportation to medical appointments?: No Do you have trouble paying your heating and electricity bill?: No Do you have trouble taking care of your child, family member or friend?: No Do you have trouble with day-to-day activities such as bathing, preparing meals, shopping, managing finances, etc.?: No Are you currently unemployed and looking for a job?: No Are you interested in more education?: No Currently or been in a relationship where the following occur: No concerns reported THRIVE Score: 0 AUDIT C Alcohol Use Questionnaire (AUDIT-C) 1. How often do you have a drink containing alcohol?: Never 3. How often do you have six or more drinks on one occasion?: Never Total Score: 0 SWATI-7 AMB Questionnaire SWATI-7 Date SWATI - 7 assessed: 06/07/24 Feeling nervous, anxious, or on edge: 0 = Not at all Not being able to stop or control worryin = Not at all Worrying too much about different things: 0 = Not at all Trouble relaxin = Not at all Being so restless that it is hard to sit still: 0 = Not at all Becoming easily annoyed or irritable: 0 = Not at all Feeling afraid as if something awful might happen: 0 = Not at all Total SWATI-7 score (0-4 normal; 5-9 mild; 10-14 moderate; 15-21 severe): 0 Source: Developed by Drs. Drake Love, Lidia Muniz, Zak Crandall and colleagues, with an educational esperanza from [employer]. Physical exam (Primary Care) Tobacco/Smoking Status: Tobacco use Status Tobacco use date assessed 06/07/24 06/07/24 11:15 Patient Tobacco Use Status Former Tobacco user 06/07/24 11:15 Tobacco use type Cigarette 06/07/24 11:15 e-Cigarette/Vaping Use Never Used 06/07/24 11:15 PHQ-9: PHQ-9 Score PHQ-9: Total score 5 06/07/24 11:15 Depression Screening Interpretation: Negative Thrive Assessment: Date of Thrive Assessment Date Thrive assessed 06/07/24 06/07/24 11:15 Currently or been in a relationship where the following occur: No concerns reported Telehealth Telehealth Telehealth Platform: Telephone Location of provider rendering services: practice address Location of patient: address on file Patient Identification confirmed using: Name, : Yes Telehealth method: voice only Patient verbally consented to treatment: Yes Patient verbally consented to billing insurance company: Yes Patient informed of any privacy concerns related to visit: Yes Minutes spent on Phone/Video with Pt.: 15 Coding Level of Care Code Tele Est Pt Level 3 (77883) Diagnoses Diarrhea R19.7 Additional Codes PHQ-9 - 40547 - PHQ-9 Billing: Yes ([id number]) Assessment & Plan Assessment & Plan (1) Diarrhea: Code(s): R19.7 - Diarrhea, unspecified Category: Medical Plan Probiotics recommended, specifically Culturelle or Florastor, as an initial treatment for approximately 7 days. Also advised stool testing, particularly for C. difficile infection, given the history of antibiotic usage and symptom persistence. Hydration emphasized by the use of electrolyte solutions such as Pedialyte and increased water intake.I discussed with the patient the likely post-antibiotic diarrheal episodes, potentially complicated by C. difficile infection, although the exact diagnosis will be confirmed following stool testing. I explained the importance of maintaining hydration to prevent complications from electrolyte loss due to diarrhea. Advised the inclusion of probiotics such as Culturelle or Florastor. The stool sample will be tested to rule out C. difficile infection, and the patient will be notified of the results as soon as available. I underlined that diarrhea is less frequent but still problematic due to its inconsistency and suggested Imodium if more frequent diarrhea occurs. Continued the current medication regimen, as there were no indicators warranting changes at the moment. I briefed the patient on monitoring her response to interventions and maintaining fluid intake. The follow-up plan included reviewing test results and reassessing the situation to decide the necessity for further gastrointestinal consultation. - Start taking Culturelle or Florastor (probiotic supplements) twice daily for the next seven days. - Stay hydrated with regular water intake and electrolyte solutions like Pedialyte. - Collect a stool sample for C. difficile testing as ordered. - Monitor diarrhea frequency and characteristics; use Imodium if advised for uncontrolled episodes. - Continue taking all current medications as prescribed. - Keep a record of bowel movements, noting specific times, consistency, and any associated symptoms. - Call back if symptoms persist or worsen or if new symptoms arise. Orders: Orders Leukocytes Stool Qualitative Today R19.7 - Diarrhea, unspecified Ova and Parasite Today R19.7 - Diarrhea, unspecified CDiff Gene PCR Today R19.7 - Diarrhea, unspecified Medications: New Lactobacillus rhamnosus GG (Culturelle) 1 cap PO BID 14 caps 0RF
--- OUTSIDE RECORDS SUMMARY | 2024-06-07 12:20 | XMS_ITS ---
Author Name [facility] Organization Unknown History of Medication Use Medication Directions Dispensed Refills Start Date End Date Stat us pravastatin (PRAVACHOL) 80 MG tablet 02/23/2024 active ofloxacin (FLOXIN) 0.3 % otic solution Administer 5 drops into both ears daily. 05/29/2024 active losartan (COZAAR) 100 MG tablet Take 100 mg by mouth daily. 03/31/2024 active predniSONE (DELTASONE) 10 MG tablet Take 40 mg (= 4 tablets) by mouth daily for 2 days, then 30 mg (= 3 tablets) daily for 2 days, then 20 mg (= 2 tablets) daily for 2 days, then 10 mg (= 1 tablet) daily for 2 days. Take with food. 05/14/2024 active mirtazapine (REMERON) 7.5 MG tablet Take 7.5 mg by mouth nightly. 04/02/2024 active folic acid (FOLVITE) 1 MG tablet Take 1 mg by mouth daily. 03/18/2024 active OMEprazole (PriLOSEC) 40 MG capsule Take 40 mg by mouth every morning before breakfast. 03/18/2024 active methimazole (TAPAZOLE) 5 MG tablet Take 5 mg by mouth daily. 03/31/2024 active metoPROLOL SUCCINATE (TOPROL-XL) 200 MG 24 hr tablet Take 200 mg by mouth daily. 03/25/2024 active potassium chloride (K-TAB) 20 MEQ CR tablet Take 20 mEq by mouth daily. 04/19/2024 active amLODIPine (NORVASC) 5 MG tablet Take 5 mg by mouth daily. 03/18/2024 active cyanocobalamin (VITAMIN B-12) 1000 MCG tablet Take 1,000 mcg by mouth daily. active Problems Problem Status Onset Date Problem Type Date of Resoluti on Source Bilateral chronic serous otitis media active EncounterDiagnosisAct [facility] Dysfunction of both eustachian tubes active EncounterDiagnosisAct [facility] Mixed hearing loss, bilateral active EncounterDiagnosisAct [facility]
--- OUTSIDE RECORDS SUMMARY | 2024-06-07 12:20 | XMS_ITS | Encounter Summary ---
Author Organization [facility] Address [address] [place] [address] [place] [address] Care Team Providers Care Product Engineer Name Role Phone Unavailable Primary Care Provider Unavailabl e Encounter Details Date Type Department Care Team (Latest Contact Info) Description 11/05/2018 Abstract [facility] Dental, Provider, DDS Social History Tobacco Use Types Packs/Day Years Used Date Smoking Tobacco: Never Assessed Comments Unknown Sex and Gender Information Value Date Recorded Sex Assigned at Female 02/14/2022 10:31 AM EDT Legal Sex Female 10:31 AM EDT Gender Identity Not on file Sexual Orientation Not on file documented as of this encounter Plan of Treatment Not on file documented as of this encounter Visit Diagnoses Not on filedocumented in this encounter
--- OUTSIDE RECORDS SUMMARY | 2024-06-07 12:20 | XMS_ITS | Clinical Summary ---
Author Organization [facility] Address [address] [place] [address] [address] [place] [address] Care Team Providers Care Material Liaison Name Role Phone Unavailable Primary Care Provider Unavailabl e Social History Tobacco Use Types Packs/Day Years Used Date Smoking Tobacco: Never Assessed Comments Unknown Sex and Gender Information Value Date Recorded Sex Assigned at Female 02/14/2022 10:31 AM EDT Legal Sex Female 10:31 AM EDT Gender Identity Not on file Sexual Orientation Not on file Plan of Treatment Health Maintenance Due Date Last Done Comments Depression Screening 1935 Alcohol/Substance Use Screening 1947 Tobacco Screening 1947 DTaP/Tdap/Td Vaccines (1 - Tdap) 1956 Pneumococcal Vaccine: 50+ Ye ars (1 of 1 - PCV) 08/22/1987 Zoster Vaccines (1 of 2) 08/22/1987 RSV Patients and Pa tients Aged 60 years or older (1 - 1-dose 75+ series) 2012 COVID-19 Vaccine ( - 2023-2 5 season) 2023 Influenza Vaccine (#1) 2023 HIB Vaccines Aged Out No longer eligi ble based on patient's age to complete this topic HPV Vaccines Aged Out No longer eligi ble based on patient's age to complete this topic Hepatitis A Vaccines Aged Out No long er eligible based on patient's age to complete this topic Hepatitis B Vaccines Aged Out No long er eligible based on patient's age to complete this topic IPV Vaccines Aged Out No longer eligi ble based on patient's age to complete this topic Meningococcal Vaccine Aged Out No deidra latesha eligible based on patient's age to complete this topic RSV under 20 months Aged Out No longe r eligible based on patient's age to complete this topic Rotavirus Vaccines Aged Out No longer eligible based on patient's age to complete this topic
--- OUTSIDE RECORDS SUMMARY | 2024-06-07 12:20 | XMS_ITS | Patient Health Record ---
Author Organization [facility] Address [address] [place] [address] Care Team Providers Care Carpenter Wooden Tank Erecting Name Role Phone Sunitha Matt MD Primary Care Provider Alfonzo Hawkins Jr Unavailable [phone] REASON FOR REFERRAL No Information SOCIAL HISTORY Sex Assigned At : Social History Observation Description Sex Assigned At Unknown PROBLEMS Problem Type ICD Code Onset Dates Problem Status W/U Status Risk SNOMED Code Notes Problem Gastric ulcer (K25.9) Active confirmed Gastric ulcer ([id number]) PLAN OF TREATMENT No Information Insurance Providers Payer Name Payer Address Payer Phone Subscriber Number Group Number Insured Name Patient Relationship to Insured Coverage Start Date Coverage End Date MEDICARE OF [place] [address] [place] [address] [id number] MARY BAER Self - patient is the insured [employer] [address] [place] [id number] MARY BAER Self - patient is the insured
--- OUTSIDE RECORDS SUMMARY | 2024-06-07 12:21 | XMS_ITS ---
Author Organization [facility] Address [address] [place] [address] Care Team Providers Care Circuit Breaker Mechanic Name Role Phone Sunitha Matt Primary Care Provider Alan Hancock Unavailable [phone] Encounters Encounter Location Date Provider Diagnosis [facility] [address] [place] [address] 02/13/2024 Alan Emery Plan Of Treatment Next Appt Details Provider Name:Alan Emery , 07/29/2024 03:00:00 PM, [address] [facility], [address], [place], [address], Progress Notes * Libby BAERDOB:1935 ([age] yo F)Acc No.[id number]:02/13/2024 Progress Note Patient:?Libby BAER Provider:?Alan Emery DPM :1935???Age:88 Y???Sex:Female D ate:02/13/2024 Address:[address] [place], [place] [id number] Pcp:Sunitha Matt Subjective: * Chief Complaints: * ??? * Medical History:? Objective: * Vitals:? Assessment: Plan: * Treatment: * Images: * The named appointment provid er may or may not be the originator of this progress note, and it is not deemed complete until electronically signed by the appointment provider. Sign off status: Pending * Provider:?Alan Emery DPM Date:?2023 Generated for Jt joe/Gopal/Gaby on:?06/07/2024 12:20 PM EST
--- OUTSIDE RECORDS SUMMARY | 2024-06-07 12:21 | XMS_ITS | Encounter Summary ---
Author Organization [facility] Address [address] [place] [address] Care Team Providers Care Print Line Inspector Name Role Phone Sunitha Matt MD Primary Care Provider [phone] Reason for Visit * Reason Comments Ear Fullness Hearing Loss Pt daughter says she can not hear well from both ears Encounter Details Date Type Department Care Team (Late st Contact Info) Description 05/14/2024 1:15 PM EST Office Visit [facility] [address], [address] [place] [phone] Betsy Drake PA-C [address] [place] [id number] Bilateral chronic serous otitis media (Primary Dx); Dysfunction of both eustachian tubes Social History Tobacco Use Types Packs/Day Years Used Date Smoking Tobacco: Never Smokeless Tobacco: Never Tobacco Cessation:Counseling Given: Not Answered Alcohol Use Standard Drinks/Week Comments Never 0 (1 standard drink = 0.6 oz pur e alcohol) Sex and Gender Information Value Date Recorded Sex Assigned at Not on file Gender Identity Female 05/14/2024 11:09 AM EST Sexual Orientation Not on file documented as of this encounter Last Filed Vital Signs Vital Sign Reading Time Taken Comments Blood Pressure - - Pulse - - Temperature - - Respiratory Rate - - Oxygen Saturation - - Inhaled Oxygen Concentration - - Weight 56.7 kg (125 lb) 05/14/2024 1:28 PM EST Height 160 cm (5' 3 ) 05/14/2024 1:28 PM EST Body Mass Index 22.14 05/14/2024 1:28 PM EST documented in this encounter Progress Notes * Betsy Drake PA-C - 05/14/2024 1:15 PM EST Images from the original note were not included. [address] [facility], [address] [facility] [place] [address] Loc: [phone] Encounter Date: 05/14/2024 History of Present Illness: Libby Astorga is a 88 y.o. female who presents today for Chief Complaint Patient presents with Ear Fullness Hearing Loss Pt daughter says she can not hear well from both ears . She had a cold/sinus infection. She was treated with amoxicillin. She did not get better. She went to urgent care and had wax removed and an ear infection. She was prescribed a drop, but never got it. No pain. No prior ear problems. Physical Exam ENT Physical Exam Constitutional Appearance: patient appears well-developed and well-nourished, Communication/Voice: vocal quality normal; Head and Face Appearance: head appears normal and face appears atraumatic; Palpation: no sinus tenderness present; no TMJ crepitus noted; TMJ not tender bilaterally; Salivary: glands normal; Ear Auricles: right auricle normal; left auricle normal; Ear Canals: right ear canal normal; left ear canal normal; Tympanic Membranes: right tympanic membrane normal; left tympanic membrane normal; Nose External Nose: nares patent bilaterally; nasal discharge not visible; Internal Nose: nasal mucosa normal; septum normal; bilateral inferior turbinates normal; Oral Cavity/Oropharynx Lips: normal; Teeth: no trismus noted; Gums: gingiva normal; Tongue: normal; Oral mucosa: normal; Hard palate: normal; Soft palate: normal; Tonsils: normal; Posterior pharyngeal wall: normal; Neck Neck: neck normal; neck palpation normal; normal range of motion; Respiratory Inspection: breathing unlabored; Lymphatic Palpation: lymph nodes normal; Neurovestibular Mental Status: alert and oriented; Psychiatric: mood normal; affect is appropriate; Cranial Nerves: cranial nerves intact; Visit Orders. 1. Bilateral chronic serous otitis media - predniSONE (DELTASONE) 10 MG tablet; Take 40 mg (= 4 tablets) by mouth daily for 2 days, then 30 mg (= 3 tablets) daily for 2 days, then 20 mg (= 2 tablets) daily for 2 days, then 10 mg (= 1 tablet) daily for 2 days. Take with food. Dispense: 20 tablet; Refill: 0 2. Dysfunction of both eustachian tubes Past Medical History History reviewed. No pertinent past medical history. History reviewed. No pertinent surgical history. History reviewed. No pertinent family history. Social History Tobacco Use Smoking status: Never Smokeless tobacco: Never Substance Use Topics Alcohol use: Never Drug use: Never Medication List Current Outpatient Medications: amLODIPine (NORVASC) 5 MG tablet, Take 5 mg by mouth daily., Disp: , Rfl: cyanocobalamin (VITAMIN B-12) 1000 MCG tablet, Take 1,000 mcg by mouth daily., Disp: , Rfl: folic acid (FOLVITE) 1 MG tablet, Take 1 mg by mouth daily., Disp: , Rfl: losartan (COZAAR) 100 MG tablet, Take 100 mg by mouth daily., Disp: , Rfl: methimazole (TAPAZOLE) 5 MG tablet, Take 5 mg by mouth daily., Disp: , Rfl: metoPROLOL SUCCINATE (TOPROL-XL) 200 MG 24 hr tablet, Take 200 mg by mouth daily., Disp: , Rfl: mirtazapine (REMERON) 7.5 MG tablet, Take 7.5 mg by mouth nightly., Disp: , Rfl: OMEprazole (PriLOSEC) 40 MG capsule, Take 40 mg by mouth every morning before breakfast., Disp: , Rfl: potassium chloride (K-TAB) 20 MEQ CR tablet, Take 20 mEq by mouth daily., Disp: , Rfl: predniSONE (DELTASONE) 10 MG tablet, Take 40 mg (= 4 tablets) by mouth daily for 2 days, then 30 mg(= 3 tablets) daily for 2 days, then 20 mg (= 2 tablets) daily for 2 days, then 10 mg (= 1 tablet) daily for 2 days. Take with food., Disp: 20 tablet, Rfl: 0 Allergies No Known Allergies Procedure Assessment & Plan Libby was seen today for ear fullness and hearing loss. Diagnoses and all orders for this visit: Bilateral chronic serous otitis media - predniSONE (DELTASONE) 10 MG tablet; Take 40 mg (= 4 tablets) by mouth daily for 2 days, then 30 mg (= 3 tablets) daily for 2 days, then 20 mg (= 2 tablets) daily for 2 days, then 10 mg (= 1 tablet) daily for 2 days. Take with food. Dysfunction of both eustachian tubes We discussed options for managing eustachian tube dysfunction including nasal steroid sprays, oral decongestants, oral steroids or myringotomy. She opted to try prednisone taper however would like toschedule a myringotomy if she is not improving. Betsy Drake PA-C documented in this encounter Plan of Treatment Upcoming Encounters Date Type Department Care Team (Late st Contact Info) Description 07/16/2024 9:00 AM EDT Clinical Support [facility] [address] [place] [phone] Kathe Joseph Au.D [address] [place] [phone] 07/16/2024 9:30 AM EDT Office Visit [facility] [address] [facility], [place] [address] Jeromy Cagle MD [address] [place] [phone] documented as of this encounter Visit Diagnoses Diagnosis Bilateral chronic serous otitis media- Primary Simple or unspecified chronic serous otitis media Dysfunction of both eustachian tubes documented in this encounter Care Teams Print Line Inspector Relationship Specialty Start Date End Date Sunitha Matt MD [address] [place] [address] Dr Stafford, [place] [address] PCP - General Internal Medicine 05/14/24 documented as of this encounter
--- OUTSIDE RECORDS SUMMARY | 2024-06-07 12:21 | XMS_ITS ---
Author Organization [facility] Address [address] [place] [address] Care Team Providers Care Admitting Office Escort Name Role Phone Sunitha Matt Primary Care Provider Alan Hancock Unavailable [phone] Allergies Allergen (clinical drug ingredient) Drug/Non Drug Allergy documented on EMR Reaction Allergy Type Onset Date Status lisinopril Zestril cough Drug Allergy Active REASON FOR VISIT At Risk Footcare, Painful Nail(s) aggrevated by shoes and causing difficulty standing/walking., Skin Problem Medications Medication SIG (Take, Route, Frequency, Duration) Notes Start Date End Date Status Omeprazole 40 MG 1 capsule 30 minutes before morning meal Orally Once a day for 30 day(s) Active Ciclopirox Olamine 0.77 % 1 application Externally Twice a day for 30 days Active Melatonin 5 MG 1 tablet in the even ing Orally Once a day for 30 day(s) Not-Taking Mirtazapine Active Vitamin D3 25 MCG (1000 UT) 1 tablet Orally Once a day for 30 day(s) Active amLODIPine Besylate 2.5 MG 1 tablet Orally Once a day for 30 day(s) Active Losartan Potassium-HCTZ Active Folic Acid 1 MG 1 tablet Orally Once a day for 30 day(s) Active Pravastatin Sodium A ctive Osteo Bi-Flex Regular Strength Active metroNIDAZOLE Active ALPRAZolam 0.25 MG 1 tablet Orally Twic e a day Active Metoprolol Succinate Not-Taking Glucosamine Not-Taki ng Calcium Not-Taking Fosamax Not-Taking Simvastatin Not-Taki ng Aspirin 81 MG 1 tablet Orally Once a day for 30 day(s) Not-Taking Diovan Not-Taking Social History Tobacco Use: Social History Observation Description Date Details (start date - stop date) Never Smoker NA - NA Tobacco use other than smoking: Question Answer Notes Are you an other tobacco user? No Tobacco Control (Standard) Question Answer Notes Tobacco use: Nonsmoker Additional Findings: Tobacco non-user Current no nsmoker AUDIT-C (Standard) Question Answer Notes Did you have a drink containing alcohol in the p ast year? 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, with unspecified presence of clinical manifestation I70.203 ; Tinea unguium B35.1 ; Pain in right toe(s) M79.674 ; Pain in left toe(s) M79.675 and Tinea pedis of both feet B35.3 Assessments Encounter Date Diagnosis (ICD Code) Assessment Notes Treatment Notes Treatment Clinical Notes Section Notes 05/07/2024 Atherosclerosis of kalispel artery of both lower extremities, with unspecified presence of clinical manifestation (ICD-10 - I70.203) 05/07/2024 Tinea unguium (ICD-10 - B35.1) 05/07/2024 Pain in right toe(s) (ICD-10 - M79.674) 05/07/2024 Pain in left toe(s) (ICD-10 - M79.675) 05/07/2024 Tinea pedis of both feet (ICD-10 - B35.3) Plan Of Treatment Pending Test Test Name Order Date [id number] NAIL, 6 OR MORE 05/07/2024 [id number]-UYGA SKIN LESIONS, 2 TO 4 05/07/19 25 Next Appt Details Follow Up: prn, Reason: Provider Name:Alan Emery , 07/29/2024 03:00:00 PM, [address], [address], [place], [address], Procedure Notes * Category Sub-Category Detail Notes Debride Nail 6-10 Nail debridement Due to the cl inical pathology outlined in the exam findings, performance of this nail treatment is medically necessary as its management by an unskilled/untrained nonprofessional would put this patients foot and overall health at risk. Therefore, debridement to affected nail(s), as described in exam ( TA, T1, T2, T3, T4, T5, T6, T7, T8, T9), was performed exclusively by the physician of record to reduce/remove overall nail length, girth, thickness, subungual debris, and necrotic tissue, by manual and/or electrical means through the use of a nail nipper and/or dremel-type radius grinder, to a more viable healthy nail plate or bed tissue 6-10 nails in total. Silver nitrate was used for any petechial bleeding as necessary. Definitive antifungal treatment options, both pharmaceutical and surgical, have been reviewed and discussed with the patient. The patient solely prefers the use of intermittent/as needed professional debridement services for their nail condition and understands the need for additional periodic treatments to maintain effectiveness in symptomatic relief - 28550 Keratoma Treatment Parring or Cutting o f Benign Hyperkeratotic Lesion(s) (-56) 2-4 Lesions - Due to the at risk nature of the patients medical condition as documented in the exam findings, performance of this keratoderma treatment is medically necessary as its management by an unskilled/untrained nonprofessional would put this patients foot and overall health at risk. Therefore, the benign hyperkeratotic lesions, ( 4) in total, locations as stated and described in the exam ( Medial, IPJ, TA, Medial, IPJ, T5, SUB MTH (s), 1, B/L ), were pared, and/or cut utilizing a sterile 15 blade, tissue nippers, and/or power dremel instrumentation by the physician of record - 67551, Q8 Progress Notes * Libby BAERDOB:1935 ([age] yo F)Acc No.[id number]:05/07/2024 Progress Note Patient:?Libby BAER Provider:?Alan Emery DPM :1935???Age:88 Y???Sex:Female D ate:05/07/2024 Address:[address] [place] [address] [phone] Pcp:Sunitha Matt Subjective: * Chief Complaints: * ???At Risk FootcarePainful N ail(s) aggrevated by shoes and causing difficulty standing/walking.Skin Problem * HPI: ???At Risk footcare:?Pt States Last PCP Visit:?Date?04/03/2024 ???Skin problems:?Treatments:?Medication (Ciclopirox Olamine 0.77 Cream), states adherence to recommended treatment application.? * ROS:?General/Constitutional:?Nausea?denies.?Vomiting?denies.?Hunger Thirst?denies.?Loss appetite?denies.?Chills?denies.?Fatigue?denies.?Fever?denies.?Night Sweats?denies.?Unexplained weight loss?denies.?Unexplained weight gain?denies.?HEENTM:?Dentures?denies.?Dizziness?denies.?Glasses/contacts?denies.?Retinopathy?de nies.?Blurred/double vision?denies.?TMJ?denies.?Discharge/drainage?denies.?Implants?denies.?Sore throat?denies.?Dental implants?denies.?Hard of hearing ?denies.?Difficulty chewing/swallowing/speaking?denies.?Nose bleeds?denies.?Sore mouth?denies.?Respiratory:?On Oxygen?denies.?Pneumonia/pleurisy?denies.?Bronchitis?denies.?Emphysema?denies.?C oughing?denies.?Cough blood?denies.?Shortness of breath?denies.?Wheezing?denies.?Cardiovascular:?Pacemaker?denies.?MVP?denies.?WPW?denies.?CHF?denies.?Heart attack?denies.?Septal defect?denies.?Rapid beat?denies.?Chest pain ?denies.?Atrial Fib.?denies.?Murmur/Palpitations?denies.?Gastrointestinal:?Hemorrhoids?denies.?Stomach/Abdominal pain?denies.?Dark blood stool?denies.?Irritable bowel ?denies.?Constipation?denies.?Diarrhea?denies.?Hematology:?Swelling?denies.?Clots?denies.?Varicose Veins?denies.?Bruising?denies.?Bleeding problem?denies.?Genitourinary:?Blood urine?denies.?Frequent/Painfu/urination/bladder control?denies.?Kidney stones?denies.?Infection (UTI)?denies.?Nephropathy?denies.?sex trans dis (STD)?denies.?Prostate?denies.?Musculoskeletal:?Hammertoes?admits.?Bunions?denies.?Back Pain?denies.?Muscle Cramps/ Resting?denies.?Muscle cramps / walking?denies.?Generalized aches and pains?denies.?Weakness?denies.?Integ.:?[place]?denies.?Scars?denies.?Corns/calluses?admits.?Ingrown nails?admits.?Painful nails?admits.?Open Sores?denies.?Rashes?denies.?Neurologic:?Difficulty sleeping?denies.?Brain disorder?denies.?Numbness?denies.?Balance trouble?denies.?Confusion?denies.?Fainting/blackouts?denies.?Tingling?denies.?Tr emors?denies.? * Medical History:? * Surgical History:?hysterecto my 1969tonsillectomy 1944cataract surgery OU 11/2012 * Hospitalization/Major Diagno stic Procedure:?Denies Past Hospitalization * Family History:?Mother: dece ased, arthritis, hypertension, diagnosed with Unspecified essential hypertension, Family history of arthritis.?Father: , stroke, hypertension, diagnosed with Unspecified essential hypertension, Unspecified cerebral artery occlusion with cerebral infarction.?Paternal Grand Mother: arthritis.?1 brother(s) , 3 sister(s) . 2 son(s) , 3 daughter(s) . .? * Social History:?Tobacco Use:?Tobacco use other than smoking?Are you an other tobacco user??No ?Tobacco Control (Standard)?Tobacco use:?Nonsmoker ?Additional Findings: Tobacco non-user?Current nonsmoker ???Drugs/Alcohol:?Drugs?Have you used drugs other than those for medical reasons in the past 12 months??No ???Miscellaneous:?Caffeine: no, none. ?Children: yes, 5. ?Exercise: yes, Reading. ?Marital status: . ?Occupation: Retired. ???Drug/Alcohol:?AUDIT-C (Standard)?Did you have a drink containing alcohol in the past year??No ?Points?0 ?Interpretation?Negative * Medications:?TakingALPRAZola m 0.25 MG Tablet 1 tablet Orally Twice a day metroNIDAZOLE amLODIPine Besylate 2.5 MG Tablet 1 tablet Orally Once a day Folic Acid 1 MG Tablet 1 tablet Orally Once a day Losartan Potassium-HCTZ Osteo Bi-Flex Regular Strength Pravastatin Sodium Vitamin D3 25 MCG (1000 UT) Tablet 1 tablet Orally Once a day Ciclopirox Olamine 0.77 % Cream 1 application Externally Twice a day Omeprazole 40 MG Capsule Delayed Release 1 capsule 30 minutes before morning meal Orally Once a day Mirtazapine Taking ALPRAZolam 0.25 MG Tablet 1 tablet Orally Twice a day Taking metroNIDAZOLE Taking amLODIPine Besylate 2.5 MG Tablet 1 tablet Orally Once a day Taking Folic Acid 1 MG Tablet 1 tablet Orally Once a day Taking Losartan Potassium-HCTZ Taking Osteo Bi-Flex Regular Strength Taking Pravastatin Sodium Taking Vitamin D3 25 MCG (1000 UT) Tablet 1 tablet Orally Once a day Taking Ciclopirox Olamine 0.77 % Cream 1 application Externally Twice a day Taking Omeprazole 40 MG Capsule Delayed Release 1 capsule 30 minutes before morning meal Orally Once a day Taking Mirtazapine Not-Taking/PRNMelatonin 5 MG Tablet 1 tablet in the evening Orally Once a day Simvastatin Fosamax Diovan Aspirin 81 MG Tablet Chewable 1 tablet Orally Once a day Calcium Glucosamine Metoprolol Succinate Medication List reviewed and reconciled with the patientNot-Taking/PRN Melatonin 5 MG Tablet 1 tablet in the evening Orally Once a day Not-Taking/PRN Simvastatin Not-Taking/PRN Fosamax Not-Taking/PRN Diovan Not-Taking/PRN Aspirin 81 MG Tablet Chewable 1 tablet Orally Once a day Not-Taking/PRN Calcium Not-Taking/PRN Glucosamine Not-Taking/PRN Metoprolol Succinate Medication List reviewed and reconciled with the patient * Allergies:?Zestril: coughyes [Allergies Verified] Objective: * Vitals:?Ht: 5 ft 3 in, Wt:13 0, BMI: 23.03, Shoe size:7, Wt-k.97 kg. * Examination: ???Vascular: ?DP PULSES (B):?0/4, LEFT,?1/4,?RIGHT.?PT PULSES (B):? 0/4, B/L.?CAPILLARY FILL TIME:? delayed, all digits, B/L.?TROPHIC CONDITION-TEXTURE/ELASTICITY/TURGOR/HAIR GROWTH (B):? decreased,?with sparse to absent hair growth, B/L.?TEMPERTURE GRADIENT (C):? decreased, cool to cool, proximal to distal, B/L.?PIGMENTATION:? pale, B/L.?EDEMA (C):?absent, B/L.?CLAUDICATION (C):?denies, B/L.?REST PAIN:?denies, B/L.?Nails: ?NAILS are:? Elongated, overgrown, dystrophic, lytic, greater than 3mm thick, discolored and friable with crumbly malodorous subungual debris, with pain on palpation,?TA, T1, T2, T3, T4, T5, T6, T7, T8, T9.?Dermatologic: ?SKIN FINDINGS:? Skin exam reveals Keratotic lesion(s) located at, Medial, IPJ, TA, Medial, IPJ, T5, SUB MTH (s), 1, B/L , Skin shows?approximately 60 percent LESS, sign(s) of, erythema, scaling, in a moccasin fashion, no fissure(s) present, B/L.? Assessment: * Assessment: 1.?Tinea unguium - B35.1???2 .?Atherosclerosis of kalispel artery of both lower extremities, with unspecified presence of clinical manifestation - I70.203 (Primary)???3.?Pain in right toe(s) - M79.674???4.?Pain in left toe(s) - M79.675 ??5.?Tinea pedis of both feet - B35.3???Specify :Acute problem, Stable Response to treatment - Improvement??? Plan: * Treatment: 2.?Tinea unguium?Procedure: [id number]-[id number] NAIL, 6 OR MORE * Procedures:?Debride Nail 6-10:?Nail debridement?Due to the clinical pathology outlined in the exam findings, performance of this nail treatment is medically necessary as its management by an unskilled/untrained nonprofessional would put this patients foot and overall health at risk. Therefore, debridement to affected nail(s), as described in exam (?TA, T1, T2, T3, T4, T5, T6, T7, T8, T9), was performed exclusively by the physician of record to reduce/remove overall nail length, girth, thickness, subungual debris, and necrotic tissue, by manual and/or electrical means through the use of a nail nipper and/or dremel-type radius grinder, to a more viable healthy nail plate or bed tissue 6- 10 nails in total. Silver nitrate was used for any petechial bleeding as necessary. Definitive antifungal treatment options, both pharmaceutical and surgical, have been reviewed and discussed with the patient. The patient solely prefers the use of intermittent/as needed professional debridement services for their nail condition and understands the need for additional periodic treatments to maintain effectiveness in symptomatic relief - 94208.?Keratoma Treatment:?Parring or Cutting of Benign Hyperkeratotic Lesion(s)?(-56) 2-4 Lesions - Due to the at risk nature of the patients medical condition as documented in the exam findings, performance of this keratoderma treatment is medically necessary as its management by an unskilled/untrained nonprofessional would put this patients foot and overall health at risk. Therefore, the benign hyperkeratotic lesions, ( 4) in total, locations as stated and described in the exam (?Medial,?IPJ,?TA,?Medial,?IPJ,?T5,?SUB MTH (s),?1,?B/L?), were pared, and/or cut utilizing a sterile 15 blade, tissue nippers, and/or power dremel instrumentation by the physician of record - 92310, Q8.? * Procedure Codes:?09263 DEBRI DE NAIL, 6 OR MORE, Modifiers: XS 49311 TRIM SKIN LESIONS, 2 TO 4, Modifiers: XS , Q8 * Preventive Medicine:? ??Counseling:?Discussion:?-12: Office or other outpatient visit for the evaluation and management of an established patient, which required a medically appropriate history and/or examination and STRAIGHTFORWARD level of MEDICAL DECISION MAKING, 1 SELF-LIMITED OR MINOR PROBLEM, MINIMAL- NO AMOUNT/COMPLEXITY OF DATA TO BE REVIEWED/ANALYZED, AND MINIMAL RISK OF COMPLICATION/MORBIDITY. The visit on the day of the encounter encompassed interpreting the data and educating the patient as to the nature of their condition, treatment options available according to their individual PMH, meds, allergies, and overall health/living conditions, as well as any potential risks or complications that may occur from a failure to adhere to, and participate in, the recommended course of therapy. The discussion included a complete verbal, and/or written explanation of the examination results, any x-rays taken, the proposed diagnosis, and outline of the treatment plan. A schedule for future care needs was also explained. The patient verbalized an understanding of the instructions at this time and agreed to be an active participant in their treatment. If the patient should think of any questions or concerns after the visit, I have encouraged the patient to call the office.?Tinea Pedis:?Given recent successful results to treatment, The patient is to cont the rx cream as directed.? ??Screening/Special Tests:?Fall Risk?Screening:?No falls in the past year ?FALLS: Screening for Future Fall Risk?Have you had any falls with injury in the past year??No * Follow Up:?prn * Images: * Sign off status: Completed true * Provider:?Alan Emery DPM Date:?2024 Generated for Jt joe/Gopal/Gaby on:?06/07/2024 12:20 PM EST History and Physical Notes * HPI (History of Present Illness) Category Sub-Category Detail Notes Category Not es Skin problems Treatments: Medication (Cicl opirox Olamine 0.77 Cream), states adherence to recommended treatment application At Risk footcare Pt States Last PCP Visit: Date: 04/03/2024 Examination Category Sub-Category Detail Notes Category Not es Dermatologic SKIN FINDINGS: Skin exam reveal s Keratotic lesion(s) located at, Medial, IPJ, TA, Medial, IPJ, T5, SUB MTH (s), 1, B/L , Skin shows approximately 60 percent LESS, sign(s) of, erythema, scaling, in a moccasin fashion, no fissure(s) present, B/L Vascular DP PULSES (B): 0/4, LEFT, 1/4, RIGHT PT PULSES (B): 0/4, B/L CAPILLARY FILL TIME: delayed, all digits , B/L TEMPERTURE GRADIENT (C): decreased, cool to cool, proximal to distal, B/L TROPHIC CONDITION-TEXTURE/ELASTICITY/TURGOR/HAIR GROWTH (B): decreased, with sparse to absent hair gr owth, B/L EDEMA (C): absent, B/L CLAUDICATION (C): denies, B/L REST PAIN: denies, B/L PIGMENTATION: pale, B/L Nails NAILS are: Elongated, overg rown, dystrophic, lytic, greater than 3mm thick, discolored and friable with crumbly malodorous subungual debris, with pain on palpation, TA, T1, T2, T3, T4, T5, T6, T7, T8, T9
--- OUTSIDE RECORDS SUMMARY | 2024-06-07 12:21 | XMS_ITS | Patient Health Record ---
[facility] Address [address] [place] [address] Care Team Providers Care Stoneworker Name Role Phone Sunitha Matt Primary Care Provider Alan Hancock Unavailable [phone] Allergies Allergen (clinical drug ingredient) Drug/Non Drug Allergy documented on EMR Reaction Allergy Type Onset Date Status lisinopril Zestril cough Drug Allergy Active Reason For Referral No Information Medications Medication SIG (Take, Route, Frequency, Duration) Notes Start Date End Date Status Pravastatin Sodium A ctive Glucosamine Not-Taki ng Osteo Bi-Flex Regular Strength Active Calcium Not-Taking Vitamin D3 25 MCG (1000 UT) 1 tablet Orally Once a day for 30 day(s) Active amLODIPine Besylate 2.5 MG 1 tablet Orally Once a day for 30 day(s) Active Fosamax Not-Taking metroNIDAZOLE Active Simvastatin Not-Taki ng Losartan Potassium-HCTZ Active Aspirin 81 MG 1 tablet Orally Once a day for 30 day(s) Not-Taking Folic Acid 1 MG 1 tablet Orally Once a day for 30 day(s) Active Diovan Not-Taking Omeprazole 40 MG 1 capsule 30 minutes before morning meal Orally Once a day for 30 day(s) Active Ciclopirox Olamine 0.77 % 1 application Externally Twice a day for 30 days Active ALPRAZolam 0.25 MG 1 tablet Orally Twic e a day Active Melatonin 5 MG 1 tablet in the even ing Orally Once a day for 30 day(s) Not-Taking Mirtazapine Active Metoprolol Succinate Not-Taking Immunizations Vaccine Route Administration Date Status Comme nts COVID-19 Pfizer BioNTech Vaccine Unknown 12/16/2021 Administered 2020,2020 unsure dates Social History Tobacco Use: Social History Observation [...] ast year? No Points 0 Interpretation Negative Problems Problem Type SNOMED Code ICD Code Onset Dates Problem Status W/U Status Risk Notes Problem Atherosclerosis of salt river arteries of the extremities (108862232173576) Atherosclerosis of salt river artery of both lower extremities, with unspecified presence of clinical manifestation (I70.203) Active confirmed Vital Signs Blood pressure diastolic 80 mm Hg 10/03/2023 Height 5 ft 3 in in 05/07/2024 Blood pressure systolic 130 mm Hg 10/03/2023 Weight 130 lbs 05/07/2024 BMI 23.03 kg/m2 05/07/2024 Procedures Procedure Date Ordered Date Performed Result Body Sit e 65114-VCAVPAZ NAIL, 6 OR MORE 07/25/2023 N/A 32438-STGN SKIN LESIONS, 2 TO 4 07/25/2023 N/A 37339-RWZGKCN NAIL, 6 OR MORE 10/03/2023 N/A 72555-NUOW SKIN LESIONS, 2 TO 4 10/03/2023 N/A 10842-XUGDCGX NAIL, 6 OR MORE 12/08/2023 N/A 02409-AVKL SKIN LESIONS, 2 TO 4 12/08/2023 N/A 74877-JMWHWGR NAIL, 6 OR MORE 05/07/2024 N/A 64977-PUNS SKIN LESIONS, 2 TO 4 05/07/2024 N/A Encounters Encounter Location Date Provider Diagnosis [facility] [address] [address] 07/25/2023 Alan Emery Atherosclerosis of salt river artery of both lower extremities, with unspecified presence of clinical manifestation I70.203 ; Tinea unguium B35.1 ; Pain in right toe(s) M79.674 and Pain in left toe(s) M79.675 [facility] [address] 10/03/2023 Alan Emery Atherosclerosis of salt river artery of both lower extremities, with unspecified presence of clinical manifestation I70.203 ; Tinea unguium B35.1 ; Pain in right toe(s) M79.674 and Pain in left toe(s) M79.[address] [address] 12/08/2023 Alan Emery Atherosclerosis of salt river artery of both lower extremities, with unspecified presence of clinical manifestation I70.203 ; Tinea unguium B35.1 ; Pain in right toe(s) M79.674 ; Pain in left toe(s) M79.675 and Tinea pedis of both feet B35.[address] [address] 05/07/2024 Alan Emery Atherosclerosis of salt river artery of both lower extremities, with unspecified presence of clinical manifestation I70.203 ; Tinea unguium B35.1 ; Pain in right toe(s) M79.674 ; Pain in left toe(s) M79.675 and Tinea pedis of both feet B35.[address] [address] 02/05/2024 Alan Emery Assessments Encounter Date Diagnosis (ICD Code) Assessment Notes Treatment Notes Treatment Clinical Notes Section Notes 07/25/2023 Tinea unguium (ICD-10 - B35.1) 07/25/2023 Atherosclerosis of salt river artery of both lower extremities, with unspecified presence of clinical manifestation (ICD-10 - I70.203) 10/03/2023 Tinea unguium (ICD-10 - B35.1) 10/03/2023 Atherosclerosis of salt river artery of both lower extremities, with unspecified presence of clinical manifestation (ICD-10 - I70.203) 12/08/2023 Tinea unguium (ICD-10 - B35.1) 12/08/2023 Atherosclerosis of salt river artery of both lower extremities, with unspecified presence of clinical manifestation (ICD-10 - I70.203) 05/07/2024 Tinea unguium (ICD-10 - B35.1) 05/07/2024 Atherosclerosis of salt river artery of both lower extremities, with unspecified presence of clinical manifestation (ICD-10 - I70.203) 12/08/2023 Pain in right toe(s) (ICD-10 - M79.674) 05/07/2024 Pain in right toe(s) (ICD-10 - M79.674) 07/25/2023 Pain in right toe(s) (ICD-10 - M79.674) 10/03/2023 Pain in right toe(s) (ICD-10 - M79.674) 10/03/2023 Pain in left toe(s) (ICD-10 - M79.675) 07/25/2023 Pain in left toe(s) (ICD-10 - M79.675) 12/08/2023 Pain in left toe(s) (ICD-10 - M79.675) 05/07/2024 Pain in left toe(s) (ICD-10 - M79.675) 05/07/2024 Tinea pedis of both feet (ICD-10 - B35.3) 12/08/2023 Tinea pedis of both feet (ICD-10 - B35.3) Plan Of Treatment Pending Test Test Name Order Date 82393-RNRHIOA NAIL, 6 OR MORE 01/07/2011 22669-KBFUPRQ NAIL, 6 OR MORE 03/18/2011 16086-RLQHSZF NAIL, 6 OR MORE 05/31/2011 82221-BOBSKYI NAIL, 6 OR MORE 08/23/2011 20407-GUBCSIF NAIL, 6 OR MORE 11/22/2011 80332-PPOYFBN NAIL, 6 OR MORE 01/27/2012 79462-WTXWKVF NAIL, 6 OR MORE 04/03/2012 92801-NESQNTJ NAIL, 6 OR MORE 06/15/2012 42581-XYHOEUQ NAIL, 6 OR MORE 09/18/2012 13211-YMZZDXU NAIL, 6 OR MORE 12/21/2012 59087-TLQMVGQ NAIL, 6 OR MORE 03/26/2013 15234-PNDNLXS NAIL, 6 OR MORE 07/12/2013 19753-UPUORTI NAIL, 6 OR MORE 10/01/2013 81508-BBFVBZI NAIL, 6 OR MORE 05/27/2022 81364-QGBYBRJ NAIL, 6 OR MORE 08/30/2022 64866-ANHFNUC NAIL, 6 OR MORE 11/11/2022 57731-CLZXGYU NAIL, 6 OR MORE 02/07/2023 55655-MDAJZHY NAIL, 6 OR MORE 05/09/2023 80709-JRMOAGL NAIL, 6 OR MORE 07/25/2023 29849-EOAIYPF NAIL, 6 OR MORE 10/03/2023 96318-BXQPUTW NAIL, 6 OR MORE 12/08/2023 80824-LQEQZXB NAIL, 6 OR MORE 05/07/2024 76648-OLQQ SKIN LESIONS, 2 TO 4 05/07/19 67943-POVQ SKIN LESIONS, 2 TO 4 12/08/19 08681-QGGO SKIN LESIONS, 2 TO 4 10/03/19 70024-ZJCV SKIN LESIONS, 2 TO 4 07/25/19 99099-JFHO SKIN LESIONS, 2 TO 4 05/09/19 24976-IGGK SKIN LESIONS, 2 TO 4 02/08/20 99472-SGPT SKIN LESIONS, 2 TO 4 11/12/19 57420-BDHF SKIN LESIONS, 2 TO 4 08/31/19 64388-QIWP SKIN LESIONS, 2 TO 4 05/27/19 Next Appt Details Provider Name:Alan Emery , 07/29/2024 03:00:00 PM, [address] [facility] [address], [place], [address], Insurance Providers Payer Name Payer Address Payer Phone Subscriber Number Group Number Insured Name Patient Relationship to Insured Coverage Start Date Coverage End Date Medicare National [employer] [address] [facility] [address] [id number] Libby Astorga Self - patient is the insured [facility] [address] [place] [address] [id number] Libby Astorga Self - patient is the insured Medical (General) History Medical History History ICD Code Cholesterol back, hip, knee pain Arthritis osteoporosis mumps measles hypertension chicken pox Stomach ulcer thyroid Surgical History Surgery Date(Month/Year) hysterectomy 1969 tonsillectomy 194 cataract surgery OU 11/2012
--- OUTSIDE RECORDS SUMMARY | 2024-06-07 12:21 | XMS_ITS | Clinical Summary ---
Author Organization [facility] Address [address] [place] [address] Care Team Providers Care Supervisor Alteration Workroom Name Role Phone Sunitha Matt MD Primary Care Provider [phone] Allergies No known active allergies Medications Medication Sig Dispensed Refills Start Date End Date Status amLODIPine (NORVASC) 5 MG tablet Take 5 mg by mouth daily. 03/18/2024 Active folic acid (FOLVITE) 1 MG tablet Take 1 mg by mouth daily. 03/18/2024 Active losartan (COZAAR) 100 MG tablet Take 100 mg by mouth daily. 03/31/2024 Active metoPROLOL SUCCINATE (TOPROL-XL) 200 MG 24 hr tablet Take 200 mg by mouth daily. 03/25/2024 Active methimazole (TAPAZOLE) 5 MG tablet Take 5 mg by mouth daily. 03/31/2024 Active OMEprazole (PriLOSEC) 40 MG capsule Take 40 mg by mouth every morning before breakfast. 03/18/2024 Active mirtazapine (REMERON) 7.5 MG tablet Take 7.5 mg by mouth nightly. 04/02/2024 Active potassium chloride (K-TAB) 20 MEQ CR tablet Take 20 mEq by mouth daily. 04/19/2024 Active cyanocobalamin (VITAMIN B-12) 1000 MCG tablet Take 1,000 mcg by mouth daily. Active predniSONE (DELTASONE) 10 MG tabletIndications:B ilateral chronic serous otitis media Take 40 mg (= 4 tablets) by mouth daily for 2 days, then 30 mg (= 3 tablets) daily for 2 days, then 20 mg (= 2 tablets) daily for 2 days, then 10 mg (= 1 tablet) daily for 2 days. Take with food. 20 tablet 05/14/2024 Active pravastatin (PRAVACHOL) 80 MG tablet 02/23/2024 Active ofloxacin (FLOXIN) 0.3 % otic solutionIndications :Bilateral chronic serous otitis media Administer 5 drops into both ears daily. 5 mL 05/29/2024 Active Active Problems No known active problems Encounters Date Type Department Care Team Description 05/29/2024 2:00 PM EST Procedure visit [facility] [address], [place] [address] Jeromy Cagle MD Mixed hearing loss, bilateral (Primary Dx); Bilateral chronic serous otitis media; Dysfunction of both eustachian tubes 05/14/2024 1:15 PM EST Office Visit [facility] [address], [address] [place] [address] Betsy Drake PA-C Bilateral chronic serous otitis media (Primary Dx); Dysfunction of both eustachian tubes from Last 3 Months Social History Tobacco Use Types Packs/Day Years Used Date Smoking Tobacco: Never Smokeless Tobacco: Never Tobacco Cessation:Counseling Given: Not Answered Alcohol Use Standard Drinks/Week Comments Never 0 (1 standard drink = 0.6 oz pur e alcohol) Sex and Gender Information Value Date Recorded Sex Assigned at Not on file Gender Identity Female 05/14/2024 11:09 AM EST Sexual Orientation Not on file Last Filed Vital Signs Vital Sign Reading Time Taken Comments Blood Pressure - - Pulse - - Temperature - - Respiratory Rate - - Oxygen Saturation - - Inhaled Oxygen Concentration - - Weight 56.7 kg (125 lb) 05/29/2024 1:55 PM EST Height 160 cm (5' 3 ) 05/29/2024 1:55 PM EST Body Mass Index 22.14 05/29/2024 1:55 PM EST Plan of Treatment Upcoming Encounters Date Type Department Care Team (Late st Contact Info) Description 07/16/2024 9:00 AM EDT Clinical Support [facility] [place] [address] [place] [address] Kathe Joseph Au.D [address] [place] [address] 07/16/2024 9:30 AM EDT Office Visit [facility] [place] [address] [facility], [place] [address] Jeromy Cagle MD [address] [facility] [address] [place], [place] [id number] Health Maintenance Due Date Last Done Comments DTaP/Tdap/Td Vaccines (1 - Tdap) 1954 Pneumococcal Vaccines 50+ (1 of 1 - PCV) 08/22/1987 Zoster (Shingles) Vaccine (1 of 2) 08/22/1987 DXA Bone Density (Females,Ag es 65 and older) 2002 RSV Vaccine 60 years and old er and Patients (1 - 1-dose 75+ series) 2012 Influenza Vaccine 11/16/2023 COVID-19 Vaccine ( - 2023-2 5 season) 2023 Hepatitis B Vaccines Aged Out No long er eligible based on patient's age to complete this topic Care Teams Supervisor Alteration Workroom Relationship Specialty Start Date End Date Po, Sunitha Mora MD [address] [place] [address] Dr Oseguera [facility] [place] Alonzo [address] PCP - General Internal Medicine 05/14/24
--- OUTSIDE RECORDS SUMMARY | 2024-06-07 12:21 | XMS_ITS | Encounter Summary ---
Author Organization [facility] Address [address] [place] [address] Care Team Providers Care Almond Huller Name Role Phone Sunitha Matt MD Primary Care Provider [phone] Reason for Visit * Reason Comments Ear Fullness Encounter Details Date Type Department Care Team (Latest Contact Info) Description 05/29/2024 2:00 PM EST Procedure visit [facility] [address], [place] [address] Jeromy Cagle MD [address] [place] [address] Mixed hearing loss, bilateral (Primary Dx); Bilateral chronic serous otitis media; Dysfunction of both eustachian tubes Social History [...] Mass Index 22.14 05/29/2024 1:55 PM EST documented in this encounter Progress Notes * Jeromy Cagle MD - 05/29/2024 2:00 PM EST Images from the original note were not included. [address] [facility], [address] Loc: [phone] Encounter Date: 05/29/2024 Chief Complaint Patient presents with Ear Fullness 1. Bilateral chronic serous otitis media - ofloxacin (FLOXIN) 0.3 % otic solution; Administer 5 drops into both ears daily. Dispense: 5 mL; Refill: 0 2. Dysfunction of both eustachian tubes 3. Mixed hearing loss, bilateral ASSESSMENT AND PLAN Libby Astorga is an 88-year-old female presenting with bilateral middle ear effusion confirmed by recent evaluation. She has been treated with prednisone and amoxicillin without complete resolution. Physical exam and tuning fork test indicate more pronounced fluid in the right ear. A simple myringotomy is planned to drain the fluid, with the possibility of future ear tube placement if fluid reaccumulates. - Performed myringotomy on both ears to drain fluid - Prescribe eardrops for 3 days to minimize infection risk - Advise keeping ears dry for 24 hours - Follow-up in 3-4 weeks with either myself or Betsy Barber - Recommend Audiogram post-procedure to assess hearing status HISTORY OF PRESENT ILLNESS Libby Astorga reports concerns of hearing loss and recent evaluation showing bilateral middle ear effusion. She was treated with prednisone and amoxicillin. She notes occasional hearing improvement but not complete resolution. She denies past episodes of fluid in the ears and has never used hearing aids. She believes the right ear is worse than the left. PHYSICAL EXAM The patient was in no acute distress and breathing comfortably on exam. Examination of the ears, nose, oral cavity, oropharynx, and neck was completed and found to be within normal limits with the following notable exceptions and findings highlighted here: - Tuning fork test: Espinosa louder on the right side - Right ear: middle ear effusion, TM retracted - Left ear: middle ear effusion, TM retracted DIAGNOSTIC TESTING REVIEWED A tuning fork test confirms more pronounced fluid in the right ear compared to the left. PROCEDURE Name of Procedure: Myringotomy, fluid aspiration bilteral Indication: See HPI EBL: less than 5 ml Description of the procedure: The patient was identified in the procedure room and surgical consent was reviewed and signed. All questions were answered at this time. The patient was placed in a reclined position and the operative microscope was used to evaluate the right ear and ear canal. Cerumen debris was removed from the ear canal and the tympanic membrane was visualized. Topical phenol was applied to the inferior aspect of the tympanic membrane. After adequate time for this to take effect, a radial myringotomy incision was created in the tympanic membrane and serous fluid aspirated from the middle ear. The operative microscope was then used to evaluate the left ear and ear canal. Cerumen debris was removed from the ear canal and the tympanic membrane was visualized. Topical phenol was applied to the inferior aspect of the tympanic membrane. After adequate time for this to take effect, a radial myringotomy incision was created in the tympanic membrane and serous fluid aspirated from the middle ear. The patient tolerated the procedure well and was observed prior to discharge home with post-procedure instructions. Disposition: Home with self care PAST MEDICAL HISTORY Past Medical History: Diagnosis Date GERD (gastroesophageal reflux disease) Hyperlipidemia Hypertension History reviewed. No pertinent surgical history. History reviewed. No pertinent family history. Social History Tobacco Use Smoking status: Never Smokeless tobacco: Never Substance Use Topics Alcohol use: Never Drug use: Never MEDICATIONS Current Outpatient Medications: pravastatin (PRAVACHOL) 80 MG tablet, , Disp: , Rfl: amLODIPine (NORVASC) 5 MG tablet, Take 5 [...] mg by mouth nightly., Disp: , Rfl: ofloxacin (FLOXIN) 0.3 % otic solution, Administer 5 drops into both ears daily., Disp: 5 mL, Rfl: 0 OMEprazole (PriLOSEC) 40 MG capsule, Take 40 [...] with food., Disp: 20 tablet, Rfl: 0 ALLERGIES No Known Allergies VISIT ORDERS 1. Bilateral chronic serous otitis media - ofloxacin (FLOXIN) 0.3 % otic solution; Administer 5 drops into both ears daily. Dispense: 5 mL; Refill: 0 2. Dysfunction of both eustachian tubes 3. Mixed hearing loss, bilateral Jeromy Cagle MD documented in this encounter Plan of Treatment Upcoming Encounters Date Type Department Care Team (Late st Contact Info) Description 07/16/2024 9:00 AM EDT Clinical Support [facility] [address] [place] [address] Kathe Joseph Au.D [address] [place] [address] 07/16/2024 9:30 AM EDT Office Visit [facility] [address] [place] [address] Jeromy Cagle MD [address] [place] [id number] documented as of this encounter Visit Diagnoses Diagnosis Mixed hearing loss, bilateral- Primary Bilateral chronic serous otitis media Simple or unspecified chronic serous otitis media Dysfunction of both eustachian tubes documented in this encounter Care Teams Almond Huller Relationship Specialty Start Date End Date Sunitha Matt MD [address] [place] [address] [place] [address] PCP - General Internal Medicine 05/14/24 documented as of this encounter
--- OUTSIDE RECORDS SUMMARY | 2024-06-07 12:21 | XMS_ITS ---
Author Organization [facility] Address [address] [place] [address] Care Team Providers Care Superintendent Construction Name Role Phone Sunitha Matt Primary Care Provider Alan Hancock Unavailable [phone] REASON FOR VISIT rs from 02/13/24 Encounters Encounter Location Date Provider Diagnosis [facility] [address] [place] [address] 02/05/2024 Alan Emery Plan Of Treatment Next Appt Details Provider Name:Alan Emery , 07/29/2024 03:00:00 PM, [address] [facility], [address], [place], [address], Progress Notes * Libby BAERDOB:1935 ([age] yo F)Acc No.[id number]:02/05/2024 Patient:?Libby Baer :1935???Age:88 Y???Sex:Female Address:[address] [place] [address], [phone] * true * Date:? Generated for Eliciai tatyana/Gopal/eTransmitting on:?06/07/2024 12:20 PM EST
== END 2024-06-07 16:52 | disposition home or self-care (01) ==
LOC: HO.HMCH 11:11
PROVIDERS: PCP Internal Medicine; Visit Provider Internal Medicine
DX: R19.7 Diarrhea, unspecified (principal)

== ENCOUNTER → 2024-06-07 11:11 | Outpatient (BNVA) | payer MEDICARE, OTHER, SELFPAY | PROVIDERS: PCP Internal Medicine; Visit Provider Internal Medicine | DX: R19.7 Diarrhea, unspecified (principal) | CPT/HCPCS: 96127 ==

== ENCOUNTER 2024-08-03 11:33 | Inpatient (IN) | payer MEDICARE, MEDICAID, SELFPAY ==
--- NOTE | ~2024-08-03 | CT_ITS ---
CLINICAL HISTORY: fall ? Subcapital fracture on x-ray CT pelvis without contrast Comparison: Hip radiograph 08/03/2024 Findings: Pelvic contents unremarkable. No acute fracture. IMPRESSION: No acute findings. This document has been electronically signed by: David Lima MD on 08/03/2024 15:30:11
--- NOTE | ~2024-08-03 | XR_ITS ---
CLINICAL HISTORY: fall 1 view chest x-ray Comparison: None Findings: Portions of the exam are obscured by overlying material. There is interstitial consolidation, acuity indeterminate. Differential considerations would include chronic interstitial lung disease, pneumonia, or pulmonary edema. Normal size heart. No acute fracture. IMPRESSION: 1. Interstitial consolidation, differential considerations noted. This document has been electronically signed by: David Lima MD on 08/03/2024 14:15:25
--- NOTE | ~2024-08-03 | CT_ITS ---
CLINICAL HISTORY: UNWITNESSED FALL CT head without contrast Comparison: None Findings: No intra-axial mass, midline shift, hydrocephalus, or acute hemorrhage. There is minimal diffuse atrophy with white matter change possibly related to chronic microvascular ischemia. There is no sinus or mastoid fluid. There is mucoperiosteal thickening with inspissated mucus filling the right maxillary antrum. The orbits are unremarkable. There is no acute fracture. IMPRESSION: 1. No acute intracranial findings. This document has been electronically signed by: David Lima MD on 08/03/2024 13:52:07
--- NOTE | ~2024-08-03 | XR_ITS ---
CLINICAL HISTORY: FALL RIGHT HIP PAIN 6 view, pelvis and right hip Comparison: None Findings: The bones are intact. No significant arthritic change. The soft tissues are unremarkable. IMPRESSION: No acute findings. This document has been electronically signed by: David Lima MD on 08/03/2024 14:13:11
--- NOTE | ~2024-08-03 | XR_ITS ---
CLINICAL HISTORY: UNWITNESSED FALL SHOULDER PAIN BRUISING 3 view left shoulder Comparison: None Findings: Bones intact. There is anterior humeral dislocation. No significant loss of joint space or osteophytes. No erosions. No radiopaque foreign body. IMPRESSION: 1. Anterior humeral dislocation. This document has been electronically signed by: David Lima MD on 08/03/2024 14:15:08
--- NOTE | ~2024-08-03 | CT_ITS ---
CLINICAL HISTORY: UNWITNESSED FALL CT cervical spine without contrast Comparison: None Findings: Vertebral alignment is within normal limits. There is multiple level degenerative disc, facet, and uncovertebral joint change. No acute fractures or dislocations. Visualized intracranial contents are unremarkable. No cervical fluid collections or masses. Lung apices are clear. IMPRESSION: No acute findings. This document has been electronically signed by: David Lima MD on 08/03/2024 13:50:32
[2024-08-03 11:42] VITALS: BP 108/56; PULSE 85; O2SAT 97
[2024-08-03 11:43] VITALS: BMI 23.5
[2024-08-03 11:46] VITALS: BP 120/74; PULSE 77; RESP 27; TEMP 36.7; O2SAT 96
--- NOTE | 2024-08-03 11:57 | ED.GENADULT ---
HPI - General Adult General Chief complaint: General Medical Stated complaint: ?UTI,FALL 08/02,PCP WANTS WORK UPS FOR UTI PER EMS Time Seen by Provider: 08/03/24 11:48 Source: patient and EMS Mode of arrival: EMS Limitations: no limitations History of Present Illness ED Provider: CAITLIN CEDENO PA-C HPI narrative: 88-year old female with pmhx significant for HTN, hypothyroidism, hyperparathyroidism presents to the ED today via EMS from assisted living facility for evaluation status post unwitnessed fall occurring yesterday. Patient is poor historian due to dementia. Daughter reports most current MMSE score 16. Both of patient's daughters are at bedside to assist with history. Per patient's daughter, she received a call Monday morning around 1000 (24 hours ago) that patient was found down on the ground in her room by staff. She was awake. It was reported they she may have fallen trying to get out of her bed however her down time is unclear. She does not recall any details surrounding the fall. Since this time, patient reports right hip pain, worse with any ambulation. She reports difficulty ambulating at baseline due to chronic right knee pain. In addition, she reports last voiding last night around 2300. Her urine was dark and cloudy. She has been unable to void today. She denies any pain on urination or abdominal pain. Denies nausea, vomiting, or diarrhea. Her daughter reached out to patient's PCP today who noted concern for UTI and advised she come to the ED for further eval. Related Data Home Medications ?Medication ?Instructions ?Recorded ?Confirmed omeprazole 40 mg capsule,delayed 40 mg PO DAILY@0630 08/03/24 release Previous Rx's ?Medication ?Instructions ?Recorded amlodipine 5 mg tablet 5 mg PO DAILY #90 tabs 05/08/24 cholecalciferol (vitamin D3) 50 50 mcg PO DAILY 90 days #90 caps 05/08/24 mcg (2,000 unit) capsule folic acid 1 mg tablet 1 mg PO DAILY 90 days #90 tabs 05/08/24 glucosamine-chondroitin 250 mg-200 2 tab PO .QD #60 tabs 05/08/24 mg tablet (Osteo Bi-Flex) methimazole 5 mg tablet 5 mg PO DAILY 90 days #90 tabs 05/08/24 metoprolol succinate 200 mg 200 mg PO DAILY 90 days #90 tabs 05/08/24 tablet,extended release 24 hr acetaminophen 500 mg tablet 500 mg PO QID PRN pain #30 tabs 05/10/24 (Tylenol Extra Strength) cyanocobalamin (vitamin B-12) 1,000 mcg PO DAILY #30 caps 05/10/24 1,000 mcg capsule mirtazapine 7.5 mg tablet 3.75 mg (1/2 x 7.5 mg) PO BEDTIME 05/15/24 90 days #45 tabs Lactobacillus rhamnosus GG 15 1 cap PO BID #14 caps 06/14/24 billion cell sprinkle capsule (Culturelle) potassium chloride 20 mEq 20 meq PO DAILY #30 tabs 06/27/24 tablet,extended release(part/cryst) (Klor-Con M) Allergies Allergy/AdvReac Type Severity Reaction Status Date / Time amoxicillin AdvReac Intermediate Diarrhea Verified 08/03/24 11:49 hydrochlorothiazide AdvReac Intermediate hypercalcem Verified 06/07/24 11:12 ia Review of Systems Review of Systems: Yes all other systems are reviewed and are negative [facility] Past Medical History Attestation statement: The following information was validated with the patient. Source: old records reviewed, obtained from family and nursing notes reviewed Medical History Multinodular goiter (nontoxic) Arthritis Hx of flexible sigmoidoscopy COVID-19 vaccine series completed Gastric ulcer Hyperthyroidism History of blood transfusion High cholesterol Hypertension Surgical History Hx of cataract extraction History of tonsillectomy S/P JEFF-BSO History of endoscopy Social History Social History Household Members: Family Household Members Other:: 2 family home-daughter lives on 1st floor Housing: House Are you a primary career development coordinator/teacher to a significant other at home: No Do you presently have visiting nurse or other home services: No Alcohol intake: current Alcohol type: wine Patient Tobacco Use Status: Former Tobacco user Tobacco use type: Cigarette Smoked in Last 30 Days: No e-Cigarette/Vaping Use: Never Used Second Hand Smoke Exposure: No Use of substances other than those prescribed or required for medical reasons: No Advance Directives: No Advance Directives Information Provided: Yes Do you have a plan to hurt others: No Plan service: No Current occupational status: retired Cognitive needs: Yes (cane) Hearing needs: No Vision needs: Yes (Reading glasses) Physical Exam ED Vital Signs: Vital Signs - 24 hr 08/03/24 11:46 08/03/24 12:19 08/03/24 16:34 Temperature 98.1 F 100.6 F H 99.1 F Pulse Rate 77 68 Respiratory Rate 27 H 16 Blood Pressure 120/74 125/67 Pulse Oximetry 96 96 Oxygen Delivery Method Room Air Room Air 08/03/24 17:45 Temperature Pulse Rate 71 Respiratory Rate 16 Blood Pressure 129/74 Pulse Oximetry 97 Oxygen Delivery Method Room Air BMI result Body Mass Index 23.5 Tachypneic, febrile General: Well appearing, in no acute distress Skin: +There appears to be a fungal rash to gluteal cleft. No active drainage. Surrounding erythema which appears to be pressure related. Unlikely cellulitic or infectious in etiology. Head: Normocephalic, atraumatic. EENT: Hearing is intact b/l. Conjunctiva clear. PERRLA. EOM intact. Moist mucous membranes.? Neck: Supple without LAD Cardiac: Chest wall symmetric. RRR Lungs: Normal respiratory effort without accessory muscle use. CTA bilaterally Abdomen: Soft, non-tender, non-distended. No rebound tenderness or guarding. Positive BS x4. Back: No midline spinous or paraspinal tenderness. No step off deformity. Ext: +full ROM to bilateral hips with some pain on extension of right hip. No noted deformity. No rotation or shortening of either leg. There is bruising noted to lateral aspect of left shoulder in healing stages. There is noted deformity to left shoulder. ? Swelling versus dislocation. She does have ROM intact to left shoulder with some restriction on abduction. Does not endorse pain. 2+ radial/ulnar pulse intact. Sensation intact. Neuro: AOx3. Normal speech. Strength 5/5 intact throughout. Sensation intact to light touch. NV intact distally. Psych: Appropriate mood and affect. Responds appropriately to questions. Course Course Course Narrative: 1533 -- CBC without leukocytosis or left shift. No anemia. H&H stable. Hyponatremic to 128. Will add on serum/urine osmolality, urine sodium with fluid restriction. daughters at bedside state she is at her baseline mentation. No other acute electrolyte abnormalities requiring intervention. BUN mildly elevated to 18. Normal creatinine. Liver function around baseline. Total CK 497 > will hold on fluids d/t hyponatremia. no concern for rhabdo. Troponin mildly elevated to 19.7. Will repeat for delta. Urine showing large amount of leukocyte esterase, over 50 WBCs, no urine bacteria. ?mild UTI. > CT head/brain without bleed. CT cervical spine without fracture or subluxation. > x-ray left shoulder showing anterior dislocation of humerus. She does have bruising noted to lateral aspect of left shoulder. Appears to be in healing stages. Upon speaking with patient and daughter, she has been having left shoulder pain since March 2024. Back in March, she would guard her left upper extremity and hold it in adduction. She has been to OT twice over the last 4 months for this. She is now able to move her left shoulder, somewhat restricted with abduction. Denies any pain to the shoulder. At this time, it was unclear whether she acutely dislocated her left shoulder yesterday during unwitnessed fall or if this is a chronic dislocation from 4 months ago. Favoring chronic as she was able to move the left upper extremity without discomfort. I did reach out to orthopedic PA Ruby who has reviewed scans. 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 She was not recommending relocation at this time. Just recommends outpatient follow-up for OT/PT. > initially patient reporting right hip pain. Her exam was quite benign, some pain on ROM of right hip. No obvious deformities. Of note, we did roll patient over onto her left side to take a rectal temperature. She was reporting some left-sided hip pain on rolling over. During x-rays, x-ray tech noted possible deformity to left hip. X-rays were obtained. Radiologist initially read films as normal, without noted fracture to either hip. It appeared that patient could have either subcapital/femoral neck fracture of left hip verses positional. I did speak with radiologist Dr. Xiao who states there could possibly be a subcapital fracture, recommending CT left hip for further evaluation. patient has FROM intact to left hip, fracture unlikely. CT obtained which is normal. > chest x-ray shows interstitial consolidation, acuity indeterminate. Concern for possible pneumonia versus pulmonary edema. given fever, will treat for PNA. ceftriaxone and azithromycin ordered. > miconazole ointment ordered for sacral fungal infection. low suspicion for cellulitis. > IV tylenol ordered for pain/ fever control. 1715 -- repeat trop 15.7. No concern for ACS. BNP WNL. Unlikely CHF. > given hyponatremia, increased weakness, fall risk, UTI, pneumonia - I feel patient would benefit from admission to medicine for further evaluation and treatment. I did speak to hospitalist dr. flood who has agreed to patient admission. Medications Administered Discontinued Medications Generic Name Dose Route Start Last Admin Trade Name Freq PRN Reason Stop Dose Admin Ceftriaxone Sodium 1 gm 08/03/24 15:03 08/03/24 15:29 Ceftriaxone Sodium 1 Gm Vial IVPUSH 08/03/24 15:04 1 gm ONCE ONE Administration Acetaminophen 1,000 mg in 100 mls @ 400 mls/hr 08/03/24 12:23 08/03/24 13:33 Ofirmev IV 08/03/24 12:37 Infused ONCE ONE Infusion Azithromycin 500 mg/ Sodium 250 mls @ 125 mls/hr 08/03/24 15:03 08/03/24 17:44 Chloride IV 08/03/24 17:02 Infused ONCE ONE Infusion Miconazole Nitrate 1 appl 08/03/24 13:44 08/03/24 14:43 Miconazole 2 % Extra Thick Cr 56.7 Gm Tube TOPICAL 08/03/24 13:45 1 appl ONCE ONE Administration Protocol Medical Decision Making Medical Decision Making MDM Narrative: 88-year old female with pmhx significant for HTN, hyperthyroidism, hyperparathyroidism presents to the ED today via EMS from assisted living facility for evaluation status post unwitnessed fall occurring yesterday. Patient initially tachypneic to 27. Febrile to 100.6 rectally. Vitals are otherwise WNL. Not hypoxic. She is well-appearing, lying on exam bed. Mentation is at baseline. She has full ROM to bilateral hips with some pain on extension of right hip. No noted deformity. No rotation or shortening of either leg. There is bruising noted to lateral aspect of left shoulder in healing stages. There is noted deformity to left shoulder. ? Swelling versus dislocation. She does have ROM intact to left shoulder with some restriction on abduction. Does not endorse pain. 2+ radial/ulnar pulse intact. Sensation intact. PERRLA. There appears to be a fungal rash to gluteal cleft. No active drainage. Surrounding erythema which appears to be pressure related. Unlikely cellulitic or infectious in etiology. Differential diagnosis includes anemia, electrolyte abnormality, dehydration, ACS, arrhythmia, left shoulder fracture versus contusion versus dislocation, right hip fracture versus dislocation versus contusion. Concern for intracranial bleed. Plan for screening labs, CPK, chest x-ray, imaging of right hip and left shoulder, urinalysis, CT head/c spine, IV tylenol, re-evaluation. Differential Diagnosis Differential Diagnoses: The differential diagnosis associated with the presentation includes as above. Admission/Observation Consideration of admission/observation: Escalation of care including admission/observation considered patient admitted to medicine for further treatment of UTI, pneumonia and hyponatremia Consult Healthcare Provider Management of the patient was discussed with: Hospitalist (dr flood) and Body And Fender Mechanic Apprentice (malika bahena) Lab Data MDM Lab Attestation statement: I reviewed the patient's lab results. as above 08/03/24 12:38 08/03/24 13:58 Labs: Lab Results 08/03/24 08/03/24 08/03/24 Range/Units 12:37 12:38 13:58 WBC 7.9 (4.8-10.8) X10*3/uL RBC 5.08 (4.20-5.50) X10*6/uL Hgb 15.1 (12.0-16.0) g/dl Hct 43.0 (37.0-47.0) % MCV 84.6 (80.0-98.0) fL MCH 29.7 (27.0-33.0) pg MCHC 35.1 H (31.0-35.0) g/dl RDW 12.7 (11.0-16.0) % Plt Count 268 D (160-400) X10*3/uL MPV 9.5 (9.4-12.3) fL Immature Gran % (Auto) 0.3 (0.0-0.4) % Neut % (Auto) 59.1 (45-73) % Lymph % (Auto) 19.4 L (20-40) % [place] % (Auto) 20.0 H (2-11) % Eos % (Auto) 0.6 (0-4) % Baso % (Auto) 0.6 (0-2) % Lymph # (Auto) 1.5 (1.2-4.9) X10*3/uL [place] # (Auto) 1.6 H (0.1-1.2) X10*3/uL Eos # (Auto) 0.1 (0.0-0.4) X10*3/uL Baso # (Auto) 0.1 (0.0-0.2) X10*3/uL Abs Immat Gran (auto) 0.02 (0.00-0.03) X10*3/uL Absolute Neuts (auto) 4.7 (2.0-8.3) x10*3/uL Absolute Nucleated RBC 0.000 (0.0-0.012) X10*3/uL Nucleated RBC % (auto) 0.0 (0.0-0.2) /100WBC Smear Tech's Comments VERIFIED Sodium 128 L (135-145) mmol/L Potassium 3.8 (3.3-5.1) mmol/L Chloride 96 (96-108) mmol/L Carbon Dioxide 24 (22-29) mmol/L Anion Gap 12 (12-20) BUN 18 H (9-16) mg/dL Creatinine 0.62 (0.5-1.4) mg/dL Estim Creat Clear Calc 51.5 Estimated GFR > 60 Random Glucose 94 (60-115) mg/dL Osmolality (281-305) mosm/kg Calcium 9.3 D (8.4-10.2) mg/dL Magnesium 1.8 (1.6-2.6) mg/dL Total Bilirubin 0.6 (0.0-1.0) mg/dL AST 58 H (5-31) U/L ALT 10 (0-31) U/L Alkaline Phosphatase 83 (39-117) U/L Total Creatine Kinase 497 H (26-140) U/L Troponin I High Sens 19.7 H (<3.5-17.0) ng/L B-Natriuretic Peptide 45 (<100) pg/mL Total Protein 5.8 L (6.5-8.0) g/dL Albumin 3.2 L (3.5-5.0) g/dL Lipase 13 (8-78) U/L Urine Color Dark Yellow Urine Appearance Cloudy Urine pH 6.0 (5.0-9.0) Ur Specific [place] 1.015 (1.005-1.025) Urine Protein 30 (1+) H (Neg-Trace) mg/dL Urine Glucose (UA) Negative (Negative) mg/dL Urine Ketones Trace (Negative) mg/dL Urine Blood Negative (Negative) Urine Nitrite Negative (Negative) Ur Leukocyte Esterase Large (3+) H (Negative) Urine RBC 0-2 (0-2) /HPF Urine WBC >50 H (0-5) /HPF Ur Squamous Epith Cells 0-2 (0-2) /HPF Urine Bacteria None Seen (None Seen) Hyaline Casts 0-2 (0-2) /LPF Urine Osmolality 371 L (373-1093) mosm/kg Ur Random Sodium 33.0 mmol/L Influenza Type A (PCR) NEGATIVE (Negative) Influenza Type B (PCR) NEGATIVE (Negative) RSV RNA Qual (PCR) NEGATIVE (Negative) SARS-CoV-2 RNA (RT-PCR) NEGATIVE (Negative) 08/03/24 08/03/24 Range/Units 15:16 16:07 WBC (4.8-10.8) X10*3/uL RBC (4.20-5.50) X10*6/uL Hgb (12.0-16.0) g/dl Hct (37.0-47.0) % MCV (80.0-98.0) fL MCH (27.0-33.0) pg MCHC (31.0-35.0) g/dl RDW (11.0-16.0) % Plt Count (160-400) X10*3/uL MPV (9.4-12.3) fL Immature Gran % (Auto) (0.0-0.4) % Neut % (Auto) (45-73) % Lymph % (Auto) (20-40) % [place] % (Auto) (2-11) % Eos % (Auto) (0-4) % Baso % (Auto) (0-2) % Lymph # (Auto) (1.2-4.9) X10*3/uL [place] # (Auto) (0.1-1.2) X10*3/uL Eos # (Auto) (0.0-0.4) X10*3/uL Baso # (Auto) (0.0-0.2) X10*3/uL Abs Immat Gran (auto) (0.00-0.03) X10*3/uL Absolute Neuts (auto) (2.0-8.3) x10*3/uL Absolute Nucleated RBC (0.0-0.012) X10*3/uL Nucleated RBC % (auto) (0.0-0.2) /100WBC Smear Tech's Comments Sodium (135-145) mmol/L Potassium (3.3-5.1) mmol/L Chloride (96-108) mmol/L Carbon Dioxide (22-29) mmol/L Anion Gap (12-20) BUN (9-16) mg/dL Creatinine (0.5-1.4) mg/dL Estim Creat Clear Calc Estimated GFR Random Glucose (60-115) mg/dL Osmolality 271 L (281-305) mosm/kg Calcium (8.4-10.2) mg/dL Magnesium (1.6-2.6) mg/dL Total Bilirubin (0.0-1.0) mg/dL AST (5-31) U/L ALT (0-31) U/L Alkaline Phosphatase (39-117) U/L Total Creatine Kinase (26-140) U/L Troponin I High Sens 15.7 (<3.5-17.0) ng/L B-Natriuretic Peptide (<100) pg/mL Total Protein (6.5-8.0) g/dL Albumin (3.5-5.0) g/dL Lipase (8-78) U/L Urine Color Urine Appearance Urine pH (5.0-9.0) Ur Specific [place] (1.005-1.025) Urine Protein (Neg-Trace) mg/dL Urine Glucose (UA) (Negative) mg/dL Urine Ketones (Negative) mg/dL Urine Blood (Negative) Urine Nitrite (Negative) Ur Leukocyte Esterase (Negative) Urine RBC (0-2) /HPF Urine WBC (0-5) /HPF Ur Squamous Epith Cells (0-2) /HPF Urine Bacteria (None Seen) Hyaline Casts (0-2) /LPF Urine Osmolality (373-1093) mosm/kg Ur Random Sodium mmol/L Influenza Type A (PCR) (Negative) Influenza Type B (PCR) (Negative) RSV RNA Qual (PCR) (Negative) SARS-CoV-2 RNA (RT-PCR) (Negative) Independent Interpretation I performed an independent interpretation of an: EKG, Plain X-Ray and CT Scan Interpretation: EKG showing sinus rhythm with first-degree AV block Chest x-ray showing consolidation CT left hip without fracture X-ray left shoulder with anterior dislocation of left humerus X-ray bilateral hips/pelvis with possible subcapital or femoral neck fracture CT head without bleed CT cervical spine without fracture or subluxation Radiology Impression Discussion of test interpretation with radiology: I have reviewed the radiologist's reading. Radiologist Impression: Procedure(s): XR chest 1V Accession Number(s): [id number] cc: Physician,Unknown ; Caitlin Cedeno~ CLINICAL HISTORY: fall 1 view chest x-ray Comparison: None Findings: Portions of the exam are obscured by overlying material. There is interstitial consolidation, acuity indeterminate. Differential considerations would include chronic interstitial lung disease, pneumonia, or pulmonary edema. Normal size heart. No acute fracture. IMPRESSION: 1. Interstitial consolidation, differential considerations noted. Procedure(s): XR shoulder LT min 2V Accession Number(s): [id number] cc: Physician,Unknown ; Caitlin Cedeno~ CLINICAL HISTORY: UNWITNESSED FALL SHOULDER PAIN BRUISING 3 view left shoulder Comparison: None Findings: Bones intact. There is anterior humeral dislocation. No significant loss of joint space or osteophytes. No erosions. No radiopaque foreign body. IMPRESSION: 1. Anterior humeral dislocation. This document has been electronically signed by: David Lima MD on 08/03/2024 14:15:08 Procedure(s): XR hip BI w PEL1V Accession Number(s): [id number] cc: Physician,Unknown ; Caitlin Cedeno~ CLINICAL HISTORY: FALL RIGHT HIP PAIN 6 view, pelvis and right hip Comparison: None Findings: The bones are intact. No significant arthritic change. The soft tissues are unremarkable. IMPRESSION: No acute findings. This document has been electronically signed by: David Lima MD on 08/03/2024 14:13:11 Procedure(s): CT hip LT wo IV con Accession Number(s): [id number] cc: Physician,Unknown ; Caitlin Cedeno~ Report Number: [id number]: Total DLP = 251.00 mGy-cm CLINICAL HISTORY: fall ? Subcapital fracture on x-ray CT pelvis without contrast Comparison: Hip radiograph 08/03/2024 Findings: Pelvic contents unremarkable. No acute fracture. IMPRESSION: No acute findings. This document has been electronically signed by: David Lima MD on 08/03/2024 15:30:11 Procedure(s): CT head/brain wo IV con Accession Number(s): [id number] cc: Physician,Unknown ; Caitlin Cedeno~ Report Number: [id number]: Total DLP = 592.00 mGy-cm CLINICAL HISTORY: UNWITNESSED FALL CT head without contrast Comparison: None Findings: No intra-axial mass, midline shift, hydrocephalus, or acute hemorrhage. There is minimal diffuse atrophy with white matter change possibly related to chronic microvascular ischemia. There is no sinus or mastoid fluid. There is mucoperiosteal thickening with inspissated mucus filling the right maxillary antrum. The orbits are unremarkable. There is no acute fracture. IMPRESSION: 1. No acute intracranial findings. This document has been electronically signed by: David Lima MD on 08/03/2024 13:52:07 Procedure(s): CT cervical spine wo IV con Accession Number(s): [id number] cc: Physician,Unknown ; Caitlin Cedeno~ Report Number: [id number]: Total DLP = 200.00 mGy-cm CLINICAL HISTORY: UNWITNESSED FALL CT cervical spine without contrast Comparison: None Findings: Vertebral alignment is within normal limits. There is multiple level degenerative disc, facet, and uncovertebral joint change. No acute fractures or dislocations. Visualized intracranial contents are unremarkable. No cervical fluid collections or masses. Lung apices are clear. IMPRESSION: No acute findings. This document has been electronically signed by: David Lima MD on 08/03/2024 13:50:32 Independent Historian Clinical information obtained from an independent historian. History obtained from or confirmed by: Other (daughters) External Record Review External record reviewed: Inpatient record Prescription Management I considered prescription management with: Pain Medication Chronic Conditions Patient?s care impacted by: Other (dementia) Social Determinants Patient?s care significantly limited by Social Determinants of Health including: Other Social Determinant of Health Critical Care Time Critical Care Time Critical Care Time: No Discharge Plan Discharge Clinical Impression: Pneumonia, Hyponatremia, UTI (urinary tract infection), Anterior dislocation of humerus Patient Disposition: Admitted As Inpatient
[2024-08-03 12:19] VITALS: BP 125/67; PULSE 68; RESP 16; TEMP 38.1; O2SAT 96
[2024-08-03] MEDS: Acetaminophen 1,000 MG/100 ML PIGGYBACK 400 MG IV (12:49)
[2024-08-03 13:01] LABS: Appearance Urine Cloudy; Color Urine Dark Yellow; Glucose Urine UA Negative (Negative); Leukocyte Esterase Urine Large (3+) (Negative); Nitrite Urine Negative (Negative); Specific Gravity - Urine 1.015 (1.005-1.025); UMIC TRIGGER UACC YES; Urine Blood Negative (Negative); Urine Ketones Trace mg/dL (Negative); Urine Protein 30 (1+) mg/dL (Neg-Trace)
[2024-08-03 13:06] LABS: Bacteria Urine None Seen (None Seen); Hyaline Casts Urine 0-2 /LPF (0-2); RBC Urine 0-2 /HPF (0-2); Squamous Epithelial Cell Urine 0-2 /HPF (0-2); UACC Culture Trigger YES; WBC Urine >50 /HPF (0-5)
[2024-08-03 13:19] LABS: Basophils Absolute Auto 0.1 X10*3/uL (0.0-0.2); Basophils Percent Auto 0.6 % (0-2); Eosinophils Absolute Auto 0.1 X10*3/uL (0.0-0.4); Eosinophils Percent Auto 0.6 % (0-4); Hemoglobin 15.1 g/dl (12.0-16.0); Imm Gran Abs Auto 0.02 X10*3/uL (0.00-0.03); Imm Gran Pct Auto 0.3 % (0.0-0.4); Lymphocytes Absolute Auto 1.5 X10*3/uL (1.2-4.9); Lymphocytes Percent Auto 19.4 % (20-40); MANUAL DIFF FLAG SCAN; Mean Corpuscular Hemoglobin 29.7 pg (27.0-33.0); Mean Corpuscular Volume 84.6 fL (80.0-98.0); Mean Platelet Volume 9.5 fL (9.4-12.3); Monocytes Absolute Auto 1.6 X10*3/uL (0.1-1.2); Neutrophils Absolute Auto 4.7 x10*3/uL (2.0-8.3); Neutrophils Percent Auto 59.1 % (45-73); Platelet Count 268 X10*3/uL (160-400); Red Blood Count 5.08 X10*6/uL (4.20-5.50); Red Cell Distribution Width 12.7 % (11.0-16.0); SCAN SMEAR FLAG 1; White Blood Count 7.9 X10*3/uL (4.8-10.8)
[2024-08-03 13:21] LABS: Mean Corpuscular HGB Conc 35.1 g/dl (31.0-35.0); SLIDE REVIEW VERIFIED
[2024-08-03 13:44] LABS: Influenza A PCR NEGATIVE (Negative); Influenza B PCR NEGATIVE (Negative); Resp Syncy Virus RNA Qual PCR NEGATIVE (Negative); SARS COV2 PCR INHOUSE NEGATIVE (Negative)
[2024-08-03 14:22] LABS: Troponin-I High Sensitivity 19.7 ng/L (<3.5-17.0)
[2024-08-03 14:26] LABS: Alanine Aminotransferase 10 U/L (0-31); Albumin Level 3.2 g/dL (3.5-5.0); Alkaline Phosphatase 83 U/L (39-117); Anion Gap 12 (12-20); Aspartate Amino Transferase 58 U/L (5-31); Bilirubin Total 0.6 mg/dL (0.0-1.0); Blood Urea Nitrogen 18 mg/dL (9-16); Calcium 9.3 mg/dL (8.4-10.2); Carbon Dioxide 24 mmol/L (22-29); Chloride 96 mmol/L (96-108); Creatinine Clr Calc Pharmacy 51.5; Estimated Glomerular Filt Rate > 60; Glucose Random 94 mg/dL (60-115); Lipase 13 U/L (8-78); Magnesium 1.8 mg/dL (1.6-2.6); Potassium 3.8 mmol/L (3.3-5.1); Sodium 128 mmol/L (135-145); Total Protein 5.8 g/dL (6.5-8.0)
[2024-08-03] MEDS: Miconazole 2 % Extra Thick Cr 56.7 Gm Tube 1 APPL TOPICAL (14:43)
[2024-08-03] MEDS: cefTRIAXone sodium 1 GM VIAL IVPUSH (15:29)
[2024-08-03] MEDS: Azithromycin 500 MG in 0.9 % Sodium Chloride 250 ML 125 MG IV (15:29)
[2024-08-03 16:02] LABS: Osmolality, Serum 271 mosm/kg (281-305)
[2024-08-03 16:34] VITALS: TEMP 37.3
[2024-08-03 16:46] LABS: B Type Natriuretic Peptide 45 pg/mL (<100)
[2024-08-03 16:49] LABS: Troponin-I High Sensitivity 15.7 ng/L (<3.5-17.0)
[2024-08-03 17:01] LABS: Osmolality Urine 371 mosm/kg (373-1093)
[2024-08-03 17:45] VITALS: BP 129/74; PULSE 71; RESP 16; O2SAT 97
--- NOTE | 2024-08-03 18:02 | PM.IMHP ---
History of Present Illness Date of Service: 08/03/24 Chief Complaint: Fall, weakness, cough An 88 years old lady with PMH of HTN, hypothyroidism, OUD, OA, HLD among others who presents to ED from [facility] after falling incident with increase weakness and cough. The patient was unable to provide much of history but daughter was at the bedside and reported her mother fell yesterday at the facility and was helped back to the chair with no significant complaitns but this morning she was unable to stand up from weakness and fear of falling. No chest pain, palpitations, SOB, nausea, vomiting, diarrhea or urinary symptoms. No syncope reported or abnormal movement. it is unclear falling as the patient was alone and unwittnessed event. The patient report right hip pain. The patient has been getting weaker recently with reported cough and decreased oral intake. reporting chills but no fever. In ED found to have hyponatremia, Elevated CPK and low grade fever with evidence of infiltrates in her lungs. Admitted for further evaluation and treatment. Review of Systems Review of Systems: No fever but reporting chills or weakness No chest pain, palpitation No shortness of breath but has coughing No abdominal pain, nausea or vomiting No urinary symptoms No rash or wounds PMFSH Medical History Multinodular goiter (nontoxic) Arthritis Hx of flexible sigmoidoscopy COVID-19 vaccine series completed Gastric ulcer Hyperthyroidism History of blood transfusion High cholesterol Hypertension Surgical History Hx of cataract extraction History of tonsillectomy S/P [facility] History of endoscopy Social History Household Members: Family Household Members Other:: 2 family home-daughter lives on 1st floor Housing: House Are you a primary healthcare consultant to a significant other at home: No Do you presently have visiting nurse or other home services: No Alcohol intake: current Alcohol type: wine Patient Tobacco Use Status: Former Tobacco user Tobacco use type: Cigarette Smoked in Last 30 Days: No e-Cigarette/Vaping Use: Never Used Second Hand Smoke Exposure: No Use of substances other than those prescribed or required for medical reasons: No Advance Directives: No Advance Directives Information Provided: Yes Do you have a plan to hurt others: No Plan service: No Current occupational status: retired Cognitive needs: Yes (cane) Hearing needs: No Vision needs: Yes (Reading glasses) Meds Allergies Allergy/AdvReac Type Severity Reaction Status Date / Time amoxicillin AdvReac Intermediate Diarrhea Verified 08/03/24 11:49 hydrochlorothiazide AdvReac Intermediate hypercalcem Verified 06/07/24 11:12 ia Active Medications: Current Medications Acetaminophen (Acetaminophen 325 Mg Tablet) 650 mg PO Q6H PRN PRN Reason: Pain, Mild 1-3,fever,headache Benzonatate (Benzonatate 100 Mg Capsule) 100 mg PO TID PRN PRN Reason: Cough Calcium Carbonate (Calcium Carbonate 750 Mg Tab.Chew) 750 mg PO Q4H PRN PRN Reason: Heartburn Ceftriaxone Sodium (Ceftriaxone Sodium 1 Gm Vial) 1 gm IVPUSH Q24H MUNIRA Enoxaparin Sodium (Enoxaparin Sodium 30 Mg/0.3 Ml Syringe) 30 mg SUBCUT Q24H [facility] Azithromycin 500 mg/ Sodium (Chloride) 250 mls @ 125 mls/hr IV Q24H [facility] Magnesium Hydroxide (Milk Of Magnesia 30 Ml Oral.Susp) 30 ml PO DAILY PRN PRN Reason: Constipation Melatonin (Melatonin 3 Mg Tablet) 6 mg PO BEDTIME PRN PRN Reason: Insomnia Metoprolol Succinate (Metoprolol Succinate Er 100 Mg Tab.Er.24h) 200 mg PO DAILY [facility]; Protocol Omeprazole (Omeprazole 40 Mg Capsule.Dr) 40 mg PO BID@0630,1630 [facility] Ondansetron HCl (Ondansetron Hcl 4 Mg/2 Ml Vial) 4 mg IVPUSH Q8H PRN PRN Reason: Nausea and Vomiting Sodium Chloride (0.9 % Sodium Chloride Flush 3 Ml Syringe) 3 ml IVFLUSH QSHIFT [facility] Home Medications ?Medication ?Instructions ?Recorded ?Confirmed ?Last Taken ?Type omeprazole 40 mg capsule,delayed 40 mg PO DAILY@0630 08/03/24 Unknown History release Physical Exam Vital Signs and Narrative: Vital Signs: Last Vital Signs Temp 99.1 F 08/03/24 16:34 Pulse 71 08/03/24 17:45 Resp 16 08/03/24 17:45 BP 129/74 08/03/24 17:45 Pulse Ox 97 08/03/24 17:45 O2 Del Method Room Air 08/03/24 17:45 BMI result Body Mass Index 23.5 Const: Other: Constitutional : Awake, interactive, not in distress Neck : Normal inspection, Supple Cardiovascular : RRR, no JVP, no lower extremity edema Respiratory : good bilateral air entry, no crackles, wheezes or rhonchi Gastrointestinal: soft, lax, Normal bowel sounds, Non tender Skin : Warm, Dry Extremities: Left shoulder dislocation anteriorlay but moving her arm Neurological : Alert & oriented to self and place, No focal deficit Results Labs 08/03/24 12:38 08/03/24 13:58 Labs: Laboratory Results - last 24 hr 08/03/24 08/03/24 08/03/24 12:37 12:38 13:58 MCV 84.6 MCH 29.7 MCHC 35.1 H RDW 12.7 Plt Count 268 D MPV 9.5 Immature Gran % (Auto) 0.3 Neut % (Auto) 59.1 Lymph % (Auto) 19.4 L [place] % (Auto) 20.0 H Eos % (Auto) 0.6 Baso % (Auto) 0.6 Lymph # (Auto) 1.5 [place] # (Auto) 1.6 H Eos # (Auto) 0.1 Baso # (Auto) 0.1 Abs Immat Gran (auto) 0.02 Absolute Neuts (auto) 4.7 Absolute Nucleated RBC 0.000 Nucleated RBC % (auto) 0.0 Smear Tech's Comments VERIFIED Anion Gap 12 Estim Creat Clear Calc 51.5 Estimated GFR > 60 Random Glucose 94 Osmolality Calcium 9.3 D Magnesium 1.8 Total Bilirubin 0.6 AST 58 H ALT 10 Alkaline Phosphatase 83 Total Creatine Kinase 497 H B-Natriuretic Peptide 45 Total Protein 5.8 L Albumin 3.2 L Lipase 13 Urine Color Dark Yellow Urine Appearance Cloudy Urine pH 6.0 Ur Specific [place] 1.015 Urine Protein 30 (1+) H Urine Glucose (UA) Negative Urine Ketones Trace Urine Blood Negative Urine Nitrite Negative Ur Leukocyte Esterase Large (3+) H Urine RBC 0-2 Urine WBC >50 H Ur Squamous Epith Cells 0-2 Urine Bacteria None Seen Hyaline Casts 0-2 Urine Osmolality 371 L Ur Random Sodium 33.0 Influenza Type A (PCR) NEGATIVE Influenza Type B (PCR) NEGATIVE RSV RNA Qual (PCR) NEGATIVE SARS-CoV-2 RNA (RT-PCR) NEGATIVE 08/03/24 15:16 MCV MCH MCHC RDW Plt Count MPV Immature Gran % (Auto) Neut % (Auto) Lymph % (Auto) [place] % (Auto) Eos % (Auto) Baso % (Auto) Lymph # (Auto) [place] # (Auto) Eos # (Auto) Baso # (Auto) Abs Immat Gran (auto) Absolute Neuts (auto) Absolute Nucleated RBC Nucleated RBC % (auto) Smear Tech's Comments Anion Gap Estim Creat Clear Calc Estimated GFR Random Glucose Osmolality 271 L Calcium Magnesium Total Bilirubin AST ALT Alkaline Phosphatase Total Creatine Kinase B-Natriuretic Peptide Total Protein Albumin Lipase Urine Color Urine Appearance Urine pH Ur Specific [place] Urine Protein Urine Glucose (UA) Urine Ketones Urine Blood Urine Nitrite Ur Leukocyte Esterase Urine RBC Urine WBC Ur Squamous Epith Cells Urine Bacteria Hyaline Casts Urine Osmolality Ur Random Sodium Influenza Type A (PCR) Influenza Type B (PCR) RSV RNA Qual (PCR) SARS-CoV-2 RNA (RT-PCR) Assessment and Plan (1) Recurrent falls: Status: Acute (2) Acute hyponatremia: Status: Acute (3) Pneumonia: Status: Acute (4) UTI (urinary tract infection): Status: Acute Plan An 88 years old lady with PMH of HTN, hypothyroidism, OUD, OA, HLD among others who presents to ED from [facility] after falling incident with increase weaknes Fall CT and XR with no acute fracture PT eval Pneumonia noticed on CXR cough med Azithromycin and Ceftriaxone UTI pending culture n Ceftriaxone Hyponatremia, acute on chronic likely true hyponatremia encourage PO intake follow BMP Elevated CPK at risk of Rhabdo gentle IVF pending med rec DVT PPx Lovenox Code status: DNR\DNI confirmed with daughter and patient The patient will need 2 overnight hospital stay for treatment of pneumonia and hyponatremia pending PT evaluation Quality Stroke Does the patient have a stroke diagnosis?: No VTE Prior VTE?: No VTE Risk Level:: Medical - moderate - high VTE Device Contraindication: Treatment Not Indicated VTE Drug Contraindication: N/A - Med Ordered
--- NOTE | 2024-08-03 18:43 | PHA.MEDREC ---
Pharmacy Consult ? Medication Reconciliation Pharmacy has completed the medication reconciliation. Med list faxed from [facility]. If in need of future inquiry, [facility] asks for patient's room number, which is Room 213.
[2024-08-03] MEDS: Enoxaparin Sodium 40 MG/0.4 ML SYRINGE SUBCUT (19:26)
[2024-08-03] MEDS: 0.9 % Sodium Chloride 1,000 ML 80 ML IVCONT (19:27)
[2024-08-03] MEDS: Omeprazole 40 MG CAPSULE.DR PO (19:27)
[2024-08-03 20:10] VITALS: BP 118/84; PULSE 81; RESP 16; TEMP 36.3; O2SAT 96
[2024-08-03 20:22] VITALS: BMI 22.2
[2024-08-04 03:04] VITALS: BP 114/57; PULSE 79; RESP 16; TEMP 37.1; O2SAT 96
[2024-08-04] MEDS: 0.9 % Sodium Chloride 1,000 ML 80 ML IVCONT (05:57)
[2024-08-04] MEDS: Omeprazole 40 MG CAPSULE.DR PO ×2 (05:58→15:59)
[2024-08-04 06:34] LABS: Basophils Percent Auto 0.8 % (0-2); Eosinophils Absolute Auto 0.1 X10*3/uL (0.0-0.4); Hematocrit 39.9 % (37.0-47.0); Hemoglobin 14.2 g/dl (12.0-16.0); Imm Gran Abs Auto 0.01 X10*3/uL (0.00-0.03); Imm Gran Pct Auto 0.2 % (0.0-0.4); Lymphocytes Absolute Auto 1.1 X10*3/uL (1.2-4.9); Lymphocytes Percent Auto 22.7 % (20-40); MANUAL DIFF FLAG SCAN; Mean Corpuscular HGB Conc 35.6 g/dl (31.0-35.0); Mean Corpuscular Volume 89.9 fL (80.0-98.0); Mean Platelet Volume 9.3 fL (9.4-12.3); Monocytes Absolute Auto 0.8 X10*3/uL (0.1-1.2); Monocytes Percent Auto 16.6 % (2-11); Neutrophils Absolute Auto 2.9 x10*3/uL (2.0-8.3); Neutrophils Percent Auto 58.7 % (45-73); Platelet Count 250 X10*3/uL (160-400); Red Blood Count 4.44 X10*6/uL (4.20-5.50); Red Cell Distribution Width 14.1 % (11.0-16.0); SCAN SMEAR FLAG 1; White Blood Count 4.9 X10*3/uL (4.8-10.8)
[2024-08-04 06:46] LABS: Anion Gap 12 (12-20); Blood Urea Nitrogen 12 mg/dL (9-16); Calcium 9.1 mg/dL (8.4-10.2); Carbon Dioxide 23 mmol/L (22-29); Chloride 101 mmol/L (96-108); Creatinine Clr Calc Pharmacy 54.1; Estimated Glomerular Filt Rate > 60; Glucose Random 110 mg/dL (60-115); Potassium 3.9 mmol/L (3.3-5.1); Sodium 132 mmol/L (135-145)
[2024-08-04 07:21] LABS: SLIDE REVIEW VERIFIED
[2024-08-04 07:28] VITALS: BP 152/78; PULSE 81; RESP 18; TEMP 36.6; O2SAT 94
[2024-08-04] MEDS: Metoprolol Succinate ER 100 MG TAB.ER.24H 200 MG PO (07:53)
[2024-08-04] MEDS: 0.9 % Sodium Chloride Flush 3 ML SYRINGE IVFLUSH ×3 (07:53→20:49)
--- NOTE | 2024-08-04 08:50 | PC.NURSE ---
Addendum entered by Leslie Chowdary RN 08/04/24 14:57: 14:57- MD Flood made aware pt bladder scan 816ml. Per MD place f/c for retention, pt previously straight cathed 2x prior. Pt tolerated well, 900ml of yellow urine emptied on initial insertion. Original Note: Pt states she has not voided since last night, pt states she has mild urge to urinate, this RN attempted to stand patient up to get pt to bedside commode with 2A and walker, pt was too weak at this time and had poor balance. Pt was bladder scanned for over 900ml. made aware, orders to straight cath. 962Ml of concentrated yellow urine drained. Pt due to void at 1400.
[2024-08-04 10:08] VITALS: BP 137/69
[2024-08-04] MEDS: Acetaminophen 325 MG TABLET 650 MG PO ×2 (10:08→16:00)
[2024-08-04] MEDS: amLODIPine Besylate 5 MG TABLET PO (10:08)
--- NOTE | 2024-08-04 10:31 | HO.SKINPHOTO ---
Pt noted to have area of skin break down on buttocks/coccyx which daughter states pt had prior to arrival. Rash rashy area on buttocks, and open area noted. Site cleansed pat dried, triad applied to skin and large foam dressing applied to coccyx, air loss pump already in place, encouraged turn and reposition every Q2 hours. Left heel noted to be red, non-blanchable, small purple area noted see picture, skin prep and foam applied. Right ankle noted to have areas of non-blanchable redness, skin prep applied, foam applied to right ankle and right heel, heels elevated off of bed. Buttocks Left Heel Left heel Right ankle/heel
--- NOTE | 2024-08-04 11:27 | P.PNIM_ITS ---
Subjective Subjective Date of Service: 08/04/24 Interval History: Seen and evaluated this morning developed retention overnight Feels better overall Review of Systems No fever but reporting chills or weakness No chest pain, palpitation No shortness of breath but has coughing No abdominal pain, nausea or vomiting No urinary symptoms No rash or wounds Physical Exam 2 Vital Signs: Vital Signs: Last Vital Signs Temp 97.8 F 08/04/24 07:28 Pulse 81 08/04/24 07:28 Resp 18 08/04/24 07:28 BP 137/69 08/04/24 10:08 Pulse Ox 94 08/04/24 07:28 O2 Del Method Room Air 08/04/24 07:28 BMI result Body Mass Index 22.2 Const: Other: Constitutional : Awake, interactive, not in distress Neck : Normal inspection, Supple Cardiovascular : RRR, no JVP, no lower extremity edema Respiratory : good bilateral air entry, no crackles, wheezes or rhonchi Gastrointestinal: soft, lax, Normal bowel sounds, Non tender Skin : Warm, Dry Extremities: Left shoulder dislocation anteriorlay but moving her arm Neurological : Alert & oriented to self and place, No focal deficit Objective Data Active Medications Acetaminophen (Acetaminophen 325 Mg Tablet) 650 mg PO Q6H PRN PRN Reason: Pain, Mild 1-3,fever,headache Last Admin: 08/04/24 10:08 Dose: 650 mg Documented By: LORENZO Amlodipine Besylate (Amlodipine Besylate 5 Mg Tablet) 5 mg PO DAILY [facility]; Protocol Last Admin: 08/04/24 10:08 Dose: 5 mg Documented By: LORENZO Benzonatate (Benzonatate 100 Mg Capsule) 100 mg PO TID PRN PRN Reason: Cough Calcium Carbonate (Calcium Carbonate 750 Mg Tab.Chew) 750 mg PO Q4H PRN PRN Reason: Heartburn Ceftriaxone Sodium (Ceftriaxone Sodium 1 Gm Vial) 1 gm IVPUSH Q24H M[facility] Enoxaparin Sodium (Enoxaparin Sodium 40 Mg/0.4 Ml Syringe) 40 mg SUBCUT Q24H [facility] Last Admin: 08/03/24 19:26 Dose: 40 mg Documented By: NICK Folic Acid (Folic Acid 1 Mg Tablet) 1 mg PO DAILY MUN[facility] Magnesium Hydroxide (Milk Of Magnesia 30 Ml Oral.Susp) 30 ml PO DAILY PRN PRN Reason: Constipation Melatonin (Melatonin 3 Mg Tablet) 6 mg PO BEDTIME PRN PRN Reason: Insomnia Methimazole (Methimazole 5 Mg Tablet) 5 mg PO DAILY [facility] Last Admin: 08/04/24 11:03 Dose: Not Given Documented By: LORENZO Non-Admin Reason: Med Not Available Metoprolol Succinate (Metoprolol Succinate Er 100 Mg Tab.Er.24h) 200 mg PO DAILY [facility]; Protocol Last Admin: 08/04/24 07:53 Dose: 200 mg Documented By: LORENZO Mirtazapine (Mirtazapine 7.5 Mg Tablet) 3.75 mg PO BEDTIME [facility] Omeprazole (Omeprazole 40 Mg Capsule.Dr) 40 mg PO BID@0630,1630 [facility] Last Admin: 08/04/24 05:58 Dose: 40 mg Documented By: HECTOR Ondansetron HCl (Ondansetron Hcl 4 Mg/2 Ml Vial) 4 mg IVPUSH Q8H PRN PRN Reason: Nausea and Vomiting Sodium Chloride (0.9 % Sodium Chloride Flush 3 Ml Syringe) 3 ml IVFLUSH QSHIFT [facility] Last Admin: 08/04/24 07:53 Dose: 3 ml Documented By: LORENZO Labs 08/04/24 06:20 08/04/24 06:20 Labs: Laboratory Results - last 24 hr 08/03/24 08/03/24 08/03/24 12:37 12:38 13:58 MCV 84.6 MCH 29.7 MCHC 35.1 H RDW 12.7 Plt Count 268 D MPV 9.5 Immature Gran % (Auto) 0.3 Neut % (Auto) 59.1 Lymph % (Auto) 19.4 L [place] % (Auto) 20.0 H Eos % (Auto) 0.6 Baso % (Auto) 0.6 Lymph # (Auto) 1.5 [place] # (Auto) 1.6 H Eos # (Auto) 0.1 Baso # (Auto) 0.1 Abs Immat Gran (auto) 0.02 Absolute Neuts (auto) 4.7 Absolute Nucleated RBC 0.000 Nucleated RBC % (auto) 0.0 Smear Tech's Comments VERIFIED Anion Gap 12 Estim Creat Clear Calc 51.5 Estimated GFR > 60 Random Glucose 94 Osmolality Calcium 9.3 D Magnesium 1.8 Total Bilirubin 0.6 AST 58 H ALT 10 Alkaline Phosphatase 83 Total Creatine Kinase 497 H B-Natriuretic Peptide 45 Total Protein 5.8 L Albumin 3.2 L Lipase 13 Urine Color Dark Yellow Urine Appearance Cloudy Urine pH 6.0 Ur Specific [place] 1.015 Urine Protein 30 (1+) H Urine Glucose (UA) Negative Urine Ketones Trace Urine Blood Negative Urine Nitrite Negative Ur Leukocyte Esterase Large (3+) H Urine RBC 0-2 Urine WBC >50 H Ur Squamous Epith Cells 0-2 Urine Bacteria None Seen Hyaline Casts 0-2 Urine Osmolality 371 L Ur Random Sodium 33.0 Influenza Type A (PCR) NEGATIVE Influenza Type B (PCR) NEGATIVE RSV RNA Qual (PCR) NEGATIVE SARS-CoV-2 RNA (RT-PCR) NEGATIVE 08/03/24 08/04/24 15:16 06:20 MCV 89.9 D MCH 32.0 MCHC 35.6 H RDW 14.1 Plt Count 250 MPV 9.3 L Immature Gran % (Auto) 0.2 Neut % (Auto) 58.7 Lymph % (Auto) 22.7 [place] % (Auto) 16.6 H Eos % (Auto) 1.0 Baso % (Auto) 0.8 Lymph # (Auto) 1.1 L [place] # (Auto) 0.8 Eos # (Auto) 0.1 Baso # (Auto) 0.0 Abs Immat Gran (auto) 0.01 Absolute Neuts (auto) 2.9 Absolute Nucleated RBC 0.000 Nucleated RBC % (auto) 0.0 Smear Tech's Comments VERIFIED Anion Gap 12 Estim Creat Clear Calc 54.1 Estimated GFR > 60 Random Glucose 110 Osmolality 271 L Calcium 9.1 Magnesium Total Bilirubin AST ALT Alkaline Phosphatase Total Creatine Kinase 690 H B-Natriuretic Peptide Total Protein Albumin Lipase Urine Color Urine Appearance Urine pH Ur Specific [place] Urine Protein Urine Glucose (UA) Urine Ketones Urine Blood Urine Nitrite Ur Leukocyte Esterase Urine RBC Urine WBC Ur Squamous Epith Cells Urine Bacteria Hyaline Casts Urine Osmolality Ur Random Sodium Influenza Type A (PCR) Influenza Type B (PCR) RSV RNA Qual (PCR) SARS-CoV-2 RNA (RT-PCR) Assessment and Plan (1) Anterior dislocation of humerus: Status: Acute (2) UTI (urinary tract infection): Status: Acute (3) Hyponatremia: Status: Acute Plan An 88 years old lady with PMH of HTN, hypothyroidism, OUD, OA, HLD among others who presents to ED from [facility] after falling incident with increase weaknes Fall CT and XR with no acute fracture PT eval UTI pending culture n Ceftriaxone suspected Pneumonia noticed infiltrates on CXR cough med on Ceftriaxone for now Hyponatremia, acute on chronic likely true hyponatremia encourage PO intake improving follow BMP Urine retention Straight cath likely from infection, to treat and monitor Elevated CPK improved dc IVF pending med rec DVT PPx Lovenox Code status: DNR\DNI confirmed with daughter and patient The patient will need overnight hospital stay for treatment of pneumonia and hyponatremia pending PT evaluation Quality Stroke Does the patient have a stroke diagnosis?: No VTE Prior VTE?: No VTE Risk Level:: Medical - moderate - high VTE Device Contraindication: Treatment Not Indicated VTE Drug Contraindication: N/A - Med Ordered
--- NOTE | 2024-08-04 14:18 | MHC.CM.PN ---
CM assessment completed w/ patient's daughter, Joan, via telephone. Patient w/ dx dementia - poor historian. IMM delivered. Comes from [facility]. Ambulates w/ walker. Per daughter, independent w/ care. Active w/ [facility] & was receiving in home OT for L shoulder pain through [facility] program. PCP: Judy Dumont [employer] Joan reports she is invoked HCP. Documentation requested. DP: Await PT eval. Anticipate STR recommendation. No facility preference. Will call [facility] tomorrow when open for a list of contracted facilities. CM will continue to follow.
[2024-08-04] MEDS: cefTRIAXone sodium 1 GM VIAL IVPUSH (14:38)
[2024-08-04 16:08] VITALS: BP 152/75; PULSE 73; RESP 18; TEMP 36.1; O2SAT 96
[2024-08-04 19:24] VITALS: BP 131/76; PULSE 71; RESP 17; TEMP 36.4; O2SAT 96
[2024-08-04] MEDS: Mirtazapine 7.5 MG TABLET 3.75 MG PO (20:48)
[2024-08-04] MEDS: Enoxaparin Sodium 40 MG/0.4 ML SYRINGE SUBCUT (20:49)
[2024-08-05 03:07] VITALS: BP 140/70; PULSE 98; RESP 17; TEMP 36.7; O2SAT 97
[2024-08-05] MEDS: Omeprazole 40 MG CAPSULE.DR PO ×2 (05:57→15:32)
[2024-08-05 06:40] LABS: Anion Gap 10 (12-20); Blood Urea Nitrogen 8 mg/dL (9-16); Calcium 8.7 mg/dL (8.4-10.2); Carbon Dioxide 23 mmol/L (22-29); Chloride 103 mmol/L (96-108); Creatinine Clr Calc Pharmacy 67.9; Estimated Glomerular Filt Rate > 60; Glucose Random 98 mg/dL (60-115); Potassium 3.1 mmol/L (3.3-5.1); Sodium 133 mmol/L (135-145)
[2024-08-05 07:39] VITALS: BP 135/73; PULSE 77; RESP 18; TEMP 36.6; O2SAT 96
[2024-08-05] MEDS: Potassium Chloride Packet 20 MEQ PACKET PO (08:13)
[2024-08-05] MEDS: Metoprolol Succinate ER 100 MG TAB.ER.24H 200 MG PO (08:14)
[2024-08-05] MEDS: amLODIPine Besylate 5 MG TABLET PO (08:14)
[2024-08-05] MEDS: Folic Acid 1 MG TABLET PO (08:14)
[2024-08-05] MEDS: Tamsulosin HCL 0.4 MG CAPSULE PO (08:14)
[2024-08-05] MEDS: 0.9 % Sodium Chloride Flush 3 ML SYRINGE IVFLUSH ×2 (08:18→21:05)
[2024-08-05] MEDS: methIMAzole 5 MG TABLET PO (08:32)
--- NOTE | 2024-08-05 09:48 | P.PNIM_ITS ---
Subjective Subjective Date of Service: 08/05/24 Interval History: Seen and evaluated this morning urine cultures negative dozier in place no other events Feels better overall Review of Systems Review of Systems: Yes all other systems are reviewed and are negative Physical Exam 2 Vital Signs: Vital Signs: Last Vital Signs Temp 97.9 F 08/05/24 07:39 Pulse 77 08/05/24 07:39 Resp 18 08/05/24 07:39 BP 135/73 08/05/24 07:39 Pulse Ox 96 08/05/24 07:39 O2 Del Method Room Air 08/05/24 07:39 BMI result Body Mass Index 22.2 Const: Other: Constitutional : Awake, interactive, not in distress Neck : Normal inspection, Supple Cardiovascular : RRR, no JVP, no lower extremity edema Respiratory : good bilateral air entry, no crackles, wheezes or rhonchi Gastrointestinal: soft, lax, Normal bowel sounds, Non tender Skin : Warm, Dry Extremities: Left shoulder dislocation anteriorlay but moving her arm Neurological : Alert & oriented to self and place, No focal deficit Objective Data Active Medications Acetaminophen (Acetaminophen 325 Mg Tablet) 650 mg PO Q6H PRN PRN Reason: Pain, Mild 1-3,fever,headache Last Admin: 08/04/24 16:00 Dose: 650 mg Documented By: LORENZO Amlodipine Besylate (Amlodipine Besylate 5 Mg Tablet) 5 mg PO DAILY [facility]; Protocol Last Admin: 08/05/24 08:14 Dose: 5 mg Documented By: CORRINA Benzonatate (Benzonatate 100 Mg Capsule) 100 mg PO TID PRN PRN Reason: Cough Calcium Carbonate (Calcium Carbonate 750 Mg Tab.Chew) 750 mg PO Q4H PRN PRN Reason: Heartburn Ceftriaxone Sodium (Ceftriaxone Sodium 1 Gm Vial) 1 gm IVPUSH Q24H [facility] Last Admin: 08/04/24 14:38 Dose: 1 gm Documented By: LORENZO Enoxaparin Sodium (Enoxaparin Sodium 40 Mg/0.4 Ml Syringe) 40 mg SUBCUT Q24H [facility] Last Admin: 08/04/24 20:49 Dose: 40 mg Documented By: HECTOR Folic Acid (Folic Acid 1 Mg Tablet) 1 mg PO DAILY [facility] Last Admin: 08/05/24 08:14 Dose: 1 mg Documented By: CORRINA Magnesium Hydroxide (Milk Of Magnesia 30 Ml Oral.Susp) 30 ml PO DAILY PRN PRN Reason: Constipation Melatonin (Melatonin 3 Mg Tablet) 6 mg PO BEDTIME PRN PRN Reason: Insomnia Methimazole (Methimazole 5 Mg Tablet) 5 mg PO DAILY [facility] Last Admin: 08/05/24 08:32 Dose: 5 mg Documented By: CORRINA Metoprolol Succinate (Metoprolol Succinate Er 100 Mg Tab.Er.24h) 200 mg PO DAILY [facility]; Protocol Last Admin: 08/05/24 08:14 Dose: 200 mg Documented By: CORRINA Omeprazole (Omeprazole 40 Mg Capsule.) 40 mg PO BID@0630,1630 [facility] Last Admin: 08/05/24 05:57 Dose: 40 mg Documented By: HECTOR Ondansetron HCl (Ondansetron Hcl 4 Mg/2 Ml Vial) 4 mg IVPUSH Q8H PRN PRN Reason: Nausea and Vomiting Sodium Chloride (0.9 % Sodium Chloride Flush 3 Ml Syringe) 3 ml IVFLUSH QSHIFT [facility] Last Admin: 08/05/24 08:18 Dose: 3 ml Documented By: CORRINA Tamsulosin HCl (Tamsulosin Hcl 0.4 Mg Capsule) 0.4 mg PO DAILY [facility] Last Admin: 08/05/24 08:14 Dose: 0.4 mg Documented By: CORRINA Labs 08/04/24 06:20 08/05/24 05:51 Labs: Laboratory Results - last 24 hr 08/05/24 05:51 Anion Gap 10 L Estim Creat Clear Calc 67.9 Estimated GFR > 60 Random Glucose 98 Calcium 8.7 Total Creatine Kinase 910 H Microbiology Microbiology Results: Microbiology 08/03/24 Unknown Urine Culture - Final Urine Catheterized - Straight Catheter Assessment and Plan (1) UTI (urinary tract infection): Status: Acute (2) Anterior dislocation of humerus: Status: Acute (3) Hyponatremia: Status: Acute (4) Acute retention of urine: Status: Acute (5) Acute hypokalemia: Status: Acute Plan An 88 years old lady with PMH of HTN, hypothyroidism, OUD, OA, HLD among others who presents to ED from [facility] after falling incident with increase weaknes Fall CT and XR with no acute fracture PT eval pending Urine retention concerning for chronic rather than acute Straight cath failed, placed a dozier , to dc today start Tamsulosin increase physical activity PRN Straight cath (she is unable to do self cath) DC Mirtazapine Bacteruria Mix growth in culture Ceftriaxone, to finish 3 days only suspected Pneumonia noticed infiltrates on CXR cough med on Ceftriaxone for now Hyponatremia, acute on chronic likely true hyponatremia encourage PO intake improving to 133 follow BMP Acute hypokalemia replacement given, follow BMP Elevated CPK trending up to 900s, kidney function stable start IVF DVT PPx Lovenox Code status: DNR\DNI confirmed with daughter and patient The patient will need overnight hospital stay for treatment of pneumonia and hyponatremia pending PT evaluation Quality Stroke Does the patient have a stroke diagnosis?: No VTE Prior VTE?: No VTE Risk Level:: Medical - moderate - high VTE Device Contraindication: Treatment Not Indicated VTE Drug Contraindication: N/A - Med Ordered
[2024-08-05] MEDS: 0.9 % Sodium Chloride 1,000 ML 100 ML IVCONT ×2 (10:54→21:10)
--- NOTE | 2024-08-05 11:08 | PC.NURSE ---
Box d/c'd per MD orders 08/05/24 10am - will scan bladder in 4 hrs per MD instructions.
--- NOTE | 2024-08-05 11:25 | MHC.CM.PN ---
Addendum entered by Enid Driver, RN 08/05/24 15:01: PT rec STR. Daughter/HCP has accepted bed at [facility], who will initiate auth. Original Note: Awaiting PT eval. LM for Mariann SHAKILA nurse at [facility] ([phone]) and LM for Jeanette, patient's SW CM at [facility] ([phone]) for list of facilities [facility] is contracted with. Daughter would like to review all faciltiies on list.
[2024-08-05 11:40] VITALS: BMI 22.2
--- NOTE | 2024-08-05 11:49 | MHC.CLN ---
NUTRITION DIET=REGULAR. REPORTED DECLINE IN PO INTAKE PRIOR TO ADM. SKIN WITH STAGE II PRESSURE INJURY TO COCCYX. ADDING ENSURE TID TO PROMOTE NUTRITIONAL INTAKE AND SKIN INTEGRITY. SUPPLEMENT PROVIDES 1050 KCALS, 60 G PROTEIN. FOLLOW FOR PO INTAKE AND WOUND HEALING. SEE CLINICAL NUTRITION ASSESSMENT 08/05/24.
[2024-08-05 13:11] VITALS: BP 135/73; PULSE 77; O2SAT 96
[2024-08-05] MEDS: cefTRIAXone sodium 1 GM VIAL IVPUSH (15:32)
[2024-08-05 15:37] VITALS: BP 137/69; PULSE 78; RESP 16; TEMP 36.8; O2SAT 97
[2024-08-05 19:11] VITALS: BP 140/73; PULSE 83; RESP 17; TEMP 36.1; O2SAT 96
[2024-08-05] MEDS: Acetaminophen 325 MG TABLET 650 MG PO (21:06)
[2024-08-05] MEDS: Melatonin 3 MG TABLET 6 MG PO (21:07)
[2024-08-06 03:22] VITALS: BP 137/72; PULSE 73; RESP 17; TEMP 36; O2SAT 96
[2024-08-06] MEDS: Omeprazole 40 MG CAPSULE.DR PO ×2 (06:19→15:32)
[2024-08-06] MEDS: 0.9 % Sodium Chloride 1,000 ML 100 ML IVCONT (06:21)
[2024-08-06 07:17] VITALS: BP 143/65; PULSE 73; RESP 18; TEMP 36.2; O2SAT 96
[2024-08-06] MEDS: Metoprolol Succinate ER 100 MG TAB.ER.24H 200 MG PO (08:29)
[2024-08-06] MEDS: Tamsulosin HCL 0.4 MG CAPSULE PO (08:29)
[2024-08-06] MEDS: amLODIPine Besylate 5 MG TABLET PO (08:29)
[2024-08-06] MEDS: Folic Acid 1 MG TABLET PO (08:30)
[2024-08-06] MEDS: 0.9 % Sodium Chloride Flush 3 ML SYRINGE IVFLUSH ×2 (08:32→15:33)
[2024-08-06] MEDS: Acetaminophen 325 MG TABLET 650 MG PO (08:33)
[2024-08-06] MEDS: methIMAzole 5 MG TABLET PO (09:07)
[2024-08-06 10:36] LABS: Anion Gap 11 (12-20); Blood Urea Nitrogen 6 mg/dL (9-16); Calcium 9.1 mg/dL (8.4-10.2); Carbon Dioxide 21 mmol/L (22-29); Chloride 104 mmol/L (96-108); Creatinine Clr Calc Pharmacy 69.4; Estimated Glomerular Filt Rate > 60; Glucose Random 110 mg/dL (60-115); Potassium 3.1 mmol/L (3.3-5.1); Sodium 133 mmol/L (135-145)
--- NOTE | 2024-08-06 11:06 | PM.DS ---
DS: Providers Provider Date of Service: 08/06/24 Date of admission: 08/03/24 17:55 Date of discharge: 08/06/24 Primary care physician: Unknown Physician Consults: 08/04/24 10:19 Consult to Wound Care Routine Reason for consultation: Stage 1 to heels, R ankle DTI?, open area coccyx, redness to coccyx DS: Diagnosis Discharge Diagnosis (1) Anterior dislocation of humerus: Status: Acute (2) Acute retention of urine: Status: Acute (3) Acute hypokalemia: Status: Acute (4) Hypokalemia: Status: Acute (5) Acute hyponatremia: Status: Acute (6) Rhabdomyolysis: Status: Acute DS: Summary Hospital Course Hospital Course: Admission note HPI An 88 years old lady with PMH of HTN, hypothyroidism, OUD, OA, HLD among others who presents to ED from [facility] after falling incident with increase weakness and cough. The patient was unable to provide much of history but daughter was at the bedside and reported her mother fell yesterday at the facility and was helped back to the chair with no significant complaitns but this morning she was unable to stand up from weakness and fear of falling. No chest pain, palpitations, SOB, nausea, vomiting, diarrhea or urinary symptoms. No syncope reported or abnormal movement. it is unclear falling as the patient was alone and unwittnessed event. The patient report right hip pain. The patient has been getting weaker recently with reported cough and decreased oral intake. reporting chills but no fever. In ED found to have hyponatremia, Elevated CPK and low grade fever with evidence of infiltrates in her lungs. Admitted for further evaluation and treatment. Hospital course The patient was treated for the following: # Fall with CT and XR with no acute fracture but chronic anterior dislocation of humerous which can be follow with outpatient orthopedics. PT evaluated the patient and recommended STR placement. # Acute Urine retention. The presentation is concerning for chronic rather than acute. Straight cath failed, placed a dozier which was discontinued as well and had voiding trials which she failed as she was started on Tamsulosin and discontinued Mirtazapine. Advised increase physical activity and continue Dozier care with a plan to follow with [facility] as outpatient for further work up and management. # Bacteruria has Mix growth in culture and treated with Ceftriaxone to finish 3 days only. she also had suspected Pneumonia as noticed infiltrates on CXR but no fever or dyspnea not convincing for lung infection. # Hyponatremia, acute on chronic likely true hyponatremia encouraged PO intake. improved to 133. # Acute hypokalemia. replacement given, follow BMP # Elevated CPK resembling acute rhabdomyolysis. trended down with IVF. advised well hydration and increase physical activity as tolerated. Discharge plan Keep dozier for and change every [address] To follow with dr Sparks at [facility] for further work up Continue Tamsulosin Discontinue Mirtazapine Melatonin as needed to help with insomina Increase physical therapy as tolerated Time Attestation Discharge Coordination Time (in mins): 38 Quality: Safe Use of Opioids Does Pt have an Active Cancer Diagnosis on the Problem List?: No Quality: Stroke Does the patient have a stroke diagnosis?: No Physical Exam Vital Signs: Vital Signs: Last Vital Signs Temp 97.1 F 08/06/24 07:17 Pulse 73 08/06/24 07:17 Resp 18 08/06/24 07:17 BP 143/65 H 08/06/24 07:17 Pulse Ox 96 08/06/24 07:17 O2 Del Method Room Air 08/06/24 07:17 BMI result Body Mass Index 22.2 Const: Other: Constitutional : Awake, interactive, not in distress Neck : Normal inspection, Supple Cardiovascular : RRR, no JVP, no lower extremity edema Respiratory : good bilateral air entry, no crackles, wheezes or rhonchi Gastrointestinal: soft, lax, Normal bowel sounds, Non tender Skin : Warm, Dry Extremities: Left shoulder dislocation anteriorlay but moving her arm Neurological : Alert & oriented to self and place, No focal deficit DS: Data Data Completed and Pending Completed studies during hospitalization [Text1]: Procedures Excision of Stomach, Pylorus, Via Natural or Artificial Opening Endoscopic, Diagnostic (02/25/21) Transfusion of Nonautologous Red Blood Cells into Peripheral Vein, Percutaneous Approach (02/25/21) Labs on day of discharge: Laboratory Results - last 24 hr 08/06/24 10:07 Sodium 133 L Potassium 3.1 L Chloride 104 Carbon Dioxide 21 L Anion Gap 11 L BUN 6 L Creatinine 0.46 L Estim Creat Clear Calc 69.4 Estimated GFR > 60 Random Glucose 110 Calcium 9.1 Total Creatine Kinase 855 H Imaging Chest x-ray: Radiologist's impression: Shoulder XR : IMPRESSION: 1. Anterior humeral dislocation. CXR: IMPRESSION: 1. Interstitial consolidation, differential considerations noted. Hip XR IMPRESSION: No acute findings. Discharge Plan Discharge Anticipated Discharge Date/Time: 08/06/24 10:50 Patient Disposition: Xfer SNF Discharge Diagnosis: Urine retention Falls Referrals: [facility] [Outside] - 1 Day (short term rehab) Physician,Unknown J [Primary Care Provider] - 1 Week Discharge Medications: New melatonin 3 mg Tablet 6 mg PO BEDTIME PRN (Reason: Insomnia) Qty: 30 0RF tamsulosin 0.4 mg Capsule 0.4 mg PO DAILY Qty: 90 0RF Continued amlodipine 5 mg tablet 5 mg PO DAILY Qty: 90 3RF folic acid 1 mg tablet 1 mg PO DAILY 90 Days Qty: 90 3RF methimazole 5 mg tablet 5 mg PO DAILY 90 Days Qty: 90 3RF metoprolol succinate 200 mg tablet extended release 24 hr 200 mg PO DAILY 90 Days Qty: 90 3RF cholecalciferol (vitamin D3) 50 mcg (2,000 unit) capsule 50 mcg PO DAILY 90 Days Qty: 90 3RF acetaminophen [Tylenol Extra Strength] 500 mg tablet 500 mg PO QID PRN (Reason: pain) Qty: 30 0RF cyanocobalamin (vitamin B-12) 1,000 mcg capsule 1,000 mcg PO DAILY Qty: 30 3RF Culturelle 15 billion cell capsule, sprinkle 1 cap PO BID Qty: 14 0RF potassium chloride [Klor-Con M20] 20 mEq tablet,ER particles/crystals 20 meq PO DAILY Qty: 30 0RF omeprazole 40 mg capsule,delayed release(DR/EC) 40 mg PO DAILY@0630 glucosamine-chondroitin [Osteo Bi-Flex] 250-200 mg tablet 1 tab PO DAILY Rx Instructions: give after food/meal Discontinued mirtazapine 7.5 mg tablet 3.75 mg PO BEDTIME 90 Days Qty: 45 0RF Patient Comments: Taking 1/2 dose daily Discharge Orders: Discharge Order (Routine); Ordered 08/06/24 Ordered By: Shanon Flood Diet: Advance to usual diet Activity on Discharge: As tolerated Stand Alone Forms: Patient Portal Discharge page Print Language: Swazi Care Plan Goals: Keep dozier for and change every [address] To follow with dr Sparks at [facility] for further work up Continue Tamsulosin Discontinue Mirtazapine Melatonin as needed to help with insomina Increase physical therapy as tolerated Health Concerns: Urine retention Falls Plan of Treatment: Dozier catheter Urology follow up Physical therapy Assessment: as above
--- NOTE | 2024-08-06 11:10 | P.CDIM_ITS ---
PROVIDER RESPONSE TEXT: To clarify, the appropriate diagnosis supported by the clinical indicators: Rhabdomyolysis: possible QUERY TEXT: PHYSICIAN'S DOCUMENTATION REQUEST Date of Query: 08/06/2024 09:16 AM EDT Patient Name: Libby Astorga Admit Date: 08/03/2024 Dear Shanon Flood MD, A review of the medical record indicates additional documentation may be needed. Please review below and update the documentation accordingly. Clinical Indicators: CPK 910 H IVF, IV Tylenol ordered for pain. Found down on the ground by staff, unclear how much time, falling. urine + bacteruria, Weakness, unable to stand up, noted deformity to left shoulder, does not endorse pain. Bruising noted to lateral aspect left shoulder in healing stages. Initially reported hip pain. Based on the above, could you clarify if there is a diagnosis that correlates with the above indicato rs: Rhabdomyolysis possible, probable, suspected, cannot rule out Traumatic Rhabdomyolysis possible, probable, suspected, etc. Other (explain) Clinically unable to determine (explain) Thank you, Stacey Garcia, CCS, CDIS Use of terms such as suspected, likely, concern for, or probable (associated with a specific diagnosi s that is being evaluated, monitored, or treated as if it exists) are acceptable and can be coded in the inpatient se tting, when documented at the time of discharge. Please use your independent medical judgment in providing your response. THIS QUERY IS PART OF THE PERMANENT MEDICAL RECORD
[2024-08-06] MEDS: Potassium Chloride ER 20 MEQ TAB.ER.PRT 40 MEQ PO (11:36)
--- NOTE | 2024-08-06 11:52 | HO.WOUND ---
Wound consult: Attempted 88yr old female admitted to [facility] on 08/03/24 see H&P for detailed history. Wound consult placed for Right ankle and Coccyx Present on admission - arrival to bedside patient was sitting in recliner chair. Will attempt assessment at future date and time.
--- NOTE | 2024-08-06 12:29 | MHC.CM.PN ---
[facility] not contracted w/ [facility]. [facility] has offered a bed and patient/family accepted. Per [facility] SHAKILA ANGELINA Waite, she will send auth. S transport scheduled for 4pm.
[2024-08-06 15:20] VITALS: BP 126/74; PULSE 83; RESP 16; TEMP 36.8; O2SAT 95
== END 2024-08-06 16:34 | disposition skilled nursing facility (03) | DRG 640 ==
LOC: HO.ED 14:07 → HO.EDOVER 18:07 → HO.S3 19:24
PROVIDERS: Physician Assistant Medical; Admitting Provider Student in an Organized Health Care Education/Training Program; Emergency Provider Emergency Medicine; Visit Provider Student in an Organized Health Care Education/Training Program
DX: E87.1 Hypo-osmolality and hyponatremia (principal); J18.9 Pneumonia, unspecified organism; M62.82 Rhabdomyolysis; E87.6 Hypokalemia; R33.9 Retention of urine, unspecified; M24.412 Recurrent dislocation, left shoulder; Z66 Do not resuscitate; E05.20 Thyrotoxicosis with toxic multinodular goiter without thyrotoxic crisis or storm; R29.6 Repeated falls; E21.3 Hyperparathyroidism, unspecified; Z20.822 Contact with and (suspected) exposure to COVID-19; Z87.891 Personal history of nicotine dependence; Z79.899 Other long term (current) drug therapy
CPT/HCPCS: 0241U; 36415; 70450; 71045; 72125; 73030; 73521; 73700; 80048; 80053; 81001; 81003; 82550; 83690; 83735; 83880; 83930; 83935; 84300; 84484; 85025; 87086; 97161; 99285; J0131; J0456; J0696; J1650

== ENCOUNTER → 2024-08-03 12:16 | Outpatient (BNV) | payer MEDICARE, MEDICAID, SELFPAY | PROVIDERS: Emergency Provider Emergency Medicine; Visit Provider Specialist | DX: M25.551 Pain in right hip (principal); M25.552 Pain in left hip; M25.512 Pain in left shoulder; Z03.89 Encounter for observation for other suspected diseases and conditions ruled out | CPT/HCPCS: 70450; 71045; 72125; 73030; 73521; 73700 ==

== ENCOUNTER → 2024-08-03 17:55 | Outpatient (BNV) | payer MEDICARE, MEDICAID, SELFPAY | PROVIDERS: Admitting Provider Student in an Organized Health Care Education/Training Program; Emergency Provider Emergency Medicine; Visit Provider Student in an Organized Health Care Education/Training Program | DX: S43.016A Anterior dislocation of unspecified humerus, initial encounter (principal); R33.8 Other retention of urine; E87.6 Hypokalemia; E87.1 Hypo-osmolality and hyponatremia; M62.82 Rhabdomyolysis | CPT/HCPCS: 99233; 99239 ==